=== PATIENT | male | born 1965 | race American Indian/Alaskan Native ===

== ENCOUNTER 2019-12-24 11:47 | Emergency (ER) | payer MEDICAID ==
--- NOTE | 2019-12-24 12:05 | Emergency Department Report ---
Blank Doc - Documentation Documentation: This is a 54-year-old male that presents with SI. This initial assessment/diagnostic orders/clinical plan/treatment(s) is/are subject to change based on patient's health status, clinical progression and re- assessment by fellow clinical providers in the ED. Further treatment and workup at subsequent clinical providers discretion. Patient/guardians urged not to elope from the ED as their condition may be serious if not clinically assessed and managed. Initial orders include: 1- Patient sent to MAIN ED for further evaluation and treatment 2- human resources receptionist was notified to have patient be brought back [facility]. 3- RN was notified to keep patient as close range and observation until room available 4- Patient presents with substantial risk of imminent harm to self, appears to be so unable to care for his/her own physical health and safety as to create an imminently life-endangering crisis, and has committed/expressed life endangering crisis to self. Due to this and other complaints, patient is put on psych hold.
[2019-12-24 13:15] LABS: Alanine Aminotransferase 28 units/L (7-56); Albumin 3.6 g/dL (3.9-5); BUN/Creatinine Ratio 5; Blood Urea Nitrogen 3 mg/dL (9-20); Hemolysis Index 20
[2019-12-24 13:27] LABS: Basophils % (Auto) 0.9 % (0.0-1.8); Eosinophils # (Auto) 0.2 K/mm3 (0.0-0.4); Eosinophils % (Auto) 4.6 % (0.0-4.3); Hematocrit 40.2 % (35.5-45.6); Hemoglobin 13.4 gm/dl (11.8-15.2); Lymphocytes # (Auto) 1.5 K/mm3 (1.2-5.4); Lymphocytes % (Auto) 36.3 % (13.4-35.0); Mean Corpuscular HGB Conc 33 % (32-34); Mean Corpuscular Volume 98 fl (84-94); Monocytes # (Auto) 0.5 K/mm3 (0.0-0.8); Monocytes % (Auto) 12.7 % (0.0-7.3); Platelet Count 406 K/mm3 (140-440); Red Blood Count 4.09 M/mm3 (3.65-5.03); Red Cell Distribution Width 15.5 % (13.2-15.2)
[2019-12-24] MEDS ORDERED: traMADol 50 MG TAB PO ONE (16:51)
--- NOTE | 2019-12-24 16:54 | Emergency Department Report ---
<SHON TOBIN - Last Filed: 12/24/19 16:55> ED Psych HPI - General Chief Complaint: Psych Stated Complaint: HEARING VOICES, SEEING THINGS Time Seen by Provider: 12/24/19 12:04 Source: patient Mode of arrival: Ambulatory - History of Present Illness Initial Comments: Patient is a 54-year-old F Palestinian male who is presenting with suicidal ideations. Patient states that he has been very depressed since having back surgery a week ago. He states that he had he noted he had any pain after the surgery he would not of had it. Patient is also hearing voices telling him he should harm himself. Patient states his life is spiraling out of control. Pat haley denies any homicidal ideations. - Related Data Allergies Allergy/AdvReac Type Severity Reaction Status Date / Time acetaminophen [From Tylenol] Allergy Rash Verified 12/25/19 09:46 aspirin Allergy Unknown Verified 12/25/19 09:46 furosemide [From Lasix] Allergy Rash Verified 12/25/19 09:46 ibuprofen [From Motrin] Allergy Rash Verified 12/25/19 09:46 Penicillins Allergy Rash Verified 12/25/19 09:46 ED Review of Systems Comment: All other systems reviewed and negative ED Past Medical Hx - Past Medical History Previous Medical History?: Yes Hx Psychiatric Treatment: Yes - Surgical History Past Surgical History?: No - Social History Smoking Status: Never Smoker Substance Use Type: None ED Physical Exam - General Limitations: No Limitations General appearance: alert, in no apparent distress - Head Head exam: Present: atraumatic, normocephalic - Eye Eye exam: Present: normal appearance - ENT ENT exam: Present: mucous membranes moist - Neck Neck exam: Present: normal inspection - Respiratory Respiratory exam: Present: normal lung sounds bilaterally. Absent: respiratory distress, wheezes, rales, rhonchi - Cardiovascular Cardiovascular Exam: Present: regular rate, normal rhythm. Absent: systolic murmur, diastolic murmur, rubs, gallop - GI/Abdominal GI/Abdominal exam: Present: soft, normal bowel sounds. Absent: distended, tenderness, guarding - Rectal Rectal exam: Present: deferred - Extremities Exam Extremities exam: Present: normal inspection - Back Exam Back exam: Present: normal inspection - Neurological Exam Neurological exam: Present: alert, oriented X3 - Psychiatric Psychiatric exam: Present: normal affect, normal mood - Skin Skin exam: Present: warm, dry, intact, normal color. Absent: rash ED Course - Reevaluation(s) Reevaluation #1: 12/24/19 16:55 Patient is medically cleared for psychiatric evaluation at this time. Patient is showing some paranoia and suicidal ideations and was placed on a 1013 ED Medical Decision Making - Lab Data Result diagrams: 12/24/19 12:25 12/24/19 12:25 Lab Results 12/24/19 12/24/19 12/24/19 Range/Units 12:25 12:25 12:25 WBC 4.2 L (4.5-11.0) K/mm3 RBC 4.09 (3.65-5.03) M/mm3 Hgb 13.4 (11.8-15.2) gm/dl Hct 40.2 (35.5-45.6) % MCV 98 H (84-94) fl MCH 33 H (28-32) pg MCHC 33 (32-34) % RDW 15.5 H (13.2-15.2) % Plt Count 406 (140-440) K/mm3 Lymph % (Auto) 36.3 H (13.4-35.0) % [place] % (Auto) 12.7 H (0.0-7.3) % Eos % (Auto) 4.6 H (0.0-4.3) % Baso % (Auto) 0.9 (0.0-1.8) % Lymph # 1.5 (1.2-5.4) K/mm3 [place] # 0.5 (0.0-0.8) K/mm3 Eos # 0.2 (0.0-0.4) K/mm3 Baso # 0.0 (0.0-0.1) K/mm3 Seg Neutrophils % 45.5 (40.0-70.0) % Seg Neutrophils # 1.9 (1.8-7.7) K/mm3 Sodium 141 (137-145) mmol/L Potassium 3.6 (3.6-5.0) mmol/L Chloride 104.2 (98-107) mmol/L Carbon Dioxide 21 L (22-30) mmol/L Anion Gap 19 mmol/L BUN 3 L (9-20) mg/dL Creatinine 0.6 L (0.8-1.5) mg/dL Estimated GFR > 60 ml/min BUN/Creatinine Ratio 5 % Glucose 109 H (75-100) mg/dL Calcium 9.0 (8.4-10.2) mg/dL Total Bilirubin < 0.20 (0.1-1.2) mg/dL AST 26 (5-40) units/L ALT 28 (7-56) units/L Alkaline Phosphatase 84 (35-129) units/L Total Protein 6.9 (6.3-8.2) g/dL Albumin 3.6 L (3.9-5) g/dL Albumin/Globulin Ratio 1.1 % Salicylates < 0.3 L (2.8-20.0) mg/dL Acetaminophen (10.0-30.0) ug/mL Plasma/Serum Alcohol (0-0.07) % 12/24/19 12/24/19 Range/Units 12:25 12:25 WBC (4.5-11.0) K/mm3 RBC (3.65-5.03) M/mm3 Hgb (11.8-15.2) gm/dl Hct (35.5-45.6) % MCV (84-94) fl MCH (28-32) pg MCHC (32-34) % RDW (13.2-15.2) % Plt Count (140-440) K/mm3 Lymph % (Auto) (13.4-35.0) % [place] % (Auto) (0.0-7.3) % Eos % (Auto) (0.0-4.3) % Baso % (Auto) (0.0-1.8) % Lymph # (1.2-5.4) K/mm3 [place] # (0.0-0.8) K/mm3 Eos # (0.0-0.4) K/mm3 Baso # (0.0-0.1) K/mm3 Seg Neutrophils % (40.0-70.0) % Seg Neutrophils # (1.8-7.7) K/mm3 Sodium (137-145) mmol/L Potassium (3.6-5.0) mmol/L Chloride (98-107) mmol/L Carbon Dioxide (22-30) mmol/L Anion Gap mmol/L BUN (9-20) mg/dL Creatinine (0.8-1.5) mg/dL Estimated GFR ml/min BUN/Creatinine Ratio % Glucose (75-100) mg/dL Calcium (8.4-10.2) mg/dL Total Bilirubin (0.1-1.2) mg/dL AST (5-40) units/L ALT (7-56) units/L Alkaline Phosphatase (35-129) units/L Total Protein (6.3-8.2) g/dL Albumin (3.9-5) g/dL Albumin/Globulin Ratio % Salicylates (2.8-20.0) mg/dL Acetaminophen < 5.0 L (10.0-30.0) ug/mL Plasma/Serum Alcohol 0.12 H (0-0.07) % ED Disposition Clinical Impression: Suicidal ideation Disposition: - TO HOME OR SELFCARE Condition: Stable Prescriptions: traZODone [Desyrel] 50 mg PO QHS #30 tablet Mirtazapine [Remeron 15mg TAB] 15 mg PO QHS #30 tablet QUEtiapine [SEROquel] 100 mg PO QHS #30 tablet risperiDONE [RisperDAL] 0.5 mg PO BID #120 tablet Sertraline [Zoloft] 25 mg PO QDAY #30 tablet Referrals: DESEAN DELGADO MD [Primary Care Provider] - 7 Days [facility] [Outside] - 3-5 Days <MAMTA TOBIN - Last Filed: 12/31/19 09:53> ED Review of Systems ROS: Stated complaint: HEARING VOICES, SEEING THINGS Other details as noted in HPI ED Course Vital Signs 12/24/19 12/24/19 12/24/19 12:03 13:00 20:59 Temperature 98.5 F 97.5 F L 98.8 F Pulse Rate 106 H 96 H 84 Respiratory 16 20 16 Rate Blood Pressure 125/81 Blood Pressure [Left] Blood Pressure 140/102 137/91 [Right] O2 Sat by Pulse 93 97 96 Oximetry 12/25/19 12/25/19 12/25/19 02:20 08:34 15:43 Temperature 98.0 F 98.3 F 98.4 F Pulse Rate 83 96 H 104 H Respiratory 18 18 20 Rate Blood Pressure Blood Pressure [Left] Blood Pressure 149/101 131/87 127/92 [Right] O2 Sat by Pulse 94 96 97 Oximetry 12/25/19 12/26/19 12/26/19 20:47 01:00 13:00 Temperature 98.8 F 98.2 F 98.7 F Pulse Rate 90 88 108 H Respiratory 18 20 22 Rate Blood Pressure Blood Pressure 142/103 [Left] Blood Pressure 143/89 139/87 139/105 [Right] O2 Sat by Pulse 97 99 95 Oximetry 12/26/19 12/26/19 12/26/19 19:00 21:25 21:26 Temperature 98.4 F Pulse Rate 94 H 94 H 94 H Respiratory 18 Rate Blood Pressure 148/99 148/99 Blood Pressure 148/99 [Left] Blood Pressure [Right] O2 Sat by Pulse 98 Oximetry 12/27/19 12/27/19 12/27/19 01:00 06:19 07:45 Temperature 98.2 F 98.0 F Pulse Rate 90 90 93 H Respiratory 22 20 Rate Blood Pressure 144/89 Blood Pressure 140/89 116/69 [Left] Blood Pressure [Right] O2 Sat by Pulse 98 98 Oximetry 12/27/19 12/27/19 12/27/19 08:00 12:10 14:43 Temperature 98.3 F Pulse Rate 88 82 Respiratory 18 20 Rate Blood Pressure 116/85 Blood Pressure 125/82 [Left] Blood Pressure [Right] O2 Sat by Pulse 97 96 Oximetry 12/27/19 12/27/19 12/28/19 19:30 20:28 02:11 Temperature 98.8 F 97.9 F Pulse Rate 96 H 104 H Respiratory 18 18 18 Rate Blood Pressure Blood Pressure 133/86 100/69 [Left] Blood Pressure [Right] O2 Sat by Pulse 100 94 96 Oximetry 12/28/19 12/28/19 12/28/19 08:15 10:35 11:28 Temperature 97.9 F Pulse Rate 86 86 111 H Respiratory 18 Rate Blood Pressure 114/85 111/74 Blood Pressure 114/85 [Left] Blood Pressure [Right] O2 Sat by Pulse 100 Oximetry 12/28/19 12/28/19 12/29/19 14:24 20:37 02:10 Temperature 98.5 F 98.7 F 97.8 F Pulse Rate 100 H 90 90 Respiratory 20 18 18 Rate Blood Pressure Blood Pressure 104/83 138/93 129/80 [Left] Blood Pressure [Right] O2 Sat by Pulse 100 99 100 Oximetry 12/29/19 12/29/19 12/29/19 07:53 11:00 13:00 Temperature 98.7 F 97.3 F L Pulse Rate 90 89 108 H Respiratory 20 18 Rate Blood Pressure 122/85 Blood Pressure 122/85 149/93 [Left] Blood Pressure [Right] O2 Sat by Pulse 99 98 Oximetry 12/29/19 12/29/19 12/29/19 15:26 20:54 21:17 Temperature 98.5 F Pulse Rate 108 H 106 H Respiratory 20 20 Rate Blood Pressure 149/93 Blood Pressure 127/89 [Left] Blood Pressure [Right] O2 Sat by Pulse 95 95 Oximetry 12/29/19 12/29/19 12/29/19 22:27 22:28 23:27 Temperature Pulse Rate 106 H Respiratory 20 20 Rate Blood Pressure 137/90 Blood Pressure [Left] Blood Pressure [Right] O2 Sat by Pulse Oximetry 12/30/19 12/30/19 12/30/19 00:00 02:00 06:12 Temperature 98.5 F Pulse Rate 106 H 88 88 Respiratory 20 Rate Blood Pressure 137/90 118/80 Blood Pressure 124/88 [Left] Blood Pressure [Right] O2 Sat by Pulse 98 Oximetry 12/30/19 12/30/19 12/30/19 06:16 07:00 13:00 Temperature 97.9 F 98.2 F Pulse Rate 88 92 H Respiratory 20 16 20 Rate Blood Pressure Blood Pressure 120/84 125/93 [Left] Blood Pressure [Right] O2 Sat by Pulse 98 98 Oximetry 12/30/19 12/30/19 12/31/19 19:30 20:00 01:40 Temperature 98.5 F 98.2 F Pulse Rate 107 H 90 Respiratory 16 20 16 Rate Blood Pressure Blood Pressure 159/98 140/90 [Left] Blood Pressure [Right] O2 Sat by Pulse 98 95 98 Oximetry 12/31/19 07:28 Temperature Pulse Rate 90 Respiratory Rate Blood Pressure 140/90 Blood Pressure [Left] Blood Pressure [Right] O2 Sat by Pulse Oximetry ED Medical Decision Making - Lab Data Result diagrams: 12/24/19 12:25 12/24/19 12:25 - Medical Decision Making I discussed Mr. Dunn's presentation with our psychiatrist. [facility]Ur psychiatrist evaluated Mr. Enriquez today. 1013 has been rescinded by psychiatric team. Upon my evaluation, Mr. Luque does not have any acute medical condition which needs to be addressed at this time. He is discharged home. Discharge medication provided by our psychiatric team. Critical care attestation.: If time is entered above; I have spent that time in minutes in the direct care of this critically ill patient, excluding procedure time. ED Disposition Is pt being admited?: No Does the pt Need Aspirin: No
[2019-12-24 17:36] LABS: Bacteria,Urine 3+ /HPF (Negative); Bilirubin,Urine NEG (Negative); Blood,Urine SM (Negative); Color,Urine Straw (Yellow); Protein,Urine <15 mg/dL mg/dL (Negative); Sperm,Urine 1+ /HPF (NP); Urobilinogen,Urine < 2.0 mg/dL (<2.0)
[2019-12-24 17:38] LABS: Amphetamine Screen,Urine PRESUMPTIVE NEGATIVE; Benzodiazepines Screen,Urine PRESUMPTIVE NEGATIVE; Cannabinoid Screen,Urine PRESUMPTIVE NEGATIVE; Cocaine Screen,Urine PRESUMPTIVE NEGATIVE; Methadone Screen,Urine PRESUMPTIVE NEGATIVE; Opiate Screen,Urine PRESUMPTIVE NEGATIVE
[2019-12-24] MEDS ORDERED: traZODone 50 MG TAB PO ONE (23:24)
[2019-12-24] MEDS: traMADol 50 MG TAB PO PRN (23:28)
[2019-12-24] MEDS ORDERED: LORazepam 2 MG TAB PO PRN (23:32)
[2019-12-25] MEDS: traMADol 50 MG TAB PO PRN ×2 (10:56→19:54)
[2019-12-25] MEDS: LORazepam 2 MG TAB PO PRN (10:56)
[2019-12-25] MEDS: traZODone 50 MG TAB PO SCH (21:54)
[2019-12-25] MEDS: MIRTAZAPINE 15 MG TAB PO SCH (21:54)
--- NOTE | 2019-12-26 14:26 | Consultation ---
History of Present Illness - Reason for Consult Consult date: 12/26/19 Reason for consult: psychiatric assessment - History of Present Psychiatric Illness is a 54-year-old -Scottish male, the patient is alert oriented x4, he is able to make his needs known, he is dressed appropriately for the occasion. The patient reports suicidal ideations, the patient reports that he went to Health system while waiting for 6 hours he was discharged home, he was given back all his medications and eventually took all his medications in front of the nurse in the emergency room. The patient is is unable to say how he got to this facility. He does report a history of paranoid schizophrenia and depression. The patient reports that his depression got worse since he had back surgery a couple months ago. The patient does report hearing voices telling him to kill himself he also reports visual imaging from his peripheral vision. The patient report that he is severely depressed and scared he also reports that he drinks daily to numb his pain. The patient report that he is eating well but he does not sleep well. PAST PSYCHIATRIC HISTORY: Diagnoses: Schizophrenia, depression Suicide attempts or Self-harm behavior yes Prior psychiatric hospitalizations: [facility] Substance Abuse history: Cocaine Previous psychiatric medications tried: Remeron, risperidone, Cogentin, Seroquel, Haldol Outpatient treatment: Yes PAST MEDICAL HISTORY: CHF, gout, HTN, COPD, asthma Family Psychiatric History None reported or documented SOCIAL HISTORY Marital Status: Single Living Arrangements: Home with Employment Status: Disabled Access to guns/weapons: Denies Education: 12th grade History of Abuse: Denies Legal History: Yes ROS: Constitutional: Negative for weight loss ENT: Negative for stridor Respiratory: Negative for cough or hemoptysis All other systems reviewed and are negative MENTAL STATUS General Appearance and Behavior: age appropriate, good eye contact, cooperative with questioning and polite Cooperation: Cooperative Psychomotor Behavior: within normal limits Mood: OK Affect and affective range: Congruent with stated mood Thought Process: Fluent/Logical and Goal-directed Thought Content: Within reality Speech: Normal volume and Regular rate and rhythm Intellectual Functioning Average Suicidal Ideation: yes Homicidal Ideation: Denies HI Impulse Control: intact Insight and Judgment: poor Memory: forgetful Attention: Normal Orientation: alert and oriented MEDICATIONS Start Risperdal 0.5 mg twice Start Seroquel 200 mg nightly Risks, benefits and alternatives of medications discussed with the patient, questions answered and consent obtained from patient. PSYCHOTHERAPY: Supportive psychotherapy provided MEDICAL: Per primary team DELIRIUM PRECAUTIONS: Please re-orient patient frequently, keep lights on during the day, and minimize benzodiazepines and opiates as these medications could worsen patient's confusion. PHARMACEUTICAL OFFICER: DISPOSITION: Patient require inpatient hospitalization at this time, the patient is suicidal with psychotic features, will follow until patient is placed in an inpatient facility LEGAL STATUS: 1013 FOLLOW-UP: Will follow Medications and Allergies Allergies Allergy/AdvReac Type Severity Reaction Status Date / Time acetaminophen [From Tylenol] Allergy Rash Verified 12/25/19 09:46 aspirin Allergy Unknown Verified 12/25/19 09:46 furosemide [From Lasix] Allergy Rash Verified 12/25/19 09:46 ibuprofen [From Motrin] Allergy Rash Verified 12/25/19 09:46 Penicillins Allergy Rash Verified 12/25/19 09:46 Home Medications Medication Instructions Recorded Confirmed Last Taken Type Albuterol Sulfate [Proair 90 mcg IH Q4-6H 30 Days #1 05/13/19 12/25/19 Unknown Rx Respiclick] aer.[email or web address] Colchicine 0.6 mg PO BID #60 capsule 05/13/19 12/25/19 Unknown Rx Fluticasone [Flonase] 1 spray INNOSTRIL DAILY 30 Days #1 05/13/19 12/25/19 Unknown Rx bottle Mirtazapine [Remeron 15mg TAB] 15 mg PO QHS #30 tablet 05/13/19 12/25/19 Unknown Rx Tamsulosin [Flomax] 0.4 mg PO DAILY #30 capsule 05/13/19 12/25/19 Unknown Rx allopurinoL [Zyloprim] 100 mg PO QDAY #30 tablet 05/13/19 12/25/19 2 Days Ago Rx ~11/14/19 guaiFENesin ER [Mucinex ER] 600 mg PO BID #60 tablet 05/13/19 12/25/19 Unknown Rx Bumetanide [Bumex 1 mg tab] 1 mg PO BID #60 tablet 10/22/19 12/25/19 2 Days Ago Rx ~11/14/19 Indomethacin [Indocin] 50 mg PO Q12HR #60 capsule 10/22/19 12/25/19 Unknown Rx Albuterol Sulfate [Proair 90 mcg IH Q4HR #1 aer.pow.ba 11/09/19 12/25/19 Unknown Rx Respiclick] Benzonatate [Tessalon Perles] 100 mg PO Q8HR #30 capsule 11/09/19 12/25/19 Unknown Rx methylPREDNISolone [Medrol 4MG 4 mg PO QDAY #1 tab.ds.pk 11/09/19 12/25/19 Unknown Rx DOSEPAK (21 tabs)] Active Meds: Active Medications Lorazepam (Ativan) 2 mg PO Q1HR PRN PRN Reason: CIWA-Ar 8-15 Last Admin: 12/25/19 10:56 Dose: 2 mg Documented by: Lorazepam (Ativan) 4 mg PO Q1HR PRN PRN Reason: CIWA-Ar 16-25 Mirtazapine (Remeron) 15 mg PO QHS [facility] Last Admin: 12/25/19 21:54 Dose: 15 mg Documented by: Tramadol HCl (Ultram) 50 mg PO Q6HR PRN PRN Reason: Pain , Severe (7-10) Last Admin: 12/25/19 19:54 Dose: 50 mg Documented by: Trazodone HCl (Desyrel) 50 mg PO QHS [facility] Last Admin: 12/25/19 21:54 Dose: 50 mg Documented by: Mental Status Exam - Vital signs Last Vital Signs Temp 98.7 F 12/26/19 13:00 Pulse 108 H 12/26/19 13:00 Resp 22 12/26/19 13:00 BP 139/105 12/26/19 13:00 Pulse Ox 95 12/26/19 13:00 Results Result Diagrams: 12/24/19 12:25 12/24/19 12:25 All other labs normal.
[2019-12-26] MEDS: amLODIPine 10 MG TAB PO SCH (21:25)
[2019-12-26] MEDS: traMADol 50 MG TAB PO PRN (21:26)
[2019-12-26] MEDS: dilTIAZem 30 MG TAB PO SCH (21:26)
[2019-12-26] MEDS: MIRTAZAPINE 15 MG TAB PO SCH (22:17)
[2019-12-26] MEDS: QUEtiapine 200 MG TAB PO SCH (22:17)
[2019-12-26] MEDS: risperiDONE 0.25 MG TAB PO SCH (22:18)
[2019-12-26] MEDS: traZODone 50 MG TAB PO SCH (22:19)
[2019-12-26] MEDS: BUMETANIDE 1 MG TAB PO SCH (22:43)
[2019-12-27] MEDS: dilTIAZem 30 MG TAB PO SCH ×3 (00:28→12:10)
[2019-12-27] MEDS: risperiDONE 0.25 MG TAB PO SCH (12:10)
[2019-12-27] MEDS: BUMETANIDE 1 MG TAB PO SCH (12:10)
[2019-12-27] MEDS: amLODIPine 10 MG TAB PO SCH (12:10)
[2019-12-27] MEDS: traMADol 50 MG TAB PO PRN (13:12)
--- NOTE | 2019-12-27 13:31 | Progress Note ---
Subjective - Reason for Consult Consult date: 12/27/19 Reason for consult: psychiatric assessment - Chief Complaint Chief complaint: The patient's medical record was reviewed and the patient's progress was discussed with the nursing staff. The nurse note states. Admiits SI with no plan. States 'I want my meds for anxiety." slight tremors felt with this nurse hands on his. During my interview with the patient this morning, the patient was lying supine in bed, the patient is alert oriented x4, he is dressed appropriately for the occasion, he maintains eye contact. The patient reports that he still having suicidal thoughts, he denies homicidal ideations. The patient report hearing voices telling him to kill himself, he also reports visual hallucination at times. He reports that he is sleeping better and his appetite is good. The patient reports that he is still depressed but think he is doing much better today. ROS: Constitutional: Negative for weight loss ENT: Negative for stridor Respiratory: Negative for cough or hemoptysis All other systems reviewed and are negative MENTAL STATUS General Appearance and Behavior: age appropriate, good eye contact, cooperative with questioning and polite Cooperation: Cooperative Psychomotor Behavior: within normal limits Mood: "good" Affect and affective range: Congruent with stated mood Thought Process: Fluent/Logical and Goal-directed Thought Content: Within reality Speech: Normal volume and Regular rate and rhythm Intellectual Functioning Average Suicidal Ideation: to overdose Homicidal Ideation: Denies HI Impulse Control: intact Insight and Judgment: fair Memory: Normal Attention: Normal Orientation: alert and oriented RECOMMENDATIONS MEDICATIONS: continue with current medication on chart Risks, benefits and alternatives of medications discussed with the patient, questions answered and consent obtained from patient. PSYCHOTHERAPY: Supportive psychotherapy provided MEDICAL: Per primary team DELIRIUM PRECAUTIONS: Please re-orient patient frequently, keep lights on during the day, and minimize benzodiazepines and opiates as these medications could worsen patient's confusion. HEARING CARE PRACTITIONER: DISPOSITION: Patient require inpatient hospitalization at this time, the patient is suicidal with psychotic features, will follow until patient is placed in an inpatient facility LEGAL STATUS: 1013 FOLLOW-UP: Will follow Mental Status Exam - Vital signs Last Vital Signs Temp 98.0 F 12/27/19 07:45 Pulse 88 12/27/19 12:10 Resp 18 12/27/19 08:00 BP 116/85 12/27/19 12:10 Pulse Ox 97 12/27/19 08:00
[2019-12-27] MEDS: LORazepam 2 MG TAB PO PRN (15:33)
[2019-12-28] MEDS: risperiDONE 0.25 MG TAB PO SCH ×3 (00:30→21:52)
[2019-12-28] MEDS: MIRTAZAPINE 15 MG TAB PO SCH ×2 (00:30→21:52)
[2019-12-28] MEDS: traZODone 50 MG TAB PO SCH ×2 (00:30→21:51)
[2019-12-28] MEDS: BUMETANIDE 1 MG TAB PO SCH ×3 (00:30→22:22)
[2019-12-28] MEDS: QUEtiapine 200 MG TAB PO SCH ×2 (00:30→21:52)
[2019-12-28] MEDS: dilTIAZem 30 MG TAB PO SCH ×2 (02:32→11:28)
[2019-12-28] MEDS: amLODIPine 10 MG TAB PO SCH (10:35)
[2019-12-28] MEDS: allopurinoL 100 MG TAB PO SCH (11:30)
[2019-12-28] MEDS: traMADol 50 MG TAB PO PRN (11:30)
--- NOTE | 2019-12-28 13:06 | Progress Note ---
Subjective - Reason for Consult Consult date: 12/28/19 Reason for consult: psychiatric assessment - Chief Complaint Chief complaint: The patient's medical record was reviewed and the patient's progress was discussed with the nursing staff. The nurse note states. Pt is laying down resting comfortably with eyes closed. Respirations even and unlabored. Room cleared for patient safety. Per report pt is experiencing SI with no plan and HI. Pt has reportedly been non-compliant with medications for a few months; exact amount of time is unknown. No s/sx of acute distress noted at this time. Pt is awaiting placement. Will continue to monitor. During my interview with the patient this morning, the patient was lying supine in bed, the patient is alert oriented x4, he is dressed appropriately for the occasion, he maintains eye contact. The patient reports that he still having suicidal thoughts, he denies homicidal ideations. The patient report hearing voices telling him to kill himself, he also reports visual hallucination at times, seeing shadows. He reports that he is sleeping better and his appetite is good. The patient reports that he is still depressed and feel like he is in a box. ROS: Constitutional: Negative for weight loss ENT: Negative for stridor Respiratory: Negative for cough or hemoptysis All other systems reviewed and are negative MENTAL STATUS General Appearance and Behavior: age appropriate, good eye contact, cooperative with questioning and polite Cooperation: Cooperative Psychomotor Behavior: within normal limits Mood: "ok" Affect and affective range: Congruent with stated mood Thought Process: Fluent/Logical and Goal-directed Thought Content: Within reality Speech: Normal volume and Regular rate and rhythm Intellectual Functioning Average Suicidal Ideation: shoot self Homicidal Ideation: Denies HI Impulse Control: intact Insight and Judgment: fair Memory: Normal Attention: Normal Orientation: alert and oriented RECOMMENDATIONS MEDICATIONS: start zoloft 25mg -depression Risks, benefits and alternatives of medications discussed with the patient, questions answered and consent obtained from patient. PSYCHOTHERAPY: Supportive psychotherapy provided MEDICAL: Per primary team DELIRIUM PRECAUTIONS: Please re-orient patient frequently, keep lights on during the day, and minimize benzodiazepines and opiates as these medications could worsen patient's confusion. VETERINARIAN POULTRY: DISPOSITION: Patient require inpatient hospitalization at this time, the patient is suicidal with psychotic features, will follow until patient is placed in an inpatient facility LEGAL STATUS: 1013 FOLLOW-UP: Will follow Mental Status Exam - Vital signs Last Vital Signs Temp 97.9 F 12/28/19 08:15 Pulse 111 H 12/28/19 11:28 Resp 18 12/28/19 08:15 BP 111/74 12/28/19 11:28 Pulse Ox 100 12/28/19 08:15
[2019-12-29] MEDS: dilTIAZem 30 MG TAB PO SCH ×6 (00:07→22:29)
[2019-12-29] MEDS: amLODIPine 10 MG TAB PO SCH (11:00)
[2019-12-29] MEDS: risperiDONE 0.25 MG TAB PO SCH ×2 (11:00→22:32)
[2019-12-29] MEDS: BUMETANIDE 1 MG TAB PO SCH ×2 (11:00→22:36)
[2019-12-29] MEDS: SERTRALINE 25 MG TAB PO SCH (11:00)
[2019-12-29] MEDS: allopurinoL 100 MG TAB PO SCH (11:00)
--- NOTE | 2019-12-29 13:50 | Progress Note ---
Subjective - Reason for Consult Consult date: 12/29/19 Reason for consult: psychiatric assessment - Chief Complaint Chief complaint: The patient's medical record was reviewed and the patient's progress was discussed with the nursing staff. The nurse note states. resting comfortably on stretcher with eyes closed. no signs of respiratory distress noted During my interview with the patient this morning, the patient was lying supine in bed, the patient is alert oriented x4, he is dressed appropriately for the occasion, he maintains eye contact. The patient reports that he still having suicidal thoughts, he denies homicidal ideations. The patient report hearing voices telling him to kill himself, he also reports visual hallucination at times, seeing shadows. He reports that he is sleeping better and his appetite is good. The patient reports that he is still depressed. ROS: Constitutional: Negative for weight loss ENT: Negative for stridor Respiratory: Negative for cough or hemoptysis All other systems reviewed and are negative MENTAL STATUS General Appearance and Behavior: age appropriate, good eye contact, cooperative with questioning and polite Cooperation: Cooperative Psychomotor Behavior: within normal limits Mood: "not sure" Affect and affective range: Congruent with stated mood Thought Process: Fluent/Logical and Goal-directed Thought Content: Within reality Speech: Normal volume and Regular rate and rhythm Intellectual Functioning Average Suicidal Ideation: shoot self Homicidal Ideation: Denies HI Impulse Control: intact Insight and Judgment: fair Memory: Normal Attention: Normal Orientation: alert and oriented RECOMMENDATIONS MEDICATIONS: continue medication on chart Risks, benefits and alternatives of medications discussed with the patient, questions answered and consent obtained from patient. PSYCHOTHERAPY: Supportive psychotherapy provided MEDICAL: Per primary team DELIRIUM PRECAUTIONS: Please re-orient patient frequently, keep lights on during the day, and minimize benzodiazepines and opiates as these medications could worsen patient's confusion. 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
[2019-12-29] MEDS ORDERED: ACETAMINOPHEN 325 MG TAB ONE ×2 (13:52→20:15)
[2019-12-29] MEDS: traMADol 50 MG TAB PO PRN ×2 (13:57→22:27)
[2019-12-29] MEDS: traZODone 50 MG TAB PO SCH (22:30)
[2019-12-29] MEDS: MIRTAZAPINE 15 MG TAB PO SCH (22:31)
[2019-12-29] MEDS: QUEtiapine 200 MG TAB PO SCH (22:32)
[2019-12-29] MEDS ORDERED: ALBUTEROL 8.5 GM INHALATION IH PRN (22:54)
[2019-12-29] MEDS ORDERED: ALBUTEROL 2.5 MG/3 ML NEBU IH PRN (23:49)
[2019-12-30] MEDS: dilTIAZem 30 MG TAB PO SCH ×3 (06:12→16:28)
[2019-12-30] MEDS: traMADol 50 MG TAB PO PRN ×2 (06:16→22:03)
[2019-12-30] MEDS: BUMETANIDE 1 MG TAB PO SCH ×2 (11:00→21:59)
[2019-12-30] MEDS: SERTRALINE 25 MG TAB PO SCH (11:00)
[2019-12-30] MEDS: amLODIPine 10 MG TAB PO SCH (11:00)
[2019-12-30] MEDS: allopurinoL 100 MG TAB PO SCH (11:00)
[2019-12-30] MEDS: risperiDONE 0.25 MG TAB PO SCH ×2 (11:00→22:05)
--- NOTE | 2019-12-30 14:02 | Progress Note ---
Subjective - Reason for Consult Consult date: 12/30/19 Reason for consult: psychiatric assessment - Chief Complaint Chief complaint: During my interview with the patient this morning, the patient was lying supine in bed, the patient is alert oriented x4, he is dressed appropriately for the occasion, he maintains eye contact. The patient reports that he still having suicidal thoughts, he denies homicidal ideations. The patient report hearing voices telling him to kill himself, he also reports visual hallucination at times, seeing shadows. He reports that he is sleeping better and his appetite is good. The patient reports that he is still depressed. He reports that he is constantly dizzy. ROS: Constitutional: Negative for weight loss ENT: Negative for stridor Respiratory: Negative for cough or hemoptysis All other systems reviewed and are negative MENTAL STATUS General Appearance and Behavior: age appropriate, good eye contact, cooperative with questioning and polite Cooperation: Cooperative Psychomotor Behavior: within normal limits Mood: "ok" Affect and affective range: Congruent with stated mood Thought Process: Fluent/Logical and Goal-directed Thought Content: Within reality Speech: Normal volume and Regular rate and rhythm Intellectual Functioning Average Suicidal Ideation: shoot self Homicidal Ideation: Denies HI Impulse Control: intact Insight and Judgment: fair Memory: Normal Attention: Normal Orientation: alert and oriented RECOMMENDATIONS MEDICATIONS: decrease seroquel 100mh qhs - decrease dizziness Risks, benefits and alternatives of medications discussed with the patient, questions answered and consent obtained from patient. PSYCHOTHERAPY: Supportive psychotherapy provided MEDICAL: Per primary team DELIRIUM PRECAUTIONS: Please re-orient patient frequently, keep lights on during the day, and minimize benzodiazepines and opiates as these medications could worsen patient's confusion. 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
[2019-12-30] MEDS: traZODone 50 MG TAB PO SCH (21:59)
[2019-12-30] MEDS ORDERED: QUEtiapine 100 MG TAB PO SCH (22:00)
[2019-12-30] MEDS: MIRTAZAPINE 15 MG TAB PO SCH (22:04)
[2019-12-31 03:30] VITALS: BP 140/90
[2019-12-31] MEDS: dilTIAZem 30 MG TAB PO SCH ×2 (07:28→07:29)
--- NOTE | 2019-12-31 09:36 | Progress Note ---
Subjective - Reason for Consult Consult date: 12/31/19 Reason for consult: Psychiatry follow up - Chief Complaint Chief complaint: Patient seen by me this morning. He is lying in bed watching TV; alert, fully oriented and cooperative. He is able to hold long meaningful conversation, maintains good eye contact, reports eating and sleeping well. He reports being stressed about his multiple medical problems including CHF, recent back surgery and knee. He endorses hearing voices all the time and chronic suicidal thoughts because of his chronic medical and social problems but denies being actively suicidal this morning and no suicidal plans. He completely denies homicidal thoughts. He is no longer requiring PRN Lorazepam and no alcohol withdrawal symptoms. Patient states that his current psychiatric medications (Seroquel, Remeron and Risperidone) are working well for him and he believes this is the right combination for him. Patient is asking to go to a facility to address his heart condition, breathing difficulties and chronic pains. ROS: Constitutional: Negative for weight loss ENT: Negative for stridor Respiratory: Negative for cough or hemoptysis All other systems reviewed and are negative MENTAL STATUS General Appearance and Behavior: age appropriate, good eye contact, cooperative with questioning and polite Cooperation: Cooperative Psychomotor Behavior: within normal limits Mood: "ok" Affect and affective range: Congruent with stated mood Thought Process: Fluent/Logical and Goal-directed Thought Content: Within reality Speech: Normal volume and Regular rate and rhythm Intellectual Functioning Average Suicidal Ideation: Chronic SI. No plans or intent Homicidal Ideation: Denies HI Impulse Control: intact Insight and Judgment: Good Memory: Normal Attention: Normal Orientation: alert and oriented RECOMMENDATIONS MEDICATIONS: Continue current meds as patient reports they are beneficial and denies side effects Risks, benefits and alternatives of medications discussed with the patient, questions answered and consent obtained from patient. PSYCHOTHERAPY: Supportive psychotherapy provided MEDICAL: Per primary team DELIRIUM PRECAUTIONS: N/A LEAD MEDICAL TECHNOLOGIST: May discontinue DISPOSITION: Patient does not meet criteria for Inpatient Psychiatric hospitalization. I recommend out-patient treatment. Please provide out-patient resources LEGAL STATUS: 1013 rescinded FOLLOW-UP: Will sign off Mental Status Exam - Vital signs Last Vital Signs Temp 98.2 F 12/31/19 01:40 Pulse 90 12/31/19 07:28 Resp 16 12/31/19 01:40 BP 140/90 12/31/19 07:28 Pulse Ox 98 12/31/19 01:40
[2019-12-31] MEDS: amLODIPine 10 MG TAB PO SCH (10:58)
[2019-12-31] MEDS: SERTRALINE 25 MG TAB PO SCH (10:58)
[2019-12-31] MEDS: risperiDONE 0.25 MG TAB PO SCH (10:58)
[2019-12-31] MEDS: BUMETANIDE 1 MG TAB PO SCH (10:58)
[2019-12-31] MEDS: allopurinoL 100 MG TAB PO SCH (10:59)
== END 2019-12-31 11:07 | disposition home or self-care (01) ==
LOC: ED 11:47 → EEVIPCON 11:47 → ED 12-31 11:07
DX: R45.851 Suicidal ideations (principal); Z98.890 Other specified postprocedural states; Z88.0 Allergy status to penicillin; Z88.6 Allergy status to analgesic agent; Z88.8 Allergy status to other drugs, medicaments and biological substances
CPT/HCPCS: 36415; 80053; 80307; 80320; 81001; 85025; G0480

== ENCOUNTER 2020-01-29 23:52 | Emergency (ER) | payer MEDICAID ==
[2020-01-30 01:20] LABS: Basophils % (Auto) 1.1 % (0.0-1.8); Eosinophils # (Auto) 0.2 K/mm3 (0.0-0.4); Eosinophils % (Auto) 5.7 % (0.0-4.3); Hematocrit 39.9 % (35.5-45.6); Hemoglobin 13.4 gm/dl (11.8-15.2); Lymphocytes # (Auto) 1.7 K/mm3 (1.2-5.4); Lymphocytes % (Auto) 41.8 % (13.4-35.0); Mean Corpuscular HGB Conc 34 % (32-34); Mean Corpuscular Volume 93 fl (84-94); Monocytes # (Auto) 0.4 K/mm3 (0.0-0.8); Monocytes % (Auto) 9.7 % (0.0-7.3); Platelet Count 247 K/mm3 (140-440); Red Cell Distribution Width 15.8 % (13.2-15.2)
[2020-01-30 01:36] LABS: BUN/Creatinine Ratio 11; Blood Urea Nitrogen 8 mg/dL (9-20); Calcium 9.1 mg/dL (8.4-10.2); Hemolysis Index 8
--- NOTE | 2020-01-30 02:08 | Emergency Department Report ---
ED General Adult HPI - General Chief complaint: Extremity Problem,Nontraumatic Stated complaint: BILATERAL HAND/LEG EDEMA Time Seen by Provider: 01/30/20 01:42 Source: patient Mode of arrival: Ambulatory Limitations: No Limitations - History of Present Illness Initial comments: 54 y.o. male with history of gout, hypertension, COPD, bipolar who presents c omplaint of suicidal ideation. Patient states that he does not want to live anymore. Patient states that he took all of his OxyContin pills earlier this morning. Patient denies any concomitant ingestions. Patient states that he takes OxyContin therapy. Patient however is in no respiratory distress and is fully talkative. Patient complains of hand and lower extremity edema. Patient denies any chest pain or shortness of breath. Patient has had no auditory hallucinations. Patient denies any homicidal ideation. - Related Data Home Medications Medication Instructions Recorded Confirmed Last Taken amLODIPine 1 tab PO DAILY 12/26/19 12/26/19 Unknown dilTIAZem [CarDIZEM] 30 mg PO Q6HR 12/26/19 12/26/19 Unknown oxyCODONE [roxiCODONE] 15 mg PO Q6HR PRN 12/26/19 12/26/19 Unknown Previous Rx's Medication Instructions Recorded Last Taken Type Albuterol Sulfate [Proair 90 mcg IH Q4-6H 30 Days #1 05/13/19 Unknown Rx Respiclick] aer.pow.ba Colchicine 0.6 mg PO BID #60 capsule 05/13/19 Unknown Rx Fluticasone [Flonase] 1 spray INNOSTRIL DAILY 30 Days #1 05/13/19 Unknown Rx bottle Tamsulosin [Flomax] 0.4 mg PO DAILY #30 capsule 05/13/19 Unknown Rx allopurinoL [Zyloprim] 100 mg PO QDAY #30 tablet 05/13/19 2 Days Ago Rx ~11/14/19 guaiFENesin ER [Mucinex ER] 600 mg PO BID #60 tablet 05/13/19 Unknown Rx Bumetanide [Bumex 1 mg tab] 1 mg PO BID #60 tablet 10/22/19 2 Days Ago Rx ~11/14/19 Indomethacin [Indocin] 50 mg PO Q12HR #60 capsule 10/22/19 Unknown Rx Albuterol Sulfate [Proair 90 mcg IH Q4HR #1 aer.pow.ba 11/09/19 Unknown Rx Respiclick] Benzonatate [Tessalon Perles] 100 mg PO Q8HR #30 capsule 11/09/19 Unknown Rx methylPREDNISolone [Medrol 4MG 4 mg PO QDAY #1 tab.ds.pk 11/09/19 Unknown Rx DOSEPAK (21 tabs)] Mirtazapine [Remeron 15mg TAB] 15 mg PO QHS #30 tablet 12/31/19 Unknown Rx QUEtiapine [SEROquel] 100 mg PO QHS #30 tablet 12/31/19 Unknown Rx Sertraline [Zoloft] 25 mg PO QDAY #30 tablet 12/31/19 Unknown Rx risperiDONE [RisperDAL] 0.5 mg PO BID #120 tablet 12/31/19 Unknown Rx traZODone [Desyrel] 50 mg PO QHS #30 tablet 12/31/19 Unknown Rx Allergies Allergy/AdvReac Type Severity Reaction Status Date / Time acetaminophen [From Tylenol] Allergy Rash Verified 12/25/19 09:46 aspirin Allergy Unknown Verified 12/25/19 09:46 furosemide [From Lasix] Allergy Rash Verified 12/25/19 09:46 ibuprofen [From Motrin] Allergy Rash Verified 12/25/19 09:46 Penicillins Allergy Rash Verified 12/25/19 09:46 ED Review of Systems ROS: Stated complaint: BILATERAL HAND/LEG EDEMA Other details as noted in HPI Constitutional: denies: chills, fever Eyes: denies: eye pain, eye discharge, vision change ENT: denies: ear pain, throat pain Respiratory: denies: cough, shortness of breath, wheezing Cardiovascular: denies: chest pain, palpitations Endocrine: no symptoms reported Gastrointestinal: denies: abdominal pain, nausea, diarrhea Genitourinary: denies: urgency, dysuria Musculoskeletal: denies: back pain, joint swelling, arthralgia Skin: denies: rash, lesions Neurological: denies: headache, weakness, paresthesias Psychiatric: suicidal thoughts. denies: anxiety, depression, auditory hallucinations Hematological/Lymphatic: denies: easy bleeding, easy bruising ED Past Medical Hx - Past Medical History Hx Hypertension: Yes Hx Heart Attack/AMI: No Hx Congestive Heart Failure: Yes Hx Diabetes: No Hx Deep Vein Thrombosis: No Hx Pulmonary Embolism: No Hx Arthritis: No Hx Seizures: Yes Hx Psychiatric Treatment: Yes (Schizophrenia) Hx Asthma: Yes Hx COPD: No Hx Tuberculosis: No Additional medical history: BPH - Surgical History Hx Coronary Stent: No Hx Pacemaker: No Hx Internal Defibrillator: No Additional Surgical History: Right forearm tendon repair, right lower extremity tendon repair - Social History Smoking Status: Never Smoker Substance Use Type: Alcohol, Marijuana - Medications Home Medications: Home Medications Medication Instructions Recorded Confirmed Last Taken Type Albuterol Sulfate [Proair 90 mcg IH Q4-6H 30 Days #1 05/13/19 12/25/19 Unknown Rx Respiclick] aer.pow.ba Colchicine 0.6 mg PO BID #60 capsule 05/13/19 12/25/19 Unknown Rx Fluticasone [Flonase] 1 spray INNOSTRIL DAILY 30 Days #1 05/13/19 12/25/19 Unknown Rx bottle Tamsulosin [Flomax] 0.4 mg PO DAILY #30 capsule 05/13/19 12/25/19 Unknown Rx allopurinoL [Zyloprim] 100 mg PO QDAY #30 tablet 05/13/19 12/25/19 2 Days Ago Rx ~11/14/19 guaiFENesin ER [Mucinex ER] 600 mg PO BID #60 tablet 05/13/19 12/25/19 Unknown Rx Bumetanide [Bumex 1 mg tab] 1 mg PO BID #60 tablet 10/22/19 12/25/19 2 Days Ago Rx ~11/14/19 Indomethacin [Indocin] 50 mg PO Q12HR #60 capsule 10/22/19 12/25/19 Unknown Rx Albuterol Sulfate [Proair 90 mcg IH Q4HR #1 aer.pow.ba 11/09/19 12/25/19 Unknown Rx Respiclick] Benzonatate [Tessalon Perles] 100 mg PO Q8HR #30 capsule 11/09/19 12/25/19 Unknown Rx methylPREDNISolone [Medrol 4MG 4 mg PO QDAY #1 tab.ds.pk 11/09/19 12/25/19 Unknown Rx DOSEPAK (21 tabs)] amLODIPine 1 tab PO DAILY 12/26/19 12/26/19 Unknown History dilTIAZem [CarDIZEM] 30 mg PO Q6HR 12/26/19 12/26/19 Unknown History oxyCODONE [roxiCODONE] 15 mg PO Q6HR PRN 12/26/19 12/26/19 Unknown History Mirtazapine [Remeron 15mg TAB] 15 mg PO QHS #30 tablet 12/31/19 Unknown Rx QUEtiapine [SEROquel] 100 mg PO QHS #30 tablet 12/31/19 Unknown Rx Sertraline [Zoloft] 25 mg PO QDAY #30 tablet 12/31/19 Unknown Rx risperiDONE [RisperDAL] 0.5 mg PO BID #120 tablet 12/31/19 Unknown Rx traZODone [Desyrel] 50 mg PO QHS #30 tablet 12/31/19 Unknown Rx ED Physical Exam - General Limitations: No Limitations General appearance: alert, other (Uncooperative;) - Head Head exam: Present: atraumatic, normocephalic - Eye Eye exam: Present: normal appearance - ENT ENT exam: Present: mucous membranes moist - Neck Neck exam: Present: normal inspection - Respiratory Respiratory exam: Present: normal lung sounds bilaterally. Absent: respiratory distress - Cardiovascular Cardiovascular Exam: Present: regular rate, normal rhythm. Absent: systolic murmur, diastolic murmur, rubs, gallop - GI/Abdominal GI/Abdominal exam: Present: soft, normal bowel sounds - Rectal Rectal exam: Present: deferred - Extremities Exam Extremities exam: Present: normal inspection - Back Exam Back exam: Present: normal inspection - Neurological Exam Neurological exam: Present: alert, oriented X3 - Psychiatric Psychiatric exam: Present: agitated, suicidal ideation. Absent: homicidal ideation - Skin Skin exam: Present: warm, dry, intact, normal color. Absent: rash ED Course Vital Signs 01/30/20 00:08 Temperature 97.9 F Pulse Rate 94 H Respiratory 20 Rate Blood Pressure 136/88 O2 Sat by Pulse 96 Oximetry ED Medical Decision Making - Lab Data Result diagrams: 01/30/20 00:36 01/30/20 00:36 - Medical Decision Making Patient is medically clear. Low suspicion for OxyContin overdose as this per the patient has been more than 12 hours since this occurred. Patient has a normal Tylenol normal salicylate level but has an elevated alcohol level. Patient placed on a ED hold and will be evaluated by behavioral health in the a.m. - Differential Diagnosis Electrode abnormality; anemia; dehydration; Critical care attestation.: If time is entered above; I have spent that time in minutes in the direct care of this critically ill patient, excluding procedure time. ED Disposition Clinical Impression: Suicidal ideation, Alcohol abuse Is pt being admited?: No Condition: Stable Referrals: PRIMARY CARE,MD [Primary Care Provider] - 3-5 Days
[2020-01-30] MEDS ORDERED: LORazepam 2 MG/ML VIAL IM STA (02:31)
[2020-01-30] MEDS ORDERED: ZIPRASIDONE MESYLATE 20 MG VIAL IM ONE ×2 (02:31→02:34)
[2020-01-30] MEDS ORDERED: LORazepam 2 MG/ML VIAL ONE (02:33)
[2020-01-30 04:08] LABS: Bilirubin,Urine NEG (Negative); Blood,Urine SM (Negative); Color,Urine Yellow (Yellow); Protein,Urine <15 mg/dL mg/dL (Negative); Urobilinogen,Urine < 2.0 mg/dL (<2.0)
[2020-01-30 04:12] LABS: Amphetamine Screen,Urine PRESUMPTIVE NEGATIVE; Benzodiazepines Screen,Urine PRESUMPTIVE NEGATIVE; Cannabinoid Screen,Urine PRESUMPTIVE NEGATIVE; Cocaine Screen,Urine PRESUMPTIVE NEGATIVE; Methadone Screen,Urine PRESUMPTIVE NEGATIVE; Opiate Screen,Urine PRESUMPTIVE NEGATIVE
--- NOTE | 2020-01-30 10:48 | Consultation ---
History of Present Illness - Reason for Consult Consult date: 01/30/20 Reason for consult: SI - Chief Complaint Chief complaint: hearing voices - History of Present Psychiatric Illness The patient's medical record was reviewed and the patient's chart was discussed with the nursing staff. The nurse caring for the patient says the patient has been sleeping all morning. She says he was given geodon and ativan for aggressiveness and refusing to share a room with anyone. Kash Luque is a 54y/o male who came in for suicidal ideation, stating he took all of his oxycontin, according to the medical record. [facility] is [facility] down somnolent. He was unable to engage in interview. The patient has his linen covering his head. He arouses only with vigorous tactile stimuli. When asking the patient why did he come to the hospital, he replied, "hearing voices for two days." He then drifts back asleep. I aroused the patient again, and asked if he could allow me to interview him, he replied, "what time is it," before drifting back off. PAST PSYCHIATRIC HISTORY Unable to assess SOCIAL HISTORY Unable to assess due to patient factors ROS Unable to asses due to somnolence MENTAL STATUS Unable to assess due to somnolence ASSESSMENT: Schizoaffective Disorder RECOMMENDATIONS Risperidone 1mg po BID Zoloft 50mg po daily Trazodone 50mg po qhs Geodon 20mg IM q6h prn agitation MEDICATIONS: Continue home medications as already prescribed Risks, benefits and alternatives of medications discussed with the patient, questions answered and consent obtained from patient. PSYCHOTHERAPY: Supportive psychotherapy provided MEDICAL: Per primary team DELIRIUM PRECAUTIONS: Please re-orient patient frequently, keep lights on during the day, and minimize benzodiazepines and opiates as these medications could worsen patient's confusion. BUSINESS DEVELOPMENT COORDINATOR: Defer to primary DISPOSITION: TBD Will continue to follow. Please call with any questions or concerns. Thank you for this consult. Medications and Allergies Allergies Allergy/AdvReac Type Severity Reaction Status Date / Time acetaminophen [From Tylenol] Allergy Rash Verified 12/25/19 09:46 aspirin Allergy Unknown Verified 12/25/19 09:46 furosemide [From Lasix] Allergy Rash Verified 12/25/19 09:46 ibuprofen [From Motrin] Allergy Rash Verified 12/25/19 09:46 Penicillins Allergy Rash Verified 02/11/20 09:46 Home Medications Medication Instructions Recorded Confirmed Last Taken Type Albuterol Sulfate [Proair 90 mcg IH Q4-6H 30 Days #1 05/13/19 01/30/20 Unknown Rx Respiclick] aer.pow.ba Colchicine 0.6 mg PO BID #60 capsule 05/13/19 01/30/20 Unknown Rx Fluticasone [Flonase] 1 spray INNOSTRIL DAILY 30 Days #1 05/13/19 01/30/20 Unknown Rx bottle Tamsulosin [Flomax] 0.4 mg PO DAILY #30 capsule 05/13/19 01/30/20 Unknown Rx allopurinoL [Zyloprim] 100 mg PO QDAY #30 tablet 05/13/19 01/30/20 2 Days Ago Rx ~11/14/19 guaiFENesin ER [Mucinex ER] 600 mg PO BID #60 tablet 05/13/19 01/30/20 Unknown Rx Bumetanide [Bumex 1 mg tab] 1 mg PO BID #60 tablet 10/22/19 01/30/20 2 Days Ago Rx ~11/14/19 Indomethacin [Indocin] 50 mg PO Q12HR #60 capsule 10/22/19 01/30/20 Unknown Rx Albuterol Sulfate [Proair 90 mcg IH Q4HR #1 aer.pow.ba 11/09/19 01/30/20 Unknown Rx Respiclick] Benzonatate [Tessalon Perles] 100 mg PO Q8HR #30 capsule 11/09/19 01/30/20 Unknown Rx methylPREDNISolone [Medrol 4MG 4 mg PO QDAY #1 tab.ds.pk 11/09/19 01/30/20 Unknown Rx DOSEPAK (21 tabs)] amLODIPine 1 tab PO DAILY 12/26/19 01/30/20 Unknown History dilTIAZem [CarDIZEM] 30 mg PO Q6HR 12/26/19 01/30/20 Unknown History oxyCODONE [roxiCODONE] 15 mg PO Q6HR PRN 12/26/19 01/30/20 Unknown History Mirtazapine [Remeron 15mg TAB] 15 mg PO QHS #30 tablet 12/31/19 01/30/20 Unknown Rx QUEtiapine [SEROquel] 100 mg PO QHS #30 tablet 12/31/19 01/30/20 Unknown Rx Sertraline [Zoloft] 25 mg PO QDAY #30 tablet 12/31/19 01/30/20 Unknown Rx risperiDONE [RisperDAL] 0.5 mg PO BID #120 tablet 12/31/19 01/30/20 Unknown Rx traZODone [Desyrel] 50 mg PO QHS #30 tablet 12/31/19 01/30/20 Unknown Rx Mental Status Exam - Vital signs Last Vital Signs Temp 98.0 F 01/30/20 07:44 Pulse 90 01/30/20 07:44 Resp 20 01/30/20 09:30 BP 146/102 01/30/20 07:44 Pulse Ox 96 01/30/20 09:30 Results Result Diagrams: 01/30/20 00:36 01/30/20 00:36 Abnormal lab results 01/30/20 01/30/20 01/30/20 Range/Units 00:36 00:36 00:36 WBC (4.5-11.0) K/mm3 RDW (13.2-15.2) % Lymph % (Auto) (13.4-35.0) % [place] % (Auto) (0.0-7.3) % Eos % (Auto) (0.0-4.3) % Seg Neutrophils # (1.8-7.7) K/mm3 Potassium 3.4 L (3.6-5.0) mmol/L BUN 8 L (9-20) mg/dL Creatinine 0.7 L (0.8-1.5) mg/dL Glucose 108 H (75-100) mg/dL Salicylates < 0.3 L (2.8-20.0) mg/dL Acetaminophen < 5.0 L (10.0-30.0) ug/mL Plasma/Serum Alcohol (0-0.07) % 01/30/20 01/30/20 Range/Units 00:36 00:36 WBC 4.2 L (4.5-11.0) K/mm3 RDW 15.8 H (13.2-15.2) % Lymph % (Auto) 41.8 H (13.4-35.0) % [place] % (Auto) 9.7 H (0.0-7.3) % Eos % (Auto) 5.7 H (0.0-4.3) % Seg Neutrophils # 1.7 L (1.8-7.7) K/mm3 Potassium (3.6-5.0) mmol/L BUN (9-20) mg/dL Creatinine (0.8-1.5) mg/dL Glucose (75-100) mg/dL Salicylates (2.8-20.0) mg/dL Acetaminophen (10.0-30.0) ug/mL Plasma/Serum Alcohol 0.10 H (0-0.07) % All other labs normal.
[2020-01-30] MEDS ORDERED: ZIPRASIDONE MESYLATE 20 MG VIAL IM PRN (11:11)
[2020-01-30] MEDS: risperiDONE 1 MG TAB PO SCH ×2 (11:45→22:15)
[2020-01-30] MEDS: SERTRALINE 50 MG TAB PO SCH (11:46)
[2020-01-30] MEDS: dilTIAZem 30 MG TAB PO SCH (17:37)
[2020-01-30] MEDS: amLODIPine 5 MG TAB PO SCH (17:39)
[2020-01-30] MEDS ORDERED: traZODone 50 MG TAB PO SCH (22:00)
[2020-01-30] MEDS: BUMETANIDE 1 MG TAB PO SCH (22:17)
[2020-01-30] MEDS ORDERED: MIRTAZAPINE 30 MG TAB PO ONE (23:07)
[2020-01-30] MEDS ORDERED: QUEtiapine 100 MG TAB PO ONE (23:07)
[2020-01-30] MEDS ORDERED: traMADol 50 MG TAB PO ONE (23:07)
[2020-01-31] MEDS: dilTIAZem 30 MG TAB PO SCH ×3 (00:32→11:59)
[2020-01-31] MEDS: BUMETANIDE 1 MG TAB PO SCH (11:00)
[2020-01-31] MEDS: amLODIPine 5 MG TAB PO SCH (11:01)
[2020-01-31] MEDS: SERTRALINE 50 MG TAB PO SCH (11:01)
--- NOTE | 2020-01-31 11:24 | Progress Note ---
Subjective - Reason for Consult Consult date: 01/31/20 Reason for consult: SI - Chief Complaint Chief complaint: During my interview this morning with the patient this morning, he was lying down. Awake. He was a/o x 3. He was calm and cooperative. The patient verbalizes being suicidal for about "two to three days." He says "my mood is not good." He says about "three or four months ago he overdose and went to [facility]." The patient then says, "I thought they were going to help me but they didn't." He also complains of seeing "images of a man going across the wall." And "feeling like someone is behind me." He says he "hears voices telling me I'm worthless, hopeless, kill yourself." The patient says, "it's hard for me not to believe them." He says, "I've been off my meds and I get like this when I'm off them." He says, "I'm on about fourteen pills. I have to get back functional." The patient also says to me, "I think my wrists might be broke." He raises both of his arms up for me to look at them. ROS: Constitutional: Negative for weight loss ENT: Negative for stridor Respiratory: Negative for cough or hemoptysis All other systems reviewed and are negative MENTAL STATUS General Appearance: Dressed appropriately Behavior: Cooperative, calm, fair eye contact Affect: Congruent Mood: "not good" Speech: Normal tone and pace Thought Process: Goal-directed Thought Content Suicidal Ideation: Yes Homicidal Ideation: Denies Hallucinations: A/V Delusions: None elicited Insight/Judgement: Limited Memory/Cognition: Limited ASSESSMENT: Schizoaffective Disorder RECOMMENDATIONS Increased Risperidone 2mg po BID to decrease psychosis and improve mood MEDICATIONS: Continue home medications as already prescribed Risks, benefits and alternatives of medications discussed with the patient, questions answered and consent obtained from patient. PSYCHOTHERAPY: Supportive psychotherapy provided MEDICAL: Per primary team DELIRIUM PRECAUTIONS: Please re-orient patient frequently, keep lights on during the day, and minimize benzodiazepines and opiates as these medications could worsen patient's confusion. 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 He may transfer to an acute inpatient facility once medically cleared. Will continue to follow until the patient is transferred or his condition improves. The treatment plan was discussed with Dr. Amaya. Please call with any questions or concerns. Mental Status Exam - Vital signs Last Vital Signs Temp 98.0 F 01/31/20 07:00 Pulse 118 H 01/31/20 07:00 Resp 20 01/31/20 07:00 BP 117/78 01/31/20 07:00 Pulse Ox 97 01/31/20 07:00
[2020-01-31] MEDS ORDERED: risperiDONE 1 MG TAB PO SCH (11:46)
[2020-01-31] MEDS: risperiDONE 1 MG TAB PO SCH (12:02)
[2020-01-31 15:26] VITALS: BP 116/78
== END 2020-01-31 18:43 ==
LOC: ED 23:52
DX: R45.851 Suicidal ideations (principal); F10.10 Alcohol abuse, uncomplicated; I11.0 Hypertensive heart disease with heart failure; I50.9 Heart failure, unspecified; M10.9 Gout, unspecified; J44.9 Chronic obstructive pulmonary disease, unspecified; F12.90 Cannabis use, unspecified, uncomplicated; F31.9 Bipolar disorder, unspecified; Z88.0 Allergy status to penicillin; Z88.6 Allergy status to analgesic agent; Z88.8 Allergy status to other drugs, medicaments and biological substances; Z86.69 Personal history of other diseases of the nervous system and sense organs; Z98.890 Other specified postprocedural states; Z79.899 Other long term (current) drug therapy
CPT/HCPCS: 36415; 80048; 80307; 81001; 85025; 96372; 99285; J2060; J3486; 80320; G0480

== ENCOUNTER 2020-09-05 18:39 | Emergency (ER) | payer MEDICAID ==
[2020-09-05 19:42] LABS: Basophils # (Auto) 0.1 K/mm3 (0.0-0.1); Basophils % (Auto) 0.8 % (0.0-1.8); Eosinophils # (Auto) 0.1 K/mm3 (0.0-0.4); Eosinophils % (Auto) 1.2 % (0.0-4.3); Hematocrit 43.2 % (35.5-45.6); Hemoglobin 14.5 gm/dl (11.8-15.2); Lymphocytes # (Auto) 1.9 K/mm3 (1.2-5.4); Lymphocytes % (Auto) 26.5 % (13.4-35.0); Mean Corpuscular HGB Conc 34 % (32-34); Mean Corpuscular Volume 95 fl (84-94); Monocytes # (Auto) 0.8 K/mm3 (0.0-0.8); Monocytes % (Auto) 10.6 % (0.0-7.3); Platelet Count 231 K/mm3 (140-440); Red Blood Count 4.57 M/mm3 (3.65-5.03); Red Cell Distribution Width 17.2 % (13.2-15.2)
[2020-09-05 20:02] LABS: BUN/Creatinine Ratio 15; Blood Urea Nitrogen 17 mg/dL (9-20); Calcium 8.8 mg/dL (8.4-10.2); Hemolysis Index 11
[2020-09-05 21:30] LABS: Amphetamine Screen,Urine PRESUMPTIVE NEGATIVE; Benzodiazepines Screen,Urine PRESUMPTIVE NEGATIVE; Cannabinoid Screen,Urine PRESUMPTIVE POSITIVE; Cocaine Screen,Urine PRESUMPTIVE NEGATIVE; Methadone Screen,Urine PRESUMPTIVE NEGATIVE; Opiate Screen,Urine PRESUMPTIVE NEGATIVE
[2020-09-05 21:31] LABS: Bacteria,Urine 1+ /HPF (Negative); Bilirubin,Urine NEG (Negative); Blood,Urine SM (Negative); Color,Urine Yellow (Yellow); Mucus,Urine FEW /HPF; Protein,Urine <15 mg/dL mg/dL (Negative); RBC,Urine < 1.0 /HPF (0.0-6.0); Urobilinogen,Urine < 2.0 mg/dL (<2.0); WBC,Urine < 1.0 /HPF (0.0-6.0)
[2020-09-05] MEDS ORDERED: fentaNYL 100 MCG/2 ML INJ IM ONE (23:08)
[2020-09-05] MEDS ORDERED: ONDANSETRON 4 MG/2 ML INJ IM ONE (23:08)
--- NOTE | 2020-09-05 23:13 | Emergency Department Report ---
HPI - General Chief Complaint: Psych Time Seen by Provider: 09/05/20 22:45 - HPI HPI: Room 12 The patient is a 55-year-old male present with a chief complaint of suicidal ideation. Patient has a history of schizophrenia and states he has been compliant with his medication but does not feel as though they are working. The patient states for the past 2 weeks he has had suicidal ideation with a plan to overdose on pills or take poison. The patient states she attempted to overdose 2 weeks ago on Seroquel. Patient states for several months he has had auditory and visual hallucinations. Patient states his auditory hallucinations include voices telling him they are going to kill him. Patient states his visual hallucinations include seeing images on the wall. The patient also admits to right flank pain and coughing for the past 2 weeks. Patient states the pain increases with movement. ED Past Medical Hx - Past Medical History Previous Medical History?: Yes Hx Hypertension: Yes Hx Congestive Heart Failure: Yes Hx Seizures: Yes Hx Psychiatric Treatment: Yes (Schizophrenia) Hx Asthma: Yes Additional medical history: BPH - Surgical History Past Surgical History?: Yes Additional Surgical History: Right forearm tendon repair, right lower extremity tendon repair - Family History Family history: no significant - Social History Smoking Status: Former Smoker Substance Use Type: Alcohol (Frequently) - Medications Home Medications: Home Medications Medication Instructions Recorded Confirmed Last Taken Type Colchicine 0.6 mg PO BID #60 capsule 05/13/19 09/06/20 Unknown Rx Tamsulosin [Flomax] 0.4 mg PO DAILY #30 capsule 05/13/19 09/06/20 Unknown Rx allopurinoL [Zyloprim] 100 mg PO QDAY #30 tablet 05/13/19 09/06/20 2 Days Ago Rx ~11/14/19 Indomethacin [Indocin] 50 mg PO Q12HR #60 capsule 10/22/19 09/06/20 Unknown Rx Albuterol Sulfate [Proair 90 mcg IH Q4HR #1 aer.pow.ba 11/09/19 09/06/20 Unknown Rx Respiclick] oxyCODONE [roxiCODONE] 15 mg PO Q6HR PRN 12/26/19 09/06/20 Unknown History Mirtazapine [Remeron 15mg TAB] 15 mg PO QHS #30 tablet 12/31/19 09/06/20 Unknown Rx QUEtiapine [SEROquel] 100 mg PO QHS #30 tablet 12/31/19 09/06/20 Unknown Rx Sertraline [Zoloft] 25 mg PO QDAY #30 tablet 12/31/19 09/06/20 Unknown Rx traZODone [Desyrel] 50 mg PO QHS #30 tablet 12/31/19 09/06/20 Unknown Rx Amlodipine Besylate [Norvasc] 10 mg PO QDAY 09/05/20 09/06/20 Unknown History Mirtazapine [Remeron 15mg TAB] 15 mg PO QHS 09/05/20 09/06/20 Unknown History Tamsulosin [Flomax] 0.4 mg PO QDAY 09/05/20 09/06/20 Unknown History busPIRone [Buspar] 10 mg PO BID 09/05/20 09/06/20 Unknown History hydroCHLOROthiazide [Hctz] 25 mg PO QDAY 09/05/20 09/06/20 Unknown History risperiDONE [RisperDAL] 1 mg PO BID 09/06/20 09/06/20 Unknown History ED Review of Systems ROS: Stated complaint: HEARING VOICES Other details as noted in HPI Constitutional: no symptoms reported Respiratory: no symptoms reported Endocrine: no symptoms reported Psychiatric: auditory hallucinations, visual hallucinations, suicidal thoughts Physical Exam - Physical Exam Vital Signs: Vital Signs 09/05/20 19:20 Temperature 97.9 F Pulse Rate 95 H Respiratory 16 Rate Blood Pressure 141/93 O2 Sat by Pulse 94 Oximetry Physical Exam: GENERAL: The patient is well-developed well-nourished male lying on stretcher not appearing to be in acute distress. [] HEENT: Normocephalic. Atraumatic. Extraocular motions are intact. Patient has moist mucous membranes. NECK: Supple. Trachea midline CHEST/LUNGS: Clear to auscultation. There is no respiratory distress noted. HEART/CARDIOVASCULAR: Regular. There is no tachycardia. There is no gallop rub or murmur. ABDOMEN: Abdomen is soft, nontender. Patient has normal bowel sounds. There is no abdominal distention. SKIN: There is no rash. There is no edema. There is no diaphoresis. NEURO: The patient is awake, alert, and oriented. The patient is cooperative. The patient has no focal neurologic deficits. The patient has normal speech MUSCULOSKELETAL: There is right flank pain. There is no evidence of acute injury. ED Course Vital Signs 09/05/20 19:20 Temperature 97.9 F Pulse Rate 95 H Respiratory 16 Rate Blood Pressure 141/93 O2 Sat by Pulse 94 Oximetry ED Medical Decision Making - Lab Data Result diagrams: 09/05/20 19:28 09/05/20 19:28 Laboratory Tests 09/05/20 09/05/20 09/05/20 19:22 19:22 19:28 WBC RBC Hgb Hct MCV MCH MCHC RDW Plt Count Lymph % (Auto) [place] % (Auto) Eos % (Auto) Baso % (Auto) Lymph # (Auto) [place] # (Auto) Eos # (Auto) Baso # (Auto) Seg Neutrophils % Seg Neutrophils # Sodium Potassium Chloride Carbon Dioxide Anion Gap BUN Creatinine Estimated GFR BUN/Creatinine Ratio Glucose Calcium Urine Color Yellow Urine Turbidity Clear Urine pH 5.0 Ur Specific [place] 1.025 Urine Protein <15 mg/dl Urine Glucose (UA) Neg Urine Ketones Neg Urine Blood Sm Urine Nitrite Neg Urine Bilirubin Neg Urine Urobilinogen < 2.0 Ur Leukocyte Esterase Neg Urine WBC (Auto) < 1.0 Urine RBC (Auto) < 1.0 U Epithel Cells (Auto) < 1.0 Urine Bacteria (Auto) 1+ Uric Acid Crystals Few Urine Mucus Few Salicylates 1.9 L Urine Opiates Screen Presumptive negative Urine Methadone Screen Presumptive negative Acetaminophen Ur Barbiturates Screen Presumptive negative Ur Phencyclidine Scrn Presumptive negative Ur Amphetamines Screen Presumptive negative U Benzodiazepines Scrn Presumptive negative Urine Cocaine Screen Presumptive negative U Marijuana (THC) Screen Presumptive positive Drugs of Abuse Note Disclamer Plasma/Serum Alcohol 09/05/20 09/05/20 09/05/20 19:28 19:28 19:28 WBC RBC Hgb Hct MCV MCH MCHC RDW Plt Count Lymph % (Auto) [place] % (Auto) Eos % (Auto) Baso % (Auto) Lymph # (Auto) [place] # (Auto) Eos # (Auto) Baso # (Auto) Seg Neutrophils % Seg Neutrophils # Sodium 139 Potassium 3.5 L Chloride 101.0 Carbon Dioxide 24 Anion Gap 18 BUN 17 Creatinine 1.1 Estimated GFR > 60 BUN/Creatinine Ratio 15 Glucose 124 H Calcium 8.8 Urine Color Urine Turbidity Urine pH Ur Specific [place] Urine Protein Urine Glucose (UA) Urine Ketones Urine Blood Urine Nitrite Urine Bilirubin Urine Urobilinogen Ur Leukocyte Esterase Urine WBC (Auto) Urine RBC (Auto) U Epithel Cells (Auto) Urine Bacteria (Auto) Uric Acid Crystals Urine Mucus Salicylates Urine Opiates Screen Urine Methadone Screen Acetaminophen 5.0 L Ur Barbiturates Screen Ur Phencyclidine Scrn Ur Amphetamines Screen U Benzodiazepines Scrn Urine Cocaine Screen U Marijuana (THC) Screen Drugs of Abuse Note Plasma/Serum Alcohol 0.10 H 09/05/20 19:28 WBC 7.3 RBC 4.57 Hgb 14.5 Hct 43.2 MCV 95 H MCH 32 MCHC 34 RDW 17.2 H Plt Count 231 Lymph % (Auto) 26.5 [place] % (Auto) 10.6 H Eos % (Auto) 1.2 Baso % (Auto) 0.8 Lymph # (Auto) 1.9 [place] # (Auto) 0.8 Eos # (Auto) 0.1 Baso # (Auto) 0.1 Seg Neutrophils % 60.9 Seg Neutrophils # 4.5 Sodium Potassium Chloride Carbon Dioxide Anion Gap BUN Creatinine Estimated GFR BUN/Creatinine Ratio Glucose Calcium Urine Color Urine Turbidity Urine pH Ur Specific [place] Urine Protein Urine Glucose (UA) Urine Ketones Urine Blood Urine Nitrite Urine Bilirubin Urine Urobilinogen Ur Leukocyte Esterase Urine WBC (Auto) Urine RBC (Auto) U Epithel Cells (Auto) Urine Bacteria (Auto) Uric Acid Crystals Urine Mucus Salicylates Urine Opiates Screen Urine Methadone Screen Acetaminophen Ur Barbiturates Screen Ur Phencyclidine Scrn Ur Amphetamines Screen U Benzodiazepines Scrn Urine Cocaine Screen U Marijuana (THC) Screen Drugs of Abuse Note Plasma/Serum Alcohol - Radiology Data Radiology results: report reviewed (CT abdomen pelvis), image reviewed (CT abdomen pelvis) [place] [address] Cat Scan Report Signed Patient: DARIUSZ LUQUE MR#: [id number] 8 : 1965 Acct:[id number] Age/Sex: 55 / M ADM Date: 09/05/20 Loc: ED Attending Dr: Ordering Physician: CAMMY IRVING MD Date of Service: 09/05/20 Procedure(s): CT abdomen pelvis wo con Accession Number(s): [id number] cc: CAMMY IRVING MD CT ABDOMEN AND PELVIS WITHOUT CONTRAST INDICATION / CLINICAL INFORMATION: Right flank pain. TECHNIQUE: Axial CT images were obtained through the abdomen and pelvis without IV contrast. All CT scans at this location are performed using CT dose reduction for ALARA by means of automated exposure control. COMPARISON: CT chest dated 10/21/19 FINDINGS: LOWER CHEST: No significant abnormality. LIVER: No significant abnormality. GALLBLADDER: Contracted. No acute abnormality. BILE DUCTS: No significant abnormality. PANCREAS: No significant abnormality. SPLEEN: No significant abnormality. ADRENALS: No significant abnormality. RIGHT KIDNEY / URETER: No significant abnormality. LEFT KIDNEY / URETER: Small simple appe aring cysts. No significant abnormality. STOMACH / SMALL BOWEL: No significant abnormality. COLON: Diverticulosis without acute inflammation. APPENDIX: Retrocecal appendix without inflammation. PERITONEUM: No free fluid. No free air. No fluid collection. LYMPH NODES: No significant adenopathy. AORTA / ARTERIES: No significant abnormality. IVC / VEINS: No significant abnormality. URINARY BLADDER: No significant abnormality. REPRODUCTIVE ORGANS: No significant abnormality. ADDITIONAL FINDINGS: None. SKELETAL SYSTEM: No significant abnormality. IMPRESSION: 1. No inflammatory process or bowel obstruction. 2. No urinary tract stones or hydronephrosis. Signer Name: Scooter Luque MD Signed: 09/06/2020 12:29 AM Workstation Name: [id number] Transcribed By: DT Dictated By: Aakash Luque MD Electronically Authenticated By: Aakash Luque MD Signed Date/Time: 09/06/2028 DD/ TD/TT: - Differential Diagnosis Schizophrenia, renal colic, pyelonephritis, muscle strain Critical care attestation.: If time is entered above; I have spent that time in minutes in the direct care of this critically ill patient, excluding procedure time. ED Disposition Clinical Impression: Suicidal ideation, Schizophrenia, Lumbar strain Disposition: DC/TX-65 PSY HOSP/PSY UNIT Is pt being admited?: No Does the pt Need Aspirin: No Condition: Stable Referrals: PRIMARY MD LIT [Primary Care Provider] - 3-5 Days Time of Disposition: 00:52 (Awaiting acceptance)
[2020-09-06] MEDS ORDERED: HYDROmorphone 1 MG/1 ML INJ IM ONE (00:26)
--- NOTE | 2020-09-06 00:34 | Cat Scan Report ---
CT ABDOMEN AND PELVIS WITHOUT CONTRAST INDICATION / CLINICAL INFORMATION: Right flank pain. TECHNIQUE: Axial CT images were obtained through the abdomen and pelvis without IV contrast. All CT scans at [facility] location are performed using CT dose reduction for ALARA by means of automated exposure control. COMPARISON: CT chest dated 10/21/19 FINDINGS: LOWER CHEST: No significant abnormality. LIVER: No significant abnormality. GALLBLADDER: Contracted. No acute abnormality. BILE DUCTS: No significant abnormality. PANCREAS: No significant abnormality. SPLEEN: No significant abnormality. ADRENALS: No significant abnormality. RIGHT KIDNEY / URETER: No significant abnormality. LEFT KIDNEY / URETER: Small simple appearing cysts. No significant abnormality. STOMACH / SMALL BOWEL: No significant abnormality. COLON: Diverticulosis without acute inflammation. APPENDIX: Retrocecal appendix without inflammation. PERITONEUM: No free fluid. No free air. No fluid collection. LYMPH NODES: No significant adenopathy. AORTA / ARTERIES: No significant abnormality. IVC / VEINS: No significant abnormality. URINARY BLADDER: No significant abnormality. REPRODUCTIVE ORGANS: No significant abnormality. ADDITIONAL FINDINGS: None. SKELETAL SYSTEM: No significant abnormality. IMPRESSION: 1. No inflammatory process or bowel obstruction. 2. No urinary tract stones or hydronephrosis. Signer Name: Scooter Luque MD Signed: 09/06/2020 12:29 AM Workstation Name: [id number]
[2020-09-06] MEDS ORDERED: diphenhydrAMINE 50 MG/ML VIAL IM PRN (00:53)
[2020-09-06] MEDS ORDERED: LORazepam 2 MG/ML VIAL IM PRN (00:53)
[2020-09-06] MEDS ORDERED: HALOPERIDOL LACTATE 5 MG/1 ML INJ IM PRN (00:53)
[2020-09-06] MEDS: CYCLOBENZAPRINE 10 MG TAB PO PRN (07:24)
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
[2020-09-06] MEDS ORDERED: chlordiazePOXIDE 25 MG CAP PO PRN ×2 (11:47)
[2020-09-06] MEDS: SERTRALINE 25 MG TAB PO SCH (13:33)
[2020-09-06] MEDS: risperiDONE 1 MG TAB PO SCH ×2 (13:33→21:47)
[2020-09-06] MEDS: traZODone 50 MG TAB PO SCH (21:47)
[2020-09-07] MEDS: risperiDONE 1 MG TAB PO SCH ×2 (09:50→21:41)
[2020-09-07] MEDS: SERTRALINE 25 MG TAB PO SCH (09:50)
--- NOTE | 2020-09-07 11:40 | Progress Note ---
Subjective - Reason for Consult Consult date: 09/07/20 Reason for consult: SI, ETOH - Chief Complaint Chief complaint: During my interview with the patient, he is lying down asleep. He easily arouses. He seems irritable. The patient states he's "not doing good." He says his "kidney is hurting." The patient then says "it's too much noise in here. I didn't sleep good." Her verbalizes "not wanting to live." He says "people are after me. They are after me." He also says he "sees things flying around and hear people telling me to kill myself." REVIEW OF SYSTEMS Constitutional: Negative for weight loss ENT: Negative for stridor Respiratory: Negative for cough or hemoptysis All other systems reviewed and are negative MENTAL STATUS EXAMINATION General Appearance and Behavior: Age appropriate, wearing appropriate clothes, cooperative Cooperation: Participating Mood: "not good" Affect and affective range: congruent with stated mood Thought Process: Goal directed Thought Content: logical Speech: Normal volume, Regular rate and rhythm, Suicidal Ideation: Yes Homicidal Ideation: Denies HI Hallucinations: A/V Delusions: Paranoid Impulse Control: Impaired Insight and Judgment: Limited insight and judgment Orientation: Alert, oriented, Assessment and Plan Paranoid Schizophrenia Alcohol Dependence w/ Withdrawal Treatment Plan MEDICATIONS Start Depakote DR 125mg po BID Risks, benefits and alternatives of medications discussed with the patient, questions answered and consent obtained from patient. PSYCHOTHERAPY: Supportive psychotherapy provided MEDICAL: Per primary team DELIRIUM PRECAUTIONS: Please re-orient patient frequently, keep lights on during the day, and minimize benzodiazepines and opiates as these medications could worsen patient's confusion. 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 Please contact with any questions and/or concerns. Mental Status Exam - Vital signs Last Vital Signs Temp 97.9 F 09/07/20 07:45 Pulse 93 H 09/07/20 07:45 Resp 16 09/07/20 07:45 BP 102/77 09/07/20 07:45 Pulse Ox 94 09/07/20 07:45
[2020-09-07] MEDS: DIVALPROEX DR 125 MG TAB PO SCH ×2 (13:47→21:42)
[2020-09-07] MEDS: traZODone 50 MG TAB PO SCH (21:43)
[2020-09-08] MEDS: DIVALPROEX DR 125 MG TAB PO SCH (10:30)
[2020-09-08] MEDS: SERTRALINE 25 MG TAB PO SCH (10:30)
[2020-09-08] MEDS: risperiDONE 1 MG TAB PO SCH ×3 (10:30→22:47)
--- NOTE | 2020-09-08 10:52 | Progress Note ---
Subjective - Reason for Consult Consult date: 09/08/20 Reason for consult: SI, CARLOS - Chief Complaint Chief complaint: During my interview with the patient, he is lying down asleep. He easily arouses. He states "I'm not doing good. I'm paranoid and they got me in the room with all these people." The patient says "I keep seeing stuff flying all around me. It's flying everywhere." The patient also verbalizes being "suicidal." He says "voices are telling me to just do it." REVIEW OF SYSTEMS Constitutional: Negative for weight loss ENT: Negative for stridor Respiratory: Negative for cough or hemoptysis All other systems reviewed and are negative MENTAL STATUS EXAMINATION General Appearance and Behavior: Age appropriate, wearing appropriate clothes, cooperative Cooperation: Participating Mood: "not good" Affect and affective range: congruent with stated mood Thought Process: Goal directed Thought Content: logical Speech: Normal volume, Regular rate and rhythm, Suicidal Ideation: Yes Homicidal Ideation: Denies HI Hallucinations: A/V Delusions: Paranoid Impulse Control: Impaired Insight and Judgment: Limited insight and judgment Orientation: Alert, oriented, Assessment and Plan Paranoid Schizophrenia Alcohol Dependence w/ Withdrawal Treatment Plan MEDICATIONS Increase Depakote DR 250mg po BID Increase Risperidone 1mg po TID Risks, benefits and alternatives of medications discussed with the patient, questions answered and consent obtained from patient. PSYCHOTHERAPY: Supportive psychotherapy provided MEDICAL: Per primary team DELIRIUM PRECAUTIONS: Please re-orient patient frequently, keep lights on during the day, and minimize benzodiazepines and opiates as these medications could worsen patient's confusion. 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 Please contact with any questions and/or concerns. Mental Status Exam - Vital signs Last Vital Signs Temp 97.6 F 09/08/20 08:44 Pulse 89 09/08/20 08:44 Resp 18 09/08/20 08:44 BP 132/91 09/08/20 08:44 Pulse Ox 97 09/08/20 08:44
[2020-09-08] MEDS ORDERED: ALBUTEROL 2.5 MG/3 ML NEBU IH PRN (11:34)
[2020-09-08] MEDS ORDERED: amLODIPine 10 MG TAB PO SCH (12:00)
[2020-09-08] MEDS ORDERED: NON-FORMULARY EACH (Albuterol Sulfate [Proair Respiclick] 90 MCG) IH SCH (14:00)
[2020-09-08] MEDS: CYCLOBENZAPRINE 10 MG TAB PO PRN (15:49)
[2020-09-08 20:40] VITALS: BP 119/68
[2020-09-08] MEDS ORDERED: COLCHICINE 0.6 MG CAP PO SCH (22:00)
[2020-09-08] MEDS ORDERED: traZODone 50 MG TAB PO SCH (22:00)
[2020-09-08] MEDS ORDERED: MIRTAZAPINE 15 MG TAB PO SCH (22:00)
[2020-09-08] MEDS ORDERED: DIVALPROEX DR 250 MG TAB PO SCH (22:00)
[2020-09-08] MEDS ORDERED: INDOMETHACIN 25 MG CAP PO SCH (22:00)
[2020-09-08] MEDS ORDERED: risperiDONE 0.25 MG TAB PO SCH (22:00)
[2020-09-08] MEDS ORDERED: busPIRone 10 MG TAB PO SCH (22:00)
[2020-09-08] MEDS ORDERED: QUEtiapine 100 MG TAB PO SCH (22:00)
[2020-09-08] MEDS: traZODone 50 MG TAB PO SCH (22:44)
[2020-09-09] MEDS ORDERED: allopurinoL 100 MG TAB PO SCH (10:00)
[2020-09-09] MEDS ORDERED: hydroCHLOROthiazide 12.5 MG CAP PO SCH (10:00)
[2020-09-09] MEDS ORDERED: TAMSULOSIN 0.4 MG CAP PO SCH (10:00)
--- NOTE | 2020-09-09 19:36 | Progress Note ---
Subjective - Reason for Consult Consult date: 09/09/20 Reason for consult: SI, hallucinating - Chief Complaint Chief complaint: During my interview with the patient, he is lying down asleep. He easily arouses. He is smiling and pleasant. He is calm and cooperative. The patient says he "feels a lot better." He says "I'm not suicidal anymore and I'm not hearing the voices." He says "my back is getting worse laying here." He denies any feelings of endangerment. REVIEW OF SYSTEMS Constitutional: Negative for weight loss ENT: Negative for stridor Respiratory: Negative for cough or hemoptysis All other systems reviewed and are negative MENTAL STATUS EXAMINATION General Appearance and Behavior: Age appropriate, wearing appropriate clothes, cooperative Cooperation: Participating Mood: "a lot better" Affect and affective range: congruent with stated mood Thought Process: Goal directed Thought Content: logical Speech: Normal volume, Regular rate and rhythm, Suicidal Ideation: Denies Homicidal Ideation: Denies Hallucinations: Denies Delusions: None elicited Impulse Control: Intact Insight and Judgment: Limited insight and judgment Orientation: Alert, oriented, Assessment and Plan Paranoid Schizophrenia Alcohol Dependence w/ Withdrawal Treatment Plan d/c [address] 250mg po BID Risperidone 1mg po TID Trazodone 50mg po qhs Zoloft 25mg po daily Buspar 10mg po BID Risks, benefits and alternatives of medications discussed with the patient, questions answered and consent obtained from patient. PSYCHOTHERAPY: Supportive psychotherapy provided MEDICAL: Per primary team DELIRIUM PRECAUTIONS: Please re-orient patient frequently, keep lights on during the day, and minimize benzodiazepines and opiates as these medications could worsen patient's confusion. 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 The patient may discharge once medically clear. He understands that if feelings of endangerment are to return or if SI/HI return he is to seek immediate assistance including but not limited to crisis hotline, ER/911 He is to abstain from all illicit drug use and alcohol He is to follow up with outpatient psych in 7 to 14 days upon discharge. The telesales advisor is to give the patient resources for outpatient, safety plan, cognitive behavior therapy resources and drug and rehabilitation. Will sing off. Thank you for this consult Mental Status Exam - Vital signs Last Vital Signs Temp 98.2 F 09/08/20 20:00 Pulse 87 09/08/20 20:00 Resp 18 09/08/20 20:00 BP 119/68 09/08/20 20:00 Pulse Ox 95 09/08/20 20:00
== END 2020-09-09 17:40 | disposition home or self-care (01) ==
LOC: ED 18:39 → EEVIPCON 18:39 → ED 09-09 17:40
DX: S39.012A Strain of muscle, fascia and tendon of lower back, initial encounter (principal); F20.89 Other schizophrenia; I11.0 Hypertensive heart disease with heart failure; I50.9 Heart failure, unspecified; J45.909 Unspecified asthma, uncomplicated; Z87.891 Personal history of nicotine dependence; Z98.890 Other specified postprocedural states; Z79.899 Other long term (current) drug therapy; Z88.6 Allergy status to analgesic agent; Z88.0 Allergy status to penicillin
CPT/HCPCS: 36415; 74176; 80048; 80307; 81001; 85025; 96372; 99284; J1170; J1630; J2405; J3010; 80320; G0480

== ENCOUNTER 2020-12-28 09:34 | Emergency (ER) | payer MEDICAID ==
--- NOTE | 2020-12-28 09:54 | Emergency Department Report ---
ED Psych HPI - General Chief Complaint: Psych Stated Complaint: DEPRESSION Time Seen by Provider: 12/28/20 09:51 Source: patient Mode of arrival: Ambulatory - History of Present Illness Initial Comments: This is a 55-year-old male with a history of paranoid schizophrenia and several psychiatric related visits to this emergency department. On 09/09/2020 psychiatric/mental health staff did not recommend inpatient disposition when the patient suicidal ideation improved after several days of observation in the ER.: Paranoid Schizophrenia Alcohol Dependence w/ Withdrawal Treatment Plan d/c [address] 250mg po BID Risperidone 1mg po TID Trazodone 50mg po qhs Zoloft 25mg po daily Buspar 10mg po BID Risks, benefits and alternatives of medications discussed with the patient, questions answered and consent obtained from patient. Apparently, the patient has a history of cardiomyopathy, alcohol and cocaine abuse. On my encounter the patient states that he is taking Seroquel, Risperdal, Haldol and trazodone. He states that he gets his psychiatric care from [facility]. He states his last hospitalization was about a year ago. He states that he is "depressed, homicidal and suicidal". He states he is having pain from his gout and would like pain medicine. He also gives a history of CHF and states that he is swelling up. He claims he is compliant with his medication. MD Complaint: suicidal ideation, feels depressed -: days(s), week(s), month(s) Associated Psychiatric Symptoms: depression, suicidal ideation, homicidal idea tion History of same: Yes Quality: constant Improves With: none Worsens With: none Associated Symptoms: other (Swelling hands and leg, joint swelling) Treatments Prior to Arrival: none If Self Harm: admits thoughts of - Related Data Home Medications Medication Instructions Recorded Confirmed Last Taken Amlodipine Besylate [Norvasc] 10 mg PO QDAY 09/05/20 12/28/20 Unknown Mirtazapine [Remeron 15mg TAB] 15 mg PO QHS 09/05/20 12/28/20 Unknown hydroCHLOROthiazide [Hctz] 25 mg PO QDAY 09/05/20 12/28/20 Unknown risperiDONE [RisperDAL] 1 mg PO BID 09/06/20 12/28/20 Unknown amLODIPine 10 mg PO DAILY 12/28/20 12/28/20 Unknown Previous Rx's Medication Instructions Recorded Last Taken Type Tamsulosin [Flomax] 0.4 mg PO DAILY #30 capsule 05/13/19 Unknown Rx allopurinoL [Zyloprim] 100 mg PO QDAY #30 tablet 05/13/19 2 Days Ago Rx ~11/14/19 QUEtiapine [SEROquel] 100 mg PO QHS #30 tablet 12/31/19 Unknown Rx Sertraline [Zoloft] 25 mg PO QDAY #30 tablet 12/31/19 Unknown Rx Allergies Allergy/AdvReac Type Severity Reaction Status Date / Time acetaminophen [From Tylenol] Allergy Rash Verified 12/28/20 10:08 aspirin Allergy Unknown Verified 12/28/20 10:08 furosemide [From Lasix] Allergy Rash Verified 12/28/20 10:08 ibuprofen [From Motrin] Allergy Rash Verified 12/28/20 10:08 Penicillins Allergy Rash Verified 12/28/20 10:08 ED Review of Systems ROS: Stated complaint: DEPRESSION Other details as noted in HPI Constitutional: denies: chills, fever Eyes: eye discharge. denies: eye pain, vision change ENT: denies: ear pain, throat pain Respiratory: SOB with exertion. denies: cough, SOB at rest Cardiovascular: edema. denies: chest pain, palpitations Endocrine: no symptoms reported Gastrointestinal: denies: abdominal pain, nausea, diarrhea Genitourinary: denies: urgency, dysuria Musculoskeletal: joint swelling, arthralgia. denies: back pain Skin: denies: rash, lesions Neurological: denies: headache, weakness, paresthesias Psychiatric: denies: anxiety, depression Hematological/Lymphatic: denies: easy bleeding, easy bruising ED Past Medical Hx - Past Medical History Previous Medical History?: Yes Hx Hypertension: Yes Hx Congestive Heart Failure: Yes Hx Seizures: Yes Hx Psychiatric Treatment: Yes (Schizophrenia) Hx Asthma: Yes Additional medical history: BPH - Surgical History Past Surgical History?: Yes Additional Surgical History: Right forearm tendon repair, right lower extremity tendon repair - Social History Smoking Status: Current Every Day Smoker Substance Use Type: Alcohol, Prescribed - Medications Home Medications: Home Medications Medication Instructions Recorded Confirmed Last Taken Type Tamsulosin [Flomax] 0.4 mg PO DAILY #30 capsule 05/13/19 12/28/20 Unknown Rx allopurinoL [Zyloprim] 100 mg PO QDAY #30 tablet 05/13/19 12/28/20 2 Days Ago Rx ~11/14/19 QUEtiapine [SEROquel] 100 mg PO QHS #30 tablet 12/31/19 12/28/20 Unknown Rx Sertraline [Zoloft] 25 mg PO QDAY #30 tablet 12/31/19 12/28/20 Unknown Rx Amlodipine Besylate [Norvasc] 10 mg PO QDAY 09/05/20 12/28/20 Unknown History Mirtazapine [Remeron 15mg TAB] 15 mg PO QHS 09/05/20 12/28/20 Unknown History hydroCHLOROthiazide [Hctz] 25 mg PO QDAY 09/05/20 12/28/20 Unknown History risperiDONE [RisperDAL] 1 mg PO BID 09/06/20 12/28/20 Unknown History amLODIPine 10 mg PO DAILY 12/28/20 12/28/20 Unknown History ED Physical Exam - General Limitations: No Limitations General appearance: alert, in no apparent distress - Head Head exam: Present: atraumatic, normocephalic - Eye Eye exam: Present: normal appearance. Absent: scleral icterus - ENT ENT exam: Present: mucous membranes moist - Neck Neck exam: Present: normal inspection - Respiratory Respiratory exam: Present: normal lung sounds bilaterally. Absent: respiratory distress - Cardiovascular Cardiovascular Exam: Present: regular rate, normal rhythm. Absent: systolic murmur, diastolic murmur, rubs, gallop - GI/Abdominal GI/Abdominal exam: Present: soft, normal bowel sounds. Absent: distended, tenderness, guarding, rebound - Rectal Rectal exam: Present: deferred - Extremities Exam Extremities exam: Present: other (Joint deformity both hands) - Back Exam Back exam: Present: normal inspection - Neurological Exam Neurological exam: Present: alert, oriented X3 - Psychiatric Psychiatric exam: Present: normal affect, normal mood - Skin Skin exam: Present: warm, dry, intact, normal color. Absent: rash ED Course Vital Signs 12/28/20 12/28/20 12/28/20 09:39 10:03 10:25 Temperature 98.3 F Pulse Rate 94 H 88 Respiratory 20 16 16 Rate Blood Pressure 135/86 Blood Pressure 132/87 [Right] O2 Sat by Pulse 95 98 Oximetry 12/28/20 12/28/20 10:48 10:54 Temperature 98.6 F Pulse Rate 87 Respiratory 16 20 Rate Blood Pressure Blood Pressure 109/67 [Right] O2 Sat by Pulse 98 97 Oximetry ED Medical Decision Making - Lab Data Result diagrams: 12/28/20 09:52 12/28/20 09:52 Laboratory Results - last 24 hr 12/28/20 12/28/20 12/28/20 09:52 10:03 10:03 WBC 3.9 L RBC 4.23 Hgb 13.8 Hct 39.6 MCV 94 MCH 33 H MCHC 35 H RDW 16.3 H Plt Count 198 Lymph % (Auto) 38.9 H [place] % (Auto) 11.4 H Eos % (Auto) 0.5 Baso % (Auto) 0.7 Lymph # (Auto) 1.5 [place] # (Auto) 0.4 Eos # (Auto) 0.0 Baso # (Auto) 0.0 Seg Neutrophils % 48.5 Seg Neutrophils # 1.9 PT INR APTT Urine Color Straw Urine Turbidity Clear Urine pH 6.0 Ur Specific [place] 1.005 Urine Protein <15 mg/dl Urine Glucose (UA) Neg Urine Ketones Neg Urine Blood Sm Urine Nitrite Neg Urine Bilirubin Neg Urine Urobilinogen < 2.0 Ur Leukocyte Esterase Neg Urine WBC (Auto) 1.0 Urine RBC (Auto) 1.0 Urine Opiates Screen Negative Urine Methadone Screen Negative Ur Barbiturates Screen Negative Ur Phencyclidine Scrn Negative Ur Amphetamines Screen Negative U Benzodiazepines Scrn Negative 12/28/20 10:08 WBC RBC Hgb Hct MCV MCH MCHC RDW Plt Count Lymph % (Auto) [place] % (Auto) Eos % (Auto) Baso % (Auto) Lymph # (Auto) [place] # (Auto) Eos # (Auto) Baso # (Auto) Seg Neutrophils % Seg Neutrophils # PT 12.8 INR 0.98 APTT 25.9 Urine Color Urine Turbidity Urine pH Ur Specific [place] Urine Protein Urine Glucose (UA) Urine Ketones Urine Blood Urine Nitrite Urine Bilirubin Urine Urobilinogen Ur Leukocyte Esterase Urine WBC (Auto) Urine RBC (Auto) Urine Opiates Screen Urine Methadone Screen Ur Barbiturates Screen Ur Phencyclidine Scrn Ur Amphetamines Screen U Benzodiazepines Scrn Laboratory Results - last 24 hr 12/28/20 12/28/20 12/28/20 09:52 09:52 09:52 WBC RBC Hgb Hct MCV MCH MCHC RDW Plt Count Lymph % (Auto) [place] % (Auto) Eos % (Auto) Baso % (Auto) Lymph # (Auto) [place] # (Auto) Eos # (Auto) Baso # (Auto) Seg Neutrophils % Seg Neutrophils # PT INR APTT Sodium 137 Potassium 3.2 L Chloride 98.6 Carbon Dioxide 27 Anion Gap 15 BUN 5 L Creatinine 0.9 Estimated GFR > 60 BUN/Creatinine Ratio 6 Glucose 97 Calcium 8.9 Magnesium 1.80 Total Bilirubin 0.30 Direct Bilirubin < 0.2 Indirect Bilirubin 0.1 AST 33 ALT 30 Alkaline Phosphatase 85 NT-Pro-B Natriuret Pep 24.44 Total Protein 7.4 Albumin 4.3 Albumin/Globulin Ratio 1.4 Urine Color Urine Turbidity Urine pH Ur Specific [place] Urine Protein Urine Glucose (UA) Urine Ketones Urine Blood Urine Nitrite Urine Bilirubin Urine Urobilinogen Ur Leukocyte Esterase Urine WBC (Auto) Urine RBC (Auto) Salicylates < 0.3 L Urine Opiates Screen Urine Methadone Screen Acetaminophen 5.0 L Ur Barbiturates Screen Ur Phencyclidine Scrn Ur Amphetamines Screen U Benzodiazepines Scrn 12/28/20 12/28/20 12/28/20 09:52 10:03 10:03 WBC 3.9 L RBC 4.23 Hgb 13.8 Hct 39.6 MCV 94 MCH 33 H MCHC 35 H RDW 16.3 H Plt Count 198 Lymph % (Auto) 38.9 H [place] % (Auto) 11.4 H Eos % (Auto) 0.5 Baso % (Auto) 0.7 Lymph # (Auto) 1.5 [place] # (Auto) 0.4 Eos # (Auto) 0.0 Baso # (Auto) 0.0 Seg Neutrophils % 48.5 Seg Neutrophils # 1.9 PT INR APTT Sodium Potassium Chloride Carbon Dioxide Anion Gap BUN Creatinine Estimated GFR BUN/Creatinine Ratio Glucose Calcium Magnesium Total Bilirubin Direct Bilirubin Indirect Bilirubin AST ALT Alkaline Phosphatase NT-Pro-B Natriuret Pep Total Protein Albumin Albumin/Globulin Ratio Urine Color Straw Urine Turbidity Clear Urine pH 6.0 Ur Specific [place] 1.005 Urine Protein <15 mg/dl Urine Glucose (UA) Neg Urine Ketones Neg Urine Blood Sm Urine Nitrite Neg Urine Bilirubin Neg Urine Urobilinogen < 2.0 Ur Leukocyte Esterase Neg Urine WBC (Auto) 1.0 Urine RBC (Auto) 1.0 Salicylates Urine Opiates Screen Negative Urine Methadone Screen Negative Acetaminophen Ur Barbiturates Screen Negative Ur Phencyclidine Scrn Negative Ur Amphetamines Screen Negative U Benzodiazepines Scrn Negative 12/28/20 10:08 WBC RBC Hgb Hct MCV MCH MCHC RDW Plt Count Lymph % (Auto) [place] % (Auto) Eos % (Auto) Baso % (Auto) Lymph # (Auto) [place] # (Auto) Eos # (Auto) Baso # (Auto) Seg Neutrophils % Seg Neutrophils # PT 12.8 INR 0.98 APTT 25.9 Sodium Potassium Chloride Carbon Dioxide Anion Gap BUN Creatinine Estimated GFR BUN/Creatinine Ratio Glucose Calcium Magnesium Total Bilirubin Direct Bilirubin Indirect Bilirubin AST ALT Alkaline Phosphatase NT-Pro-B Natriuret Pep Total Protein Albumin Albumin/Globulin Ratio Urine Color Urine Turbidity Urine pH Ur Specific [place] Urine Protein Urine Glucose (UA) Urine Ketones Urine Blood Urine Nitrite Urine Bilirubin Urine Urobilinogen Ur Leukocyte Esterase Urine WBC (Auto) Urine RBC (Auto) Salicylates Urine Opiates Screen Urine Methadone Screen Acetaminophen Ur Barbiturates Screen Ur Phencyclidine Scrn Ur Amphetamines Screen U Benzodiazepines Scrn - Radiology Data Radiology results: report reviewed (Radiologist questioned pulmonary opacity versus artifact. I believe this is an artifact on chest x-ray left side), image reviewed Critical care attestation.: If time is entered above; I have spent that time in minutes in the direct care of this critically ill patient, excluding procedure time. ED Disposition Clinical Impression: Homicidal ideation, Suicidal ideation, Hypokalemia, Medical clearance for psychiatric admission Schizophrenia Qualifiers: Schizophrenia type: paranoid schizophrenia Qualified Code(s): F20.0 - Paranoid schizophrenia Cardiomyopathy Qualifiers: Cardiomyopathy type: unspecified Qualified Code(s): I42.9 - Cardiomyopathy, unspecified Disposition: [id number]/TX-65 PSY HOSP/PSY UNIT Is pt being admited?: No Does the pt Need Aspirin: No Condition: Stable Time of Disposition: 11:23
--- NOTE | 2020-12-28 10:31 | XRay Report ---
CHEST 1 VIEW 12/28/2020 10:21 AM INDICATION / CLINICAL INFORMATION: hypertension. COMPARISON: 11/09/2019 FINDINGS: SUPPORT DEVICES: None. HEART / MEDIASTINUM: Stable. LUNGS / PLEURA: Focal peripheral hazy opacification in the left midlung could represent artifact from overlying soft tissue, however developing airspace disease is not excluded. No pneumothorax. ADDITIONAL FINDINGS: No significant additional findings. IMPRESSION: 1. Possible developing airspace disease in the left midlung. Recommend clinical correlation and simon nued follow-up, as warranted. Signer Name: Jose Petersen MD Signed: 12/28/2020 10:26 AM Workstation Name: [id number]
[2020-12-28 10:33] LABS: Basophils % (Auto) 0.7 % (0.0-1.8); Eosinophils % (Auto) 0.5 % (0.0-4.3); Hematocrit 39.6 % (35.5-45.6); Hemoglobin 13.8 gm/dl (11.8-15.2); Lymphocytes # (Auto) 1.5 K/mm3 (1.2-5.4); Lymphocytes % (Auto) 38.9 % (13.4-35.0); Mean Corpuscular HGB Conc 35 % (32-34); Mean Corpuscular Volume 94 fl (84-94); Monocytes # (Auto) 0.4 K/mm3 (0.0-0.8); Monocytes % (Auto) 11.4 % (0.0-7.3); Platelet Count 198 K/mm3 (140-440); Red Blood Count 4.23 M/mm3 (3.65-5.03); Red Cell Distribution Width 16.3 % (13.2-15.2)
[2020-12-28] MEDS ORDERED: MAGNESIUM HYDROXIDE (MOM) ORAL LIQD UDC PO PRN (10:34)
[2020-12-28] MEDS ORDERED: ALUM-MAG HYDROXIDE-SIMETHICONE 200-200-20MG/5ML ORAL LIQD 30 ML PO PRN (10:34)
[2020-12-28 10:42] LABS: Bilirubin,Urine NEG (Negative); Blood,Urine SM (Negative); Color,Urine Straw (Yellow); Protein,Urine <15 mg/dL mg/dL (Negative); Urobilinogen,Urine < 2.0 mg/dL (<2.0)
[2020-12-28 10:43] LABS: INR 0.98 (0.87-1.13)
[2020-12-28 10:44] LABS: Partial Thromboplastin Time 25.9 Sec. (24.2-36.6)
[2020-12-28 10:48] LABS: Amphetamine Screen,Urine Negative; Benzodiazepines Screen,Urine Negative; Methadone Screen,Urine Negative; Opiate Screen,Urine Negative
[2020-12-28 10:57] LABS: Alanine Aminotransferase 30 units/L (7-56); Albumin 4.3 g/dL (3.9-5); BUN/Creatinine Ratio 6; Blood Urea Nitrogen 5 mg/dL (9-20); Calcium 8.9 mg/dL (8.4-10.2); Hemolysis Index 4
[2020-12-28 11:09] LABS: Bilirubin,Direct < 0.2 mg/dL (0-0.2)
--- NOTE | 2020-12-28 11:18 | Consultation ---
History of Present Illness - Reason for Consult Consult date: 12/28/20 Reason for consult: SI - History of Present Psychiatric Illness Kash Luque is a 55y/o male patient who is known to me. During my encounter with the patient he is mostly complaining of physical symptoms of his hands, body and feet being swollen. The patient says "I have CHF and they got me on too much medicine." The patient says "I'm concerned about my heart." He then shows me his hands, they do appear somewhat swollen. The patient says "I feel terrible and swollen." The patient is calm and cooperative. He verbalizes using cocaine. Advised the patient that cocaine would make his heart worse. He nodded his head in agreement. When asking the patient was he here because of his mental health or physical complaints, he became a little irritable and said "yes, both of them, my mind too." He does verbalized being depressed, and states he's been feeling like this for a long time. The patient says he's SI/HI, and "I want to break stuff and do stuff." The patient says "last time I didn't get admitted but I really need it this time." Her verbalizes hallucinations telling him to kill himself. PAST PSYCHIATRIC HISTORY Diagnoses: Paranoid schizophrenia Suicide attempts or Self-harm behavior: Yes Prior psychiatric hospitalizations: Yes Substance Abuse history: Alcohol Previous psychiatric medications tried: Risperidone, haldol Outpatient treatment: Yes PAST MEDICAL HISTORY: none reported Family Psychiatric History: None reported or documented SOCIAL HISTORY Marital Status: Single Living Arrangements: "[place] myself" Employment Status: Unemployed Access to guns/weapons: none reported Education: 11th grade History of Abuse: none reported Legal History: REVIEW OF SYSTEMS Constitutional: Negative for weight loss ENT: Negative for stridor Respiratory: Negative for cough or hemoptysis All other systems reviewed and are negative MENTAL STATUS EXAMINATION General Appearance and Behavior: Age appropriate, wearing appropriate clothes, cooperative Cooperation: Participating Mood: "depressed" Affect and affective range: congruent with stated mood Thought Process: Goal directed Thought Content: logical Speech: Normal volume, Regular rate and rhythm, Suicidal Ideation: no, yes, I always feel like that Homicidal Ideation: Denies HI Hallucinations: Denies Delusions: None elicited Impulse Control: Impaired Insight and Judgment: Limited insight and judgment Orientation: Alert, oriented, Assessment and Plan Schizophrenia Cocaine Dependence Treatment Plan MEDICATIONS Risperidone 1mg po BID Depakote DR 125mg po BID Mirtazepine 15mg po qhs Risks, benefits and alternatives of medications discussed with the patient, questions answered and consent obtained from patient. PSYCHOTHERAPY: Supportive psychotherapy provided MEDICAL: Per primary team DELIRIUM PRECAUTIONS: Please re-orient patient frequently, keep lights on during the day, and minimize benzodiazepines and opiates as these medications could worsen patient's confusion. 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 Admit to [facility] when medically clear. LEGAL STATUS: 1013 FOLLOW-UP: Will follow Thank you for the consult. Please contact with any questions and/or concerns Medications and Allergies Allergies Allergy/AdvReac Type Severity Reaction Status Date / Time acetaminophen [From Tylenol] Allergy Rash Verified 12/28/20 10:08 aspirin Allergy Unknown Verified 12/28/20 10:08 furosemide [From Lasix] Allergy Rash Verified 12/28/20 10:08 ibuprofen [From Motrin] Allergy Rash Verified 12/28/20 10:08 Penicillins Allergy Rash Verified 12/28/20 10:08 Home Medications Medication Instructions Recorded Confirmed Last Taken Type Tamsulosin [Flomax] 0.4 mg PO DAILY #30 capsule 05/13/19 12/28/20 Unknown Rx allopurinoL [Zyloprim] 100 mg PO QDAY #30 tablet 05/13/19 12/28/20 2 Days Ago Rx ~11/14/19 QUEtiapine [SEROquel] 100 mg PO QHS #30 tablet 12/31/19 12/28/20 Unknown Rx Sertraline [Zoloft] 25 mg PO QDAY #30 tablet 12/31/19 12/28/20 Unknown Rx Amlodipine Besylate [Norvasc] 10 mg PO QDAY 09/05/20 12/28/20 Unknown History Mirtazapine [Remeron 15mg TAB] 15 mg PO QHS 09/05/20 12/28/20 Unknown History hydroCHLOROthiazide [Hctz] 25 mg PO QDAY 09/05/20 12/28/20 Unknown History risperiDONE [RisperDAL] 1 mg PO BID 09/06/20 12/28/20 Unknown History amLODIPine 10 mg PO DAILY 12/28/20 12/28/20 Unknown History Active Meds: Active Medications Al Hydrox/Mg Hydrox/Simethicone (Alum-Mag Hydroxide-Simethicone [id number]/5ml Oral Liqd 30 Ml) 30 ml PO Q4HR PRN PRN Reason: Indigestion Magnesium Hydroxide (Magnesium Hydroxide (Mom) Oral Liqd Udc) 30 ml PO Q12HR PRN PRN Reason: Constipation Mental Status Exam - Vital signs Last Vital Signs Temp 98.6 F 12/28/20 10:54 Pulse 87 12/28/20 10:54 Resp 20 12/28/20 10:54 BP 109/67 12/28/20 10:54 Pulse Ox 97 12/28/20 10:54 Results Result Diagrams: 12/28/20 09:52 12/28/20 09:52 Abnormal lab results 12/28/20 12/28/20 12/28/20 Range/Units 09:52 09:52 09:52 WBC (4.5-11.0) K/mm3 MCH (28-32) pg MCHC (32-34) % RDW (13.2-15.2) % Lymph % (Auto) (13.4-35.0) % [place] % (Auto) (0.0-7.3) % Potassium 3.2 L (3.6-5.0) mmol/L BUN 5 L (9-20) mg/dL Salicylates < 0.3 L (2.8-20.0) mg/dL Acetaminophen 5.0 L (10.0-30.0) ug/mL 12/28/20 Range/Units 09:52 WBC 3.9 L (4.5-11.0) K/mm3 MCH 33 H (28-32) pg MCHC 35 H (32-34) % RDW 16.3 H (13.2-15.2) % Lymph % (Auto) 38.9 H (13.4-35.0) % [place] % (Auto) 11.4 H (0.0-7.3) % Potassium (3.6-5.0) mmol/L BUN (9-20) mg/dL Salicylates (2.8-20.0) mg/dL Acetaminophen (10.0-30.0) ug/mL All other labs normal.
[2020-12-28] MEDS ORDERED: POTASSIUM CHLORIDE ER 20 MEQ TAB PO ONE (11:24)
[2020-12-28 11:50] LABS: Cannabinoid Screen,Urine PRESUMPTIVE POSITIVE; Cocaine Screen,Urine PRESUMPTIVE POSITIVE
[2020-12-28] MEDS: risperiDONE 1 MG TAB PO SCH ×2 (12:04→22:02)
[2020-12-28] MEDS: DIVALPROEX DR 125 MG TAB PO SCH ×2 (12:05→22:02)
[2020-12-28] MEDS ORDERED: traMADol 50 MG TAB PO ONE (20:45)
[2020-12-28] MEDS ORDERED: LORazepam 2 MG/ML VIAL IV ONE (20:45)
[2020-12-28] MEDS ORDERED: MIRTAZAPINE 15 MG TAB PO SCH (22:00)
--- NOTE | 2020-12-29 08:21 | Progress Note ---
Subjective - Reason for Consult Consult date: 12/29/20 Reason for consult: depression, SI - Chief Complaint Chief complaint: The patient was lying down in bed asleep. He is complaining of hands, and legs pain. He says "I don't feel good at all." The patient says "I am so depressed. I can't take this." He verbalizes "hearing voices and seeing stuff flying in the air." He says he's suicidal with a plan to "take pills and just never wake up." REVIEW OF SYSTEMS Constitutional: Negative for weight loss ENT: Negative for stridor Respiratory: Negative for cough or hemoptysis All other systems reviewed and are negative MENTAL STATUS EXAMINATION General Appearance and Behavior: Age appropriate, wearing appropriate clothes, cooperative Cooperation: Participating Mood: "depressed" Affect and affective range: congruent with stated mood Thought Process: Goal directed Thought Content: logical Speech: Normal volume, Regular rate and rhythm, Suicidal Ideation: no, yes, I always feel like that Homicidal Ideation: Denies HI Hallucinations: Denies Delusions: None elicited Impulse Control: Impaired Insight and Judgment: Limited insight and judgment Orientation: Alert, oriented, Assessment and Plan Schizophrenia Cocaine Dependence Treatment Plan MEDICATIONS Restarted Home Zoloft 25mg po daily Increased Depakote DR 250mg po BID Risks, benefits and alternatives of medications discussed with the patient, questions answered and consent obtained from patient. PSYCHOTHERAPY: Supportive psychotherapy provided MEDICAL: Per primary team DELIRIUM PRECAUTIONS: Please re-orient patient frequently, keep lights on during the day, and minimize benzodiazepines and opiates as these medications could worsen patient's confusion. 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 Admit to [facility] when medically clear. LEGAL STATUS: 1013 FOLLOW-UP: Will follow Thank you for the consult. Please contact with any questions and/or concerns Mental Status Exam - Vital signs Last Vital Signs Temp 98.4 F 12/28/20 20:04 Pulse 84 12/28/20 20:04 Resp 16 12/28/20 20:04 BP 136/88 12/28/20 20:04 Pulse Ox 95 12/28/20 20:04
[2020-12-29] MEDS ORDERED: TRIAMTER/HCTZ 37.5-25 MG TAB PO SCH (10:00)
[2020-12-29] MEDS ORDERED: DIVALPROEX DR 250 MG TAB PO SCH (10:00)
[2020-12-29] MEDS ORDERED: SERTRALINE 25 MG TAB PO SCH (10:00)
[2020-12-29] MEDS: risperiDONE 1 MG TAB PO SCH (12:10)
--- NOTE | 2020-12-29 17:33 | Event Note ---
Date: 12/29/20 The patient was evaluated in the emergency department for symptoms described in the history of present illness. He/she was evaluated in the context of the global COVID-19 pandemic, which necessitated consideration that the patient might be at risk for infection with the virus that causes COVID-19. Institutional protocols and algorithms that pertain to the evaluation of patients at risk for COVID-19 are in a state of rapid change based on information released by regulatory bodies including the CDC and federal and state organizations. These policies and algorithms were followed during the patient's care in the emergency department. Please note that these policies, procedures and recommendations changed on a rapid basis. Patient was deemed medically cleared on his initial evaluation by initial treating ER physician. He has been resting comfortably for the past 3 days, without incident. Laboratory studies, radiology studies, original decision making is reviewed and appreciated. The patient himself is pleasant and cooperative, eating a peanut butter and jelly sandwich, and he is in no acute distress. He feels like he has lower extremity swelling. Upon review of prior documentation, he has been prescribed Bumex. He will therefore be discharged to our psychiatric facility/units with Bumex, and potassium prescription.
[2020-12-29 18:43] VITALS: BP 114/82
== END 2020-12-29 17:48 ==
LOC: ED 09:34
DX: E87.6 Hypokalemia (principal); F20.9 Schizophrenia, unspecified; I42.9 Cardiomyopathy, unspecified; Z04.6 Encounter for general psychiatric examination, requested by authority; I11.0 Hypertensive heart disease with heart failure; I50.9 Heart failure, unspecified; G40.909 Epilepsy, unspecified, not intractable, without status epilepticus; F17.200 Nicotine dependence, unspecified, uncomplicated; Z79.899 Other long term (current) drug therapy; Z88.0 Allergy status to penicillin; Z88.6 Allergy status to analgesic agent; Z88.8 Allergy status to other drugs, medicaments and biological substances; Z20.822 Contact with and (suspected) exposure to COVID-19
CPT/HCPCS: 36415; 71045; 80048; 80076; 80307; 81001; 83735; 83880; 85025; 85610; 85730; 96374; 99285; J2060; U0003; 80320; G0480

== ENCOUNTER 2020-12-29 15:57 | Inpatient (IN) | payer MEDICAID ==
[2020-12-29] MEDS: POTASSIUM CHLORIDE ER 20 MEQ TAB PO SCH (22:12)
[2020-12-29] MEDS: QUEtiapine 100 MG TAB PO SCH (22:12)
[2020-12-29] MEDS: risperiDONE 1 MG TAB PO SCH (22:12)
[2020-12-29] MEDS: MIRTAZAPINE 15 MG TAB PO SCH (22:12)
[2020-12-30 09:01] LABS: Chol/HDL Ratio 3.34 %
--- NOTE | 2020-12-30 09:01 | History and Physical Report ---
GP History & Physical - History of Present Illness Date of admission: 12/29/20 Date of Examination: 12/30/20 Reason for Admission: Danger to self History of Present Illness: Kash Pinedo is a 55y/o male patient who is known to me. I have been treating him over the past couple of days. He was admitted to [facility] for suicidal thoughts and hallucinations. During my initial encounter with the patient he is mostly complaining of physical symptoms of his hands, body and feet being swollen. The patient says "I have CHF and they got me on too much medicine." The patient says "I'm concerned about my heart." He then shows me his hands, they do appear somewhat swollen. The patient says "I feel terrible and swollen." The patient is calm and cooperative. He verbalizes using cocaine. Advised the patient that cocaine would make his heart worse. He nodded his head in agreement. When asking the patient was he here because of his mental health or physical complaints, he became a little irritable and said "yes, both of them, my mind too." He does verbalized being depressed, and states he's been feeling like this for a long time. The patient says he's SI/HI, and "I want to break stuff and do stuff." The patient says "last time I didn't get admitted but I really need it this time." Her verbalizes hallucinations telling him to kill himself. During my interview with the patient this morning, he is lying in bed, asleep. The patient appears irritable, but he does thank me for "getting him help." he says he still doesn't feel good. The patient says "I'm depressed, still suicidal and seeing stuff all over the wall." He then says "and hearing voices telling me to hurt myself." PAST PSYCHIATRIC HISTORY Diagnoses: Paranoid schizophrenia Suicide attempts or Self-harm behavior: Yes Prior psychiatric hospitalizations: Yes Substance Abuse history: Alcohol Previous psychiatric medications tried: Risperidone, haldol Outpatient treatment: Yes PAST MEDICAL HISTORY: none reported Family Psychiatric History: None reported or documented SOCIAL HISTORY Marital Status: Single Living Arrangements: "college tribal by myself" Employment Status: Unemployed Access to guns/weapons: none reported Education: 11th grade History of Abuse: none reported Legal History: REVIEW OF SYSTEMS Constitutional: Negative for weight loss ENT: Negative for stridor Respiratory: Negative for cough or hemoptysis All other systems reviewed and are negative MENTAL STATUS EXAMINATION General Appearance and Behavior: Age appropriate, wearing appropriate clothes, cooperative, irritable Cooperation: Participating Mood: "depressed" Affect and affective range: congruent with stated mood Thought Process: Goal directed Thought Content: logical Speech: Normal volume, Regular rate and rhythm, Suicidal Ideation: no, yes, I always feel like that Homicidal Ideation: Denies HI Hallucinations: Denies Delusions: None elicited Impulse Control: Impaired Insight and Judgment: Limited insight and judgment Orientation: Alert, oriented, Assessment and Plan Schizophrenia Treatment Plan Patient admitted for inpatient psychiatric evaluation, medication adjustment and close monitoring The patient's behavior, mood, sleep and appetite will be closely monitored. Patient enrolled in individual and group therapeutic sessions and encouraged to attend. Patient provided with a safe and structured environment. Patient's physical health needs will be addressed by the Hospitalist. Hospitalist Consulted Labs including CBC, CMP, Lipid profile and Hemoglobin A1C levels ordered for baseline reference Social Assessment will be completed and the Embedded Hardware Engineer will work with patient and family to ensure a suitable and safe disposition Medication adjustment will be made as clinically indicated Increased Depakote DR 250mg po BID Usual Wellness Jehovah'S Witness/Preservation: - Start Trazodone 50 mg po QHS & 50 mg po QHS PRN between 10 PM & 2 AM for insomnia - Start Melatonin 5 mg po QHS to promote circadian rhythm - Start Copake-3 for brain health, reduce impulsivity, and as adjunctive treatment for mood disorder, continue upon discharge given overall benefits. - Start B1 prophylaxis with 200 mg po for 5 days The patient agreed on the treatment plan, understood the risk, benefit, alternative treatment, potential consequence of no treatment, and gave informed consent. Initial Certification I certify that the inpatient psychiatric services are required for treatment that could reasonably be expected to improve the patient's condition of hallucinations, depression and suicidal thoughts. Estimated days: 7 Post hospital care: primary care provider, psychiatric provider Legal Status: Voluntary Reaction to Hospitalization: Accepting Medications and Allergies Allergies Allergy/AdvReac Type Severity Reaction Status Date / Time acetaminophen [From Tylenol] Allergy Rash Verified 12/28/20 10:08 aspirin Allergy Unknown Verified 12/28/20 10:08 furosemide [From Lasix] Allergy Rash Verified 12/28/20 10:08 ibuprofen [From Motrin] Allergy Rash Verified 12/28/20 10:08 Penicillins Allergy Rash Verified 12/28/20 10:08 Home Medications Medication Instructions Recorded Confirmed Last Taken Type Tamsulosin [Flomax] 0.4 mg PO DAILY #30 capsule 05/13/19 12/29/20 Unknown Rx allopurinoL [Zyloprim] 100 mg PO QDAY #30 tablet 05/13/19 12/29/20 2 Days Ago Rx ~11/14/19 QUEtiapine [SEROquel] 100 mg PO QHS #30 tablet 12/31/19 12/29/20 Unknown Rx Sertraline [Zoloft] 25 mg PO QDAY #30 tablet 12/31/19 12/29/20 Unknown Rx Amlodipine Besylate [Norvasc] 10 mg PO QDAY 09/05/20 12/29/20 Unknown History Mirtazapine [Remeron 15mg TAB] 15 mg PO QHS 09/05/20 12/29/20 Unknown History hydroCHLOROthiazide [Hctz] 25 mg PO QDAY 09/05/20 12/29/20 Unknown History risperiDONE [RisperDAL] 1 mg PO BID 09/06/20 12/29/20 Unknown History amLODIPine 10 mg PO DAILY 12/28/20 12/29/20 Unknown History Bumetanide [Bumex 1 mg tab] 1 mg PO BID #60 tab 12/29/20 12/29/20 Unknown Rx Potassium Chloride [K-Dur] 20 meq PO BID #30 tab 12/29/20 12/29/20 Unknown Rx Active Meds: Active Medications Allopurinol (Allopurinol 100 Mg Tab) 100 mg PO QDAY [facility] Amlodipine Besylate (Amlodipine 10 Mg Tab) 10 mg PO QDAY [facility] Bumetanide (Bumetanide 1 Mg Tab) 1 mg PO QDAY [facility] Hydrochlorothiazide (Hydrochlorothiazide 25 Mg Tab) 25 mg PO QDAY [facility] Mirtazapine (Mirtazapine 15 Mg Tab) 15 mg PO QHS [facility] Last Admin: 12/29/20 22:12 Dose: 15 mg Documented by: Potassium Chloride (Potassium Chloride Er 20 Meq Tab) 20 meq PO BID [facility] Last Admin: 12/29/20 22:12 Dose: 20 meq Documented by: Quetiapine Fumarate (Quetiapine 100 Mg Tab) 100 mg PO QHS [facility] Last Admin: 12/29/20 22:12 Dose: 100 mg Documented by: Risperidone (Risperidone 1 Mg Tab) 1 mg PO BID [facility] Last Admin: 12/29/20 22:12 Dose: 1 mg Documented by: Sertraline HCl (Sertraline 25 Mg Tab) 25 mg PO QDAY [facility] Tamsulosin HCl (Tamsulosin 0.4 Mg Cap) 0.4 mg PO QDAY [facility] Results - Results Labs/Vitals: Laboratory Last Values POC Glucose 89 mg/dL (70-105) 12/30/20 06:28 Hemoglobin A1c 5.8 % (4-6) 12/30/20 07:09 Last Vital Signs Temp 98.6 F 12/30/20 08:31 Pulse 89 12/30/20 08:31 Resp 12/30/20 08:31 BP 121/73 12/30/20 08:31 Pulse Ox 94 12/30/20 08:31 Physical Examination - Constitutional Vitals: Vital Signs Temp Pulse Resp BP Pulse Ox 98.6 F 89 19 121/73 94 12/30/20 08:31 12/30/20 08:31 12/30/20 08:31 12/30/20 08:31 12/30/20 08:31 Temperature -Last 24 Hours Temperature 98.6 F Temperature 98.8 F Mental Status Exam - Vital signs Last Vital Signs Temp 98.6 F 12/30/20 08:31 Pulse 89 12/30/20 08:31 Resp 19 12/30/20 08:31 BP 121/73 12/30/20 08:31 Pulse Ox 94 12/30/20 08:31 Physician Certification - Certification Statement Physician Certification Statement: This is an acknowledgement statement that KASH PINEDO is a 55 year old M who requires inpatient psychiatric admission for treatment which could reasonably be expected to improve the patient's condition for Estimated period of time patient will need to remain in the hospital: [ ] Plan for post-hospital care: [ ]
[2020-12-30] MEDS: DIVALPROEX DR 250 MG TAB PO SCH ×2 (09:42→21:21)
[2020-12-30] MEDS: hydroCHLOROthiazide 25 MG TAB PO SCH (09:42)
[2020-12-30] MEDS: TAMSULOSIN 0.4 MG CAP PO SCH (09:42)
[2020-12-30] MEDS: SERTRALINE 25 MG TAB PO SCH (09:42)
[2020-12-30] MEDS: POTASSIUM CHLORIDE ER 20 MEQ TAB PO SCH (09:42)
[2020-12-30] MEDS: allopurinoL 100 MG TAB PO SCH (09:42)
[2020-12-30] MEDS: amLODIPine 10 MG TAB PO SCH (09:42)
[2020-12-30] MEDS: BUMETANIDE 1 MG TAB PO SCH (09:42)
[2020-12-30] MEDS: risperiDONE 1 MG TAB PO SCH ×2 (09:43→21:21)
--- NOTE | 2020-12-30 11:06 | Consultation ---
<PRATIK RICO - Last Filed: 12/30/20 13:30> History of Present Illness - Reason for Consult Consult date: 12/30/20 Medical management Requesting physician: GRAHAM BARKLEY - History of Present Illness This is a 55-year-old male with HTN, CHF, JARAD (does not wear CPAP), BPH, GERD, gout, COPD, asthma polysubstance abuse (cocaine, marijuana, former tobacco abuse) and EtOH abuse (6 pack/day for "years") who was admitted to [facility] for suicidal ideations. Patient states that he has epigastric discomfort with deep breathing without radiation rated at a 10/10, dyspnea on exertion and at rest which has been ongoing for years, night sweats for "a while", occasional hemoptysis for "a while/years." Patient denies any fevers, chills, nausea, vomiting, diarrhea or recent weight loss without trying. Patient denies any known exposure to COVID-19, recent travels or exposure to sick persons. We were consulted for medical management while inpatient. Past History Past Medical History: COPD, GERD, heart failure, hypertension, other (Polysubstance abuse (EtOH, tobacco, cocaine, marijuana), gout, BPH, asthma) Past Surgical History: Other (Right lower extremity and upper extremity tendon repair) Social history: single, Lives alone, smoking (Tobacco, cocaine), alcohol abuse, full code. denies: prescription drug abuse, IV drug use Family history: other (Mental illness) Medications and Allergies Allergies Allergy/AdvReac Type Severity Reaction Status Date / Time acetaminophen [From Tylenol] Allergy Rash Verified 12/28/20 10:08 aspirin Allergy Unknown Verified 12/28/20 10:08 furosemide [From Lasix] Allergy Rash Verified 12/28/20 10:08 ibuprofen [From Motrin] Allergy Rash Verified 12/28/20 10:08 Penicillins Allergy Rash Verified 12/28/20 10:08 Home Medications Medication Instructions Recorded Confirmed Last Taken Type Tamsulosin [Flomax] 0.4 mg PO DAILY #30 capsule 05/13/19 12/29/20 Unknown Rx allopurinoL [Zyloprim] 100 mg PO QDAY #30 tablet 05/13/19 12/29/20 2 Days Ago Rx ~11/14/19 QUEtiapine [SEROquel] 100 mg PO QHS #30 tablet 12/31/19 12/29/20 Unknown Rx Sertraline [Zoloft] 25 mg PO QDAY #30 tablet 12/31/19 12/29/20 Unknown Rx Amlodipine Besylate [Norvasc] 10 mg PO QDAY 09/05/20 12/29/20 Unknown History Mirtazapine [Remeron 15mg TAB] 15 mg PO QHS 09/05/20 12/29/20 Unknown History hydroCHLOROthiazide [Hctz] 25 mg PO QDAY 09/05/20 12/29/20 Unknown History risperiDONE [RisperDAL] 1 mg PO BID 09/06/20 12/29/20 Unknown History amLODIPine 10 mg PO DAILY 12/28/20 12/29/20 Unknown History Bumetanide [Bumex 1 mg tab] 1 mg PO BID #60 tab 12/29/20 12/29/20 Unknown Rx Potassium Chloride [K-Dur] 20 meq PO BID #30 tab 12/29/20 12/29/20 Unknown Rx Active Meds: Active Medications Allopurinol (Allopurinol 100 Mg Tab) 100 mg PO QDAY [facility] Last Admin: 12/30/20 09:42 Dose: 100 mg Documented by: Amlodipine Besylate (Amlodipine 10 Mg Tab) 10 mg PO QDAY [facility] Last Admin: 12/30/20 09:42 Dose: 10 mg Documented by: Bumetanide (Bumetanide 1 Mg Tab) 1 mg PO QDAY [facility] Last Admin: 12/30/20 09:42 Dose: 1 mg Documented by: Divalproex Sodium (Divalproex Dr 250 Mg Tab) 250 mg PO BID [facility] Last Admin: 12/30/20 09:42 Dose: 250 mg Documented by: Hydrochlorothiazide (Hydrochlorothiazide 25 Mg Tab) 25 mg PO QDAY [facility] Last Admin: 12/30/20 09:42 Dose: 25 mg Documented by: Mirtazapine (Mirtazapine 15 Mg Tab) 15 mg PO QHS [facility] Last Admin: 12/29/20 22:12 Dose: 15 mg Documented by: Potassium Chloride (Potassium Chloride Er 20 Meq Tab) 20 meq PO BID [facility] Last Admin: 12/30/20 09:42 Dose: 20 meq Documented by: Quetiapine Fumarate (Quetiapine 100 Mg Tab) 100 mg PO QHS [facility] Last Admin: 12/29/20 22:12 Dose: 100 mg Documented by: Risperidone (Risperidone 1 Mg Tab) 1 mg PO BID [facility] Last Admin: 12/30/20 09:43 Dose: 1 mg Documented by: Sertraline HCl (Sertraline 25 Mg Tab) 25 mg PO QDAY [facility] Last Admin: 12/30/20 09:42 Dose: 25 mg Documented by: Tamsulosin HCl (Tamsulosin 0.4 Mg Cap) 0.4 mg PO QDAY [facility] Last Admin: 12/30/20 09:42 Dose: 0.4 mg Documented by: Review of Systems Constitutional: night sweats, no weight loss, no weight gain, no fever, no chills, no sweats, no anorexia, no fatigue, no weakness Ears, nose, mouth and throat: no ear pain, no ear discharge, no tinnitis, no decreased hearing, no nose pain, no nasal congestion, no nasal discharge, no s inus pressure, no sinus pain, no epistaxis, no bleeding gums, no dental pain, no sore throat, no headache Cardiovascular: edema, shortness of breath, dyspnea on exertion, high blood pressure, leg edema, no chest pain, no orthopnea, no palpitations, no rapid/irregular heart beat, no syncope, no lightheadedness, no paroxysmal nocturnal dyspnea, no claudication Respiratory: cough, hemoptysis, shortness of breath, dyspnea on exertion, pain on inspiration, sleep apnea, no cough with sputum, no excessive sputum, no home oxygen Gastrointestinal: no abdominal pain, no nausea, no vomiting, no diarrhea, no constipation, no change in bowel habits, no hematemesis, no coffee ground emesis, no BRBPR, no melena, no hematochezia Genitourinary Male: no dysuria, no hematuria, no flank pain, no discharge, no urinary frequency, no urinary hesitancy, no nocturia Rectal: hemorrhoids, no incontinence, no bleeding Musculoskeletal: arm numbness/tingling, no neck stiffness, no neck pain, no shooting arm pain, no low back pain, no shooting leg pain, no leg numb ness/tingling, no redness of joints, no limitation of motion, no frequent falls, no fractures Integumentary: no rash, no pruritis, no redness, no sores, no wounds, no jaundice Neurological: numbness, tingling, no head injury, no transient paralysis, no paralysis, no weakness, no parathesias, no seizures, no tremors, no lack of coordination, no vertigo, no headaches, no convulsions, no change in speech, no changes in smell/taste, no double vision, no loss of vision Psychiatric: suicidal ideation, irritability, no anxiety, no memory loss, no change in sleep habits, no sleep disturbances, no insomnia, no hypersomnia, no disorientation Endocrine: no cold intolerance, no heat intolerance, no polyphagia, no excessive thirst, no polydipsia, no polyuria, no nocturia, no excessive sweating, no weig ht change, no increase in ring/shoe/hat size, no high blood sugars Hematologic/Lymphatic: no easy bruising, no easy bleeding Allergic/Immunologic: no allergic rhinitis, no wheezing Exam - Constitutional Vitals: Temp Pulse Resp BP Pulse Ox 98.6 F 89 19 121/73 94 12/30/20 08:31 12/30/20 08:12/30/20 08:12/30/20 08:12/30/20 08:31 General appearance: Present: no acute distress - EENT Eyes: Present: PERRL, EOM intact ENT: hearing intact, dentition normal - Neck Neck: Present: normal ROM - Respiratory Respiratory effort: normal Respiratory: bilateral: CTA - Cardiovascular Rhythm: regular Heart Sounds: Present: S1 & S2. Absent: systolic murmur, diastolic murmur - Extremities Extremities: no ischemia, pulses intact, pulses symmetrical, normal temperature, normal color, Full ROM Extremity abnormal: edema - Peripheral Assessment Bilateral Lower Extremity Edema Type: Non-pitting Capillary Refill: < 3 seconds Skin Temperature: Warm Peripheral Pulses: within normal limits - Abdominal General gastrointestinal: Present: soft, non-tender, non-distended, normal bowel sounds - Integumentary Integumentary: Present: clear, warm, dry - Musculoskeletal Musculoskeletal: strength equal bilaterally - Psychiatric Psychiatric: agitated - Neurologic Neurologic: CNII-XII intact, no focal deficits, moves all extremities - Allied Health Allied health notes reviewed: nursing Assessment and Plan Schizophrenia -Per primary Hypertension -Resume home antihypertensive regimen and titrate as necessary -Blood pressure monitoring per protocol Congestive heart failure -12/2018 exercise stress test normal, -12/2018 echocardiogram showed EF of 45 to 50%, mild concentric LVH -Resume cardioprotective regimen -Daily weights -Outpatient follow-up to cardiology JARAD -Patient does not wear CPAP machine at home -Supplemental oxygen as needed -Pulmonary hygiene -Supportive care -Outpatient follow-up with pulmonology BPH -Resume home Flomax GERD -Low-dose PPI -Supportive care Gout -Supportive care -Resume home allopurinol COPD -Supportive care -Does not seem to be in acute exacerbation at this time -Outpatient pulmonary follow-up Asthma -Supportive care -Does not seem to be in acute exacerbation at this time Polysubstance abuse -History of cocaine, marijuana, tobacco -Supportive care -12/28 UDS positive for cocaine and marijuana EtOH abuse -Patient admits to 6pack/day of beer consumption -12/28 plasma/serum alcohol level 0.18 -We will initiate CIWA protocol as needed DVT prophylaxis -Patient is ambulatory -SCDs to bilateral ultrasound in bed <LAURE PEACOCK - Last Filed: 12/31/20 07:27> Medications and Allergies Active Meds: Active Medications Allopurinol (Allopurinol 100 Mg Tab) 100 mg PO QDAY [facility] Last Admin: 12/30/20 09:42 Dose: 100 mg Documented by: Amlodipine Besylate (Amlodipine 10 Mg Tab) 10 mg PO QDAY [facility] Last Admin: 12/30/20 09:42 Dose: 10 mg Documented by: Bumetanide (Bumetanide 1 Mg Tab) 1 mg PO QDAY [facility] Last Admin: 12/30/20 09:42 Dose: 1 mg Documented by: Divalproex Sodium (Divalproex Dr 250 Mg Tab) 250 mg PO BID [facility] Last Admin: 12/30/20 21:21 Dose: 250 mg Documented by: Famotidine (Famotidine 10 Mg Tab) 10 mg PO BID [facility] Last Admin: 12/30/20 21:21 Dose: 10 mg Documented by: Hydrochlorothiazide (Hydrochlorothiazide 25 Mg Tab) 25 mg PO QDAY [facility] Last Admin: 12/30/20 09:42 Dose: 25 mg Documented by: Mirtazapine (Mirtazapine 15 Mg Tab) 15 mg PO QHS [facility] Last Admin: 12/30/20 21:21 Dose: 15 mg Documented by: Quetiapine Fumarate (Quetiapine 100 Mg Tab) 100 mg PO QHS [facility] Last Admin: 12/30/20 21:21 Dose: 100 mg Documented by: Risperidone (Risperidone 1 Mg Tab) 1 mg PO BID [facility] Last Admin: 12/30/20 21:21 Dose: 1 mg Documented by: Sertraline HCl (Sertraline 25 Mg Tab) 25 mg PO QDAY [facility] Last Admin: 12/30/20 09:42 Dose: 25 mg Documented by: Tamsulosin HCl (Tamsulosin 0.4 Mg Cap) 0.4 mg PO QDAY [facility] Last Admin: 12/30/20 09:42 Dose: 0.4 mg Documented by: Exam - Constitutional Vitals: Temp Pulse Resp BP Pulse Ox 98.8 F 70 15 121/86 97 12/30/20 22:00 12/30/20 22:00 12/30/20 22:00 12/30/20 22:00 12/30/20 22:00 Results - Labs CBC & Chem 7: 12/30/20 07:09 12/31/20 06:07 Labs: Abnormal lab results 12/30/20 12/30/20 12/31/20 Range/Units 07:09 07:09 06:07 WBC 3.4 L (4.5-11.0) K/mm3 MCV 96 H (84-94) fl MCH 33 H (28-32) pg RDW 16.7 H (13.2-15.2) % Glucose 101 H 108 H (75-100) mg/dL Assessment and Plan I saw and evaluated the patient. I agree with the findings and the plan of care as documented in the Nurse Practitioner's~note, with the following corrections and additions.
[2020-12-30 14:49] LABS: BUN/Creatinine Ratio 15; Blood Urea Nitrogen 12 mg/dL (9-20); Calcium 9.1 mg/dL (8.4-10.2); Hemolysis Index 5
[2020-12-30 14:51] LABS: Hematocrit 44.6 % (35.5-45.6); Hemoglobin 15.2 gm/dl (11.8-15.2); Mean Corpuscular HGB Conc 34 % (32-34); Mean Corpuscular Volume 96 fl (84-94); Platelet Count 171 K/mm3 (140-440); Red Blood Count 4.66 M/mm3 (3.65-5.03); Red Cell Distribution Width 16.7 % (13.2-15.2)
[2020-12-30] MEDS: MIRTAZAPINE 15 MG TAB PO SCH (21:21)
[2020-12-30] MEDS: QUEtiapine 100 MG TAB PO SCH (21:21)
[2020-12-30] MEDS: FAMOTIDINE 10 MG TAB PO SCH (21:21)
[2020-12-30] MEDS ORDERED: MIRTAZAPINE 15 MG TAB PO SCH (22:00)
[2020-12-31 06:35] LABS: BUN/Creatinine Ratio 18; Blood Urea Nitrogen 14 mg/dL (9-20); Calcium 8.8 mg/dL (8.4-10.2); Hemolysis Index 7
--- NOTE | 2020-12-31 08:29 | Progress Note ---
Subjective Date of service: 12/31/20 Principal diagnosis: schizophrenia Subjective Comment: The patient is lying down, he states he is not feeling good and need something for anxiety and sleep. The patient denies SI/HI. He does still verbalizes hallucinations, stating he sees things flying around, REVIEW OF SYSTEMS Constitutional: Negative for weight loss ENT: Negative for stridor Respiratory: Negative for cough or hemoptysis All other systems reviewed and are negative MENTAL STATUS EXAMINATION General Appearance and Behavior: Age appropriate, wearing appropriate clothes, cooperative, irritable Cooperation: Participating Mood: anxious Affect and affective range: congruent with stated mood Thought Process: Goal directed Thought Content: logical Speech: Normal volume, Regular rate and rhythm, Suicidal Ideation: Denies Homicidal Ideation: Denies HI Hallucinations: things flying around Delusions: None elicited Impulse Control: Impaired Insight and Judgment: Limited insight and judgment Orientation: Alert, oriented, Assessment and Plan Schizophrenia Treatment Plan Patient admitted for inpatient psychiatric evaluation, medication adjustment and close monitoring The patient's behavior, mood, sleep and appetite will be closely monitored. Patient enrolled in individual and group therapeutic sessions and encouraged to attend. Patient provided with a safe and structured environment. Patient's physical health needs will be addressed by the Hospitalist. Hospitalist Consulted Labs including CBC, CMP, Lipid profile and Hemoglobin A1C levels ordered for baseline reference Social Assessment will be completed and the Manufacturing Technologist will work with patient and family to ensure a suitable and safe disposition Medication adjustment will be made as clinically indicated Increased Depakote DR 250mg po BID yesterday Start Melatonin 5mg po qhs prn insomnia Start Vistaril 25mg po q6h prn anxiety Usual Wellness Druze/Preservation: - Start Trazodone 50 mg po QHS & 50 mg po QHS PRN between 10 PM & 2 AM for insomnia - Start Melatonin 5 mg po QHS to promote circadian rhythm - Start Hamel-3 for brain health, reduce impulsivity, and as adjunctive treatment for mood disorder, continue upon discharge given overall benefits. - Start B1 prophylaxis with 200 mg po for 5 days The patient agreed on the treatment plan, understood the risk, benefit, alternative treatment, potential consequence of no treatment, and gave informed consent. Estimated days: 7 Post hospital care: primary care provider, psychiatric provider Case staffed with Dr. Amaya Medications and Allergies Allergies Allergy/AdvReac Type Severity Reaction Status Date / Time acetaminophen [From Tylenol] Allergy Rash Verified 12/28/20 10:08 aspirin Allergy Unknown Verified 12/28/20 10:08 furosemide [From Lasix] Allergy Rash Verified 12/28/20 10:08 ibuprofen [From Motrin] Allergy Rash Verified 12/28/20 10:08 Penicillins Allergy Rash Verified 12/28/20 10:08 Home Medications Medication Instructions Recorded Confirmed Last Taken Type Tamsulosin [Flomax] 0.4 mg PO DAILY #30 capsule 05/13/19 12/29/20 Unknown Rx allopurinoL [Zyloprim] 100 mg PO QDAY #30 tablet 05/13/19 12/29/20 2 Days Ago Rx ~11/14/19 QUEtiapine [SEROquel] 100 mg PO QHS #30 tablet 12/31/19 12/29/20 Unknown Rx Sertraline [Zoloft] 25 mg PO QDAY #30 tablet 12/31/19 12/29/20 Unknown Rx Amlodipine Besylate [Norvasc] 10 mg PO QDAY 09/05/20 12/29/20 Unknown History Mirtazapine [Remeron 15mg TAB] 15 mg PO QHS 09/05/20 12/29/20 Unknown History hydroCHLOROthiazide [Hctz] 25 mg PO QDAY 09/05/20 12/29/20 Unknown History risperiDONE [RisperDAL] 1 mg PO BID 09/06/20 12/29/20 Unknown History amLODIPine 10 mg PO DAILY 12/28/20 12/29/20 Unknown History Bumetanide [Bumex 1 mg tab] 1 mg PO BID #60 tab 12/29/20 12/29/20 Unknown Rx Potassium Chloride [K-Dur] 20 meq PO BID #30 tab 12/29/20 12/29/20 Unknown Rx Active Meds: Active Medications Allopurinol (Allopurinol 100 Mg Tab) 100 mg PO QDAY [facility] Last Admin: 12/30/20 09:42 Dose: 100 mg Documented by: Amlodipine Besylate (Amlodipine 10 Mg Tab) 10 mg PO QDAY [facility] Last Admin: 12/30/20 09:42 Dose: 10 mg Documented by: Bumetanide (Bumetanide 1 Mg Tab) 1 mg PO QDAY [facility] Last Admin: 12/30/20 09:42 Dose: 1 mg Documented by: Divalproex Sodium (Divalproex Dr 250 Mg Tab) 250 mg PO BID [facility] Last Admin: 12/30/20 21:21 Dose: 250 mg Documented by: Famotidine (Famotidine 10 Mg Tab) 10 mg PO BID [facility] Last Admin: 12/30/20 21:21 Dose: 10 mg Documented by: Hydrochlorothiazide (Hydrochlorothiazide 25 Mg Tab) 25 mg PO QDAY [facility] Last Admin: 12/30/20 09:42 Dose: 25 mg Documented by: Mirtazapine (Mirtazapine 15 Mg Tab) 15 mg PO QHS [facility] Last Admin: 12/30/20 21:21 Dose: 15 mg Documented by: Quetiapine Fumarate (Quetiapine 100 Mg Tab) 100 mg PO QHS [facility] Last Admin: 12/30/20 21:21 Dose: 100 mg Documented by: Risperidone (Risperidone 1 Mg Tab) 1 mg PO BID [facility] Last Admin: 12/30/20 21:21 Dose: 1 mg Documented by: Sertraline HCl (Sertraline 25 Mg Tab) 25 mg PO QDAY [facility] Last Admin: 12/30/20 09:42 Dose: 25 mg Documented by: Tamsulosin HCl (Tamsulosin 0.4 Mg Cap) 0.4 mg PO QDAY [facility] Last Admin: 12/30/20 09:42 Dose: 0.4 mg Documented by: Results - Results Labs/Vitals: Laboratory Last Values WBC 3.4 K/mm3 (4.5-11.0) L 12/30/20 07:09 RBC 4.66 M/mm3 (3.65-5.03) 12/30/20 07:09 Hgb 15.2 gm/dl (11.8-15.2) 12/30/20 07:09 Hct 44.6 % (35.5-45.6) 12/30/20 07:09 MCV 96 fl (84-94) H 12/30/20 07:09 MCH 33 pg (28-32) H 12/30/20 07:09 MCHC 34 % (32-34) 12/30/20 07:09 RDW 16.7 % (13.2-15.2) H 12/30/20 07:09 Plt Count 171 K/mm3 (140-440) 12/30/20 07:09 Sodium 141 mmol/L (137-145) 12/31/20 06:07 Potassium 3.7 mmol/L (3.6-5.0) 12/31/20 06:07 Chloride 103.5 mmol/L (98-107) 12/31/20 06:07 Carbon Dioxide 29 mmol/L (22-30) D 12/31/20 06:07 Anion Gap 12 mmol/L 12/31/20 06:07 BUN 14 mg/dL (9-20) 12/31/20 06:07 Creatinine 0.8 mg/dL (0.8-1.3) 12/31/20 06:07 Estimated GFR > 60 ml/min 12/31/20 06:07 BUN/Creatinine Ratio 18 % 12/31/20 06:07 Glucose 108 mg/dL (75-100) H 12/31/20 06:07 POC Glucose 89 mg/dL (70-105) 12/30/20 06:28 Hemoglobin A1c 5.8 % (4-6) 12/30/20 07:09 Calcium 8.8 mg/dL (8.4-10.2) 12/31/20 06:07 Triglycerides 133 mg/dL (2-149) 12/30/20 07:09 Cholesterol 184 mg/dL (50-199) 12/30/20 07:09 LDL Cholesterol Direct 119 mg/dL (50-130) 12/30/20 07:09 HDL Cholesterol 55 mg/dL (40-59) 12/30/20 07:09 Cholesterol/HDL Ratio 3.34 % 12/30/20 07:09 TSH 1.860 mlU/mL (0.270-4.200) 12/30/20 07:09 Last Vital Signs Temp 98.8 F 12/30/20 22:00 Pulse 70 12/30/20 22:00 Resp 15 12/30/20 22:00 BP 121/86 12/30/20 22:00 Pulse Ox 97 12/30/20 22:00
[2020-12-31] MEDS ORDERED: POTASSIUM CHLORIDE ER 20 MEQ TAB PO SCH (10:00)
[2020-12-31] MEDS: BUMETANIDE 1 MG TAB PO SCH (10:19)
[2020-12-31] MEDS: allopurinoL 100 MG TAB PO SCH (10:19)
[2020-12-31] MEDS: hydroCHLOROthiazide 25 MG TAB PO SCH (10:19)
[2020-12-31] MEDS: DIVALPROEX DR 250 MG TAB PO SCH ×2 (10:19→21:30)
[2020-12-31] MEDS: SERTRALINE 25 MG TAB PO SCH (10:20)
[2020-12-31] MEDS: amLODIPine 10 MG TAB PO SCH (10:20)
[2020-12-31] MEDS: TAMSULOSIN 0.4 MG CAP PO SCH (10:20)
[2020-12-31] MEDS: risperiDONE 1 MG TAB PO SCH ×2 (10:20→21:30)
[2020-12-31] MEDS: FAMOTIDINE 10 MG TAB PO SCH ×2 (10:20→21:30)
[2020-12-31] MEDS ORDERED: IBUPROFEN 600 MG TAB PO ONE (17:45)
[2020-12-31] MEDS ORDERED: predniSONE 20 MG TAB PO ONE (18:00)
--- NOTE | 2020-12-31 20:34 | Progress Note ---
Hospitalist Physical - Constitutional Vitals: Temp Pulse Resp BP Pulse Ox 98.0 F 83 16 115/70 91 12/31/20 08:49 12/31/20 10:20 12/31/20 08:49 12/31/20 10:20 12/31/20 08:49 General appearance: Present: no acute distress Results - Labs CBC & Chem 7: 12/30/20 07:09 12/31/20 06:07 Labs: Laboratory Last Values WBC 3.4 K/mm3 (4.5-11.0) L 12/30/20 07:09 RBC 4.66 M/mm3 (3.65-5.03) 12/30/20 07:09 Hgb 15.2 gm/dl (11.8-15.2) 12/30/20 07:09 Hct 44.6 % (35.5-45.6) 12/30/20 07:09 MCV 96 fl (84-94) H 12/30/20 07:09 MCH 33 pg (28-32) H 12/30/20 07:09 MCHC 34 % (32-34) 12/30/20 07:09 RDW 16.7 % (13.2-15.2) H 12/30/20 07:09 Plt Count 171 K/mm3 (140-440) 12/30/20 07:09 Sodium 141 mmol/L (137-145) 12/31/20 06:07 Potassium 3.7 mmol/L (3.6-5.0) 12/31/20 06:07 Chloride 103.5 mmol/L (98-107) 12/31/20 06:07 Carbon Dioxide 29 mmol/L (22-30) D 12/31/20 06:07 Anion Gap 12 mmol/L 12/31/20 06:07 BUN 14 mg/dL (9-20) 12/31/20 06:07 Creatinine 0.8 mg/dL (0.8-1.3) 12/31/20 06:07 Estimated GFR > 60 ml/min 12/31/20 06:07 BUN/Creatinine Ratio 18 % 12/31/20 06:07 Glucose 108 mg/dL (75-100) H 12/31/20 06:07 POC Glucose 89 mg/dL (70-105) 12/30/20 06:28 Hemoglobin A1c 5.8 % (4-6) 12/30/20 07:09 Calcium 8.8 mg/dL (8.4-10.2) 12/31/20 06:07 Triglycerides 133 mg/dL (2-149) 12/30/20 07:09 Cholesterol 184 mg/dL (50-199) 12/30/20 07:09 LDL Cholesterol Direct 119 mg/dL (50-130) 12/30/20 07:09 HDL Cholesterol 55 mg/dL (40-59) 12/30/20 07:09 Cholesterol/HDL Ratio 3.34 % 12/30/20 07:09 TSH 1.860 mlU/mL (0.270-4.200) 12/30/20 07:09 [place]/IV: Voiding Method Toilet Active Medications - Current Medications Current Medications: Generic Name Dose Route Start Last Admin Trade Name Freq PRN Reason Stop Dose Admin Allopurinol 100 mg 12/30/20 10:00 12/31/20 10:19 Allopurinol 100 Mg Tab PO 100 mg QDAY TANNA Administration Amlodipine Besylate 10 mg 12/30/20 10:00 12/31/20 10:20 Amlodipine 10 Mg Tab PO 10 mg QDAY TANNA Administration Bumetanide 1 mg 12/30/20 10:00 12/31/20 10:19 Bumetanide 1 Mg Tab PO 1 mg QDAY TANNA Administration Divalproex Sodium 250 mg 12/30/20 10:00 12/31/20 10:[address] 250 Mg Tab PO 250 mg BID TANNA Administration Famotidine 10 mg 12/30/20 22:00 12/31/20 10:20 Famotidine 10 Mg Tab PO 10 mg BID TANNA Administration Hydrochlorothiazide 25 mg 12/30/20 10:00 12/31/20 10:19 Hydrochlorothiazide 25 Mg Tab PO 25 mg QDAY TANAN Administration Hydroxyzine Pamoate 25 mg 12/31/20 08:30 Hydroxyzine Pamoate 25 Mg Cap PO Q6H PRN Anxiety Melatonin 5 mg 12/31/20 22:00 Melatonin 5 Mg Tab PO QHS PRN Sleep Mirtazapine 15 mg 12/29/20 22:00 12/30/20 21:21 Mirtazapine 15 Mg Tab PO 15 mg QHS TANNA Administration Quetiapine Fumarate 100 mg 12/29/20 22:00 12/30/20 21:21 Quetiapine 100 Mg Tab PO 100 mg QHS TANNA Administration Risperidone 1 mg 12/29/20 22:00 12/31/20 10:20 Risperidone 1 Mg Tab PO 1 mg BID TANNA Administration Sertraline HCl 25 mg 12/30/20 10:00 12/31/20 10:20 Sertraline 25 Mg Tab PO 25 mg QDAY TANNA Administration Tamsulosin HCl 0.4 mg 12/30/20 10:00 12/31/20 10:20 Tamsulosin 0.4 Mg Cap PO 0.4 mg QDAY TANNA Administration
[2020-12-31] MEDS: QUEtiapine 100 MG TAB PO SCH (21:30)
[2020-12-31] MEDS: MIRTAZAPINE 15 MG TAB PO SCH (21:30)
[2020-12-31] MEDS ORDERED: MELATONIN 5 MG TAB PO PRN (22:00)
--- NOTE | 2021-01-01 08:54 | Progress Note ---
Subjective Date of service: 01/01/21 Principal diagnosis: schizophrenia Subjective Comment: The patient is lying down, he verbalizes feeling better, but is complaining about his gout. He denies SI/HI, but he still c/o of the hallucinations, but states not as bad. He says he slept better. Reason for continued inpatient treatment: The patient has hallucinations, and SI/HI on and off. The food preparation worker is setting up outpatient resources to ensue a safe discharge. Once this is done the patient may discharge. REVIEW OF SYSTEMS Constitutional: Negative for weight loss ENT: Negative for stridor Respiratory: Negative for cough or hemoptysis All other systems reviewed and are negative MENTAL STATUS EXAMINATION General Appearance and Behavior: Age appropriate, wearing appropriate clothes, cooperative, irritable Cooperation: Participating Mood: anxious Affect and affective range: congruent with stated mood Thought Process: Goal directed Thought Content: logical Speech: Normal volume, Regular rate and rhythm, Suicidal Ideation: Denies Homicidal Ideation: Denies Hallucinations: yes, but better Delusions: None elicited Impulse Control: Impaired Insight and Judgment: Limited insight and judgment Orientation: Alert, oriented, Assessment and Plan Schizophrenia Treatment Plan Patient admitted for inpatient psychiatric evaluation, medication adjustment and close monitoring The patient's behavior, mood, sleep and appetite will be closely monitored. Patient enrolled in individual and group therapeutic sessions and encouraged to attend. Patient provided with a safe and structured environment. Patient's physical health needs will be addressed by the Hospitalist. Hospitalist Consulted Labs including CBC, CMP, Lipid profile and Hemoglobin A1C levels ordered for baseline reference Social Assessment will be completed and the Yardage Caller will work with patient and family to ensure a suitable and safe disposition Medication adjustment will be made as clinically indicated No changes today Start Melatonin 5mg po qhs prn insomnia yesterday Start Vistaril 25mg po q6h prn anxiety yesterday Usual Wellness Sikh/Preservation: - Start Trazodone 50 mg po QHS & 50 mg po QHS PRN between 10 PM & 2 AM for insomnia - Start Melatonin 5 mg po QHS to promote circadian rhythm - Start Solon-3 for brain health, reduce impulsivity, and as adjunctive treatment for mood disorder, continue upon discharge given overall benefits. - Start B1 prophylaxis with 200 mg po for 5 days The patient agreed on the treatment plan, understood the risk, benefit, alternative treatment, potential consequence of no treatment, and gave informed consent. Estimated days: 2 Post hospital care: primary care provider, psychiatric provider Case staffed with Dr. Amaya Medications and Allergies Allergies Allergy/AdvReac Type Severity Reaction Status Date / Time acetaminophen [From Tylenol] Allergy Rash Verified 12/28/20 10:08 aspirin Allergy Unknown Verified 12/28/20 10:08 furosemide [From Lasix] Allergy Rash Verified 12/28/20 10:08 Penicillins Allergy Rash Verified 12/28/20 10:08 Home Medications Medication Instructions Recorded Confirmed Last Taken Type Tamsulosin [Flomax] 0.4 mg PO DAILY #30 capsule 05/13/19 12/29/20 Unknown Rx allopurinoL [Zyloprim] 100 mg PO QDAY #30 tablet 05/13/19 12/29/20 2 Days Ago Rx ~11/14/19 QUEtiapine [SEROquel] 100 mg PO QHS #30 tablet 12/31/19 12/29/20 Unknown Rx Sertraline [Zoloft] 25 mg PO QDAY #30 tablet 12/31/19 12/29/20 Unknown Rx Amlodipine Besylate [Norvasc] 10 mg PO QDAY 09/05/20 12/29/20 Unknown History Mirtazapine [Remeron 15mg TAB] 15 mg PO QHS 09/05/20 12/29/20 Unknown History hydroCHLOROthiazide [Hctz] 25 mg PO QDAY 09/05/20 12/29/20 Unknown History risperiDONE [RisperDAL] 1 mg PO BID 09/06/20 12/29/20 Unknown History amLODIPine 10 mg PO DAILY 12/28/20 12/29/20 Unknown History Bumetanide [Bumex 1 mg tab] 1 mg PO BID #60 tab 12/29/20 12/29/20 Unknown Rx Potassium Chloride [K-Dur] 20 meq PO BID #30 tab 12/29/20 12/29/20 Unknown Rx Active Meds: Active Medications Allopurinol (Allopurinol 100 Mg Tab) 100 mg PO QDAY [facility] Last Admin: 12/31/20 10:19 Dose: 100 mg Documented by: Amlodipine Besylate (Amlodipine 10 Mg Tab) 10 mg PO QDAY [facility] Last Admin: 12/31/20 10:20 Dose: 10 mg Documented by: Bumetanide (Bumetanide 1 Mg Tab) 1 mg PO QDAY [facility] Last Admin: 12/31/20 10:19 Dose: 1 mg Documented by: Divalproex Sodium (Divalproex Dr 250 Mg Tab) 250 mg PO BID [facility] Last Admin: 12/31/20 21:30 Dose: 250 mg Documented by: Famotidine (Famotidine 10 Mg Tab) 10 mg PO BID [facility] Last Admin: 12/31/20 21:30 Dose: 10 mg Documented by: Hydrochlorothiazide (Hydrochlorothiazide 25 Mg Tab) 25 mg PO QDAY [facility] Last Admin: 12/31/20 10:19 Dose: 25 mg Documented by: Hydroxyzine Pamoate (Hydroxyzine Pamoate 25 Mg Cap) 25 mg PO Q6H PRN PRN Reason: Anxiety Melatonin (Melatonin 5 Mg Tab) 5 mg PO QHS PRN PRN Reason: Sleep Last Admin: 12/31/20 20:45 Dose: 5 mg Documented by: Mirtazapine (Mirtazapine 15 Mg Tab) 15 mg PO QHS [facility] Last Admin: 12/31/20 21:30 Dose: 15 mg Documented by: Quetiapine Fumarate (Quetiapine 100 Mg Tab) 100 mg PO QHS [facility] Last Admin: 12/31/20 21:30 Dose: 100 mg Documented by: Risperidone (Risperidone 1 Mg Tab) 1 mg PO BID [facility] Last Admin: 12/31/20 21:30 Dose: 1 mg Documented by: Sertraline HCl (Sertraline 25 Mg Tab) 25 mg PO QDAY [facility] Last Admin: 12/31/20 10:20 Dose: 25 mg Documented by: Tamsulosin HCl (Tamsulosin 0.4 Mg Cap) 0.4 mg PO QDAY [facility] Last Admin: 12/31/20 10:20 Dose: 0.4 mg Documented by: Results - Results Labs/Vitals: Laboratory Last Values WBC 3.4 K/mm3 (4.5-11.0) L 12/30/20 07:09 RBC 4.66 M/mm3 (3.65-5.03) 12/30/20 07:09 Hgb 15.2 gm/dl (11.8-15.2) 12/30/20 07:09 Hct 44.6 % (35.5-45.6) 12/30/20 07:09 MCV 96 fl (84-94) H 12/30/20 07:09 MCH 33 pg (28-32) H 12/30/20 07:09 MCHC 34 % (32-34) 12/30/20 07:09 RDW 16.7 % (13.2-15.2) H 12/30/20 07:09 Plt Count 171 K/mm3 (140-440) 12/30/20 07:09 Sodium 141 mmol/L (137-145) 12/31/20 06:07 Potassium 3.7 mmol/L (3.6-5.0) 12/31/20 06:07 Chloride 103.5 mmol/L (98-107) 12/31/20 06:07 Carbon Dioxide 29 mmol/L (22-30) D 12/31/20 06:07 Anion Gap 12 mmol/L 12/31/20 06:07 BUN 14 mg/dL (9-20) 12/31/20 06:07 Creatinine 0.8 mg/dL (0.8-1.3) 12/31/20 06:07 Estimated GFR > 60 ml/min 12/31/20 06:07 BUN/Creatinine Ratio 18 % 12/31/20 06:07 Glucose 108 mg/dL (75-100) H 12/31/20 06:07 POC Glucose 89 mg/dL (70-105) 12/30/20 06:28 Hemoglobin A1c 5.8 % (4-6) 12/30/20 07:09 Calcium 8.8 mg/dL (8.4-10.2) 12/31/20 06:07 Triglycerides 133 mg/dL (2-149) 12/30/20 07:09 Cholesterol 184 mg/dL (50-199) 12/30/20 07:09 LDL Cholesterol Direct 119 mg/dL (50-130) 12/30/20 07:09 HDL Cholesterol 55 mg/dL (40-59) 12/30/20 07:09 Cholesterol/HDL Ratio 3.34 % 12/30/20 07:09 TSH 1.860 mlU/mL (0.270-4.200) 12/30/20 07:09 Last Vital Signs Temp 97.9 F 12/31/20 22:00 Pulse 83 12/31/20 22:00 Resp 18 12/31/20 22:00 BP 128/87 12/31/20 22:00 Pulse Ox 96 12/31/20 22:00
[2021-01-01] MEDS: DIVALPROEX DR 250 MG TAB PO SCH ×2 (09:44→21:23)
[2021-01-01] MEDS: hydroCHLOROthiazide 25 MG TAB PO SCH (09:44)
[2021-01-01] MEDS: FAMOTIDINE 10 MG TAB PO SCH ×2 (09:44→21:23)
[2021-01-01] MEDS: BUMETANIDE 1 MG TAB PO SCH (09:44)
[2021-01-01] MEDS: risperiDONE 1 MG TAB PO SCH ×2 (09:44→21:23)
[2021-01-01] MEDS: hydrOXYzine PAMOATE 25 MG CAP PO PRN (09:44)
[2021-01-01] MEDS: SERTRALINE 25 MG TAB PO SCH (09:44)
[2021-01-01] MEDS: TAMSULOSIN 0.4 MG CAP PO SCH (09:44)
[2021-01-01] MEDS: amLODIPine 10 MG TAB PO SCH (09:45)
[2021-01-01] MEDS: allopurinoL 100 MG TAB PO SCH (09:45)
[2021-01-01] MEDS ORDERED: clonazePAM 0.5 MG TAB PO ONE (19:35)
[2021-01-01] MEDS: MIRTAZAPINE 15 MG TAB PO SCH (21:23)
[2021-01-01] MEDS: QUEtiapine 100 MG TAB PO SCH (21:23)
[2021-01-01] MEDS: COLCHICINE 0.6 MG TAB PO SCH (21:23)
[2021-01-01] MEDS ORDERED: BUMETANIDE 1 MG TAB PO SCH (22:00)
[2021-01-02 09:53] VITALS: BP 117/85
[2021-01-02] MEDS: TAMSULOSIN 0.4 MG CAP PO SCH (10:00)
[2021-01-02] MEDS: FAMOTIDINE 10 MG TAB PO SCH (10:00)
[2021-01-02] MEDS: risperiDONE 1 MG TAB PO SCH (10:00)
[2021-01-02] MEDS ORDERED: hydroCHLOROthiazide 12.5 MG CAP PO SCH (10:00)
[2021-01-02] MEDS: allopurinoL 100 MG TAB PO SCH (10:00)
[2021-01-02] MEDS ORDERED: TAMSULOSIN 0.4 MG CAP PO SCH (10:00)
[2021-01-02] MEDS: hydroCHLOROthiazide 25 MG TAB PO SCH (10:00)
[2021-01-02] MEDS: COLCHICINE 0.6 MG TAB PO SCH (10:00)
[2021-01-02] MEDS ORDERED: allopurinoL 100 MG TAB PO SCH (10:00)
[2021-01-02] MEDS: SERTRALINE 25 MG TAB PO SCH (10:00)
[2021-01-02] MEDS: BUMETANIDE 1 MG TAB PO SCH (10:00)
[2021-01-02] MEDS ORDERED: amLODIPine 10 MG TAB PO SCH (10:00)
[2021-01-02] MEDS: hydrOXYzine PAMOATE 25 MG CAP PO PRN (10:00)
[2021-01-02] MEDS ORDERED: amLODIPine 5 MG TAB PO SCH (10:00)
[2021-01-02] MEDS: DIVALPROEX DR 250 MG TAB PO SCH (10:00)
[2021-01-02] MEDS: amLODIPine 10 MG TAB PO SCH (10:01)
--- NOTE | 2021-01-02 10:14 | Progress Note ---
Subjective Date of service: 01/02/21 Principal diagnosis: schizophrenia Subjective Comment: Psych Progress Patient describes a good and stable mood, denies being depressed or excessively nervous. Patient eats and sleeps well. Patient denies panic attacks, recurrent nightmares or flashbacks. Patient denies symptoms suggestive of OCD or PTSD. Patient denies hallucinations, paranoia, thought interference and no features suggestive of hypomania or rui. Patiently completely denies suicidal or h omicidal thoughts. Reason for continued inpatient treatment: The patient has hallucinations, and SI/HI on and off. The director social welfare is setting up outpatient resources to ensue a safe discharge. Once this is done the patient may discharge. REVIEW OF SYSTEMS Constitutional: Negative for weight loss ENT: Negative for stridor Respiratory: Negative for cough or hemoptysis All other systems reviewed and are negative MENTAL STATUS EXAMINATION General Appearance and Behavior: Age appropriate, wearing appropriate clothes, cooperative, irritable Cooperation: Participating Mood: anxious Affect and affective range: congruent with stated mood Thought Process: Goal directed Thought Content: logical Speech: Normal volume, Regular rate and rhythm, Suicidal Ideation: Denies Homicidal Ideation: Denies Hallucinations: yes, but better Delusions: None elicited Impulse Control: Impaired Insight and Judgment: Limited insight and judgment Orientation: Alert, oriented, Assessment and Plan Schizophrenia Treatment Plan Patient admitted for inpatient psychiatric evaluation, medication adjustment and close monitoring The patient's behavior, mood, sleep and appetite will be closely monitored. Patient enrolled in individual and group therapeutic sessions and encouraged to attend. Patient provided with a safe and structured environment. Patient's physical health needs will be addressed by the Hospitalist. Hospitalist Consulted Labs including CBC, CMP, Lipid profile and Hemoglobin A1C levels ordered for baseline reference Social Assessment will be completed and the [place] Consultant will work with patient and family to ensure a suitable and safe disposition Medication adjustment will be made as clinically indicated No changes today Start Melatonin 5mg po qhs prn insomnia yesterday Start Vistaril 25mg po q6h prn anxiety yesterday Usual Wellness Anabaptism/Preservation: - Start Trazodone 50 mg po QHS & 50 mg po QHS PRN between 10 PM & 2 AM for insomnia - Start Melatonin 5 mg po QHS to promote circadian rhythm - Start Beach-3 for brain health, reduce impulsivity, and as adjunctive treatment for mood disorder, continue upon discharge given overall benefits. - Start B1 prophylaxis with 200 mg po for 5 days The patient agreed on the treatment plan, understood the risk, benefit, alternative treatment, potential consequence of no treatment, and gave informed consent. Estimated days: 2 Post hospital care: primary care provider, psychiatric provider Case staffed with Dr. Amaya Medications and Allergies Allergies Allergy/AdvReac Type Severity Reaction Status Date / Time acetaminophen [From Tylenol] Allergy Rash Verified 12/28/20 10:08 aspirin Allergy Unknown Verified 12/28/20 10:08 furosemide [From Lasix] Allergy Rash Verified 12/28/20 10:08 Penicillins Allergy Rash Verified 12/28/20 10:08 Home Medications Medication Instructions Recorded Confirmed Last Taken Type Tamsulosin [Flomax] 0.4 mg PO DAILY #30 capsule 05/13/19 12/29/20 Unknown Rx allopurinoL [Zyloprim] 100 mg PO QDAY #30 tablet 05/13/19 12/29/20 2 Days Ago Rx ~11/14/19 QUEtiapine [SEROquel] 100 mg PO QHS #30 tablet 12/31/19 12/29/20 Unknown Rx Sertraline [Zoloft] 25 mg PO QDAY #30 tablet 12/31/19 12/29/20 Unknown Rx Amlodipine Besylate [Norvasc] 10 mg PO QDAY 09/05/20 12/29/20 Unknown History Mirtazapine [Remeron 15mg TAB] 15 mg PO QHS 09/05/20 12/29/20 Unknown History hydroCHLOROthiazide [Hctz] 25 mg PO QDAY 09/05/20 12/29/20 Unknown History risperiDONE [RisperDAL] 1 mg PO BID 09/06/20 12/29/20 Unknown History amLODIPine 10 mg PO DAILY 12/28/20 12/29/20 Unknown History Bumetanide [Bumex 1 mg tab] 1 mg PO BID #60 tab 12/29/20 12/29/20 Unknown Rx Potassium Chloride [K-Dur] 20 meq PO BID #30 tab 12/29/20 12/29/20 Unknown Rx Active Meds: Active Medications Allopurinol (Allopurinol 100 Mg Tab) 100 mg PO QDAY [facility] Last Admin: 01/02/21 10:00 Dose: 100 mg Documented by: Amlodipine Besylate (Amlodipine 10 Mg Tab) 10 mg PO QDAY [facility] Last Admin: 01/02/21 10:01 Dose: 10 mg Documented by: Bumetanide (Bumetanide 1 Mg Tab) 1 mg PO QDAY [facility] Last Admin: 01/02/21 10:00 Dose: 1 mg Documented by: Colchicine (Colchicine 0.6 Mg Tab) 0.6 mg PO BID [facility] Last Admin: 01/02/21 10:00 Dose: 0.6 mg Documented by: Divalproex Sodium (Divalproex Dr 250 Mg Tab) 250 mg PO BID [facility] Last Admin: 01/02/21 10:00 Dose: 250 mg Documented by: Famotidine (Famotidine 10 Mg Tab) 10 mg PO BID [facility] Last Admin: 01/02/21 10:00 Dose: 10 mg Documented by: Hydrochlorothiazide (Hydrochlorothiazide 25 Mg Tab) 25 mg PO QDAY [facility] Last Admin: 01/02/21 10:00 Dose: 25 mg Documented by: Hydroxyzine Pamoate (Hydroxyzine Pamoate 25 Mg Cap) 25 mg PO Q6H PRN PRN Reason: Anxiety Last Admin: 01/02/21 10:00 Dose: 25 mg Documented by: Melatonin (Melatonin 5 Mg Tab) 5 mg PO QHS PRN PRN Reason: Sleep Last Admin: 12/31/20 20:45 Dose: 5 mg Documented by: Mirtazapine (Mirtazapine 15 Mg Tab) 15 mg PO QHS [facility] Last Admin: 01/01/21 21:23 Dose: 15 mg Documented by: Quetiapine Fumarate (Quetiapine 100 Mg Tab) 100 mg PO QHS [facility] Last Admin: 01/01/21 21:23 Dose: 100 mg Documented by: Risperidone (Risperidone 1 Mg Tab) 1 mg PO BID [facility] Last Admin: 01/02/21 10:00 Dose: 1 mg Documented by: Sertraline HCl (Sertraline 25 Mg Tab) 25 mg PO QDAY [facility] Last Admin: 01/02/21 10:00 Dose: 25 mg Documented by: Tamsulosin HCl (Tamsulosin 0.4 Mg Cap) 0.4 mg PO QDAY [facility] Last Admin: 01/02/21 10:00 Dose: 0.4 mg Documented by: Results - Results Labs/Vitals: Laboratory Last Values WBC 3.4 K/mm3 (4.5-11.0) L 12/30/20 07:09 RBC 4.66 M/mm3 (3.65-5.03) 12/30/20 07:09 Hgb 15.2 gm/dl (11.8-15.2) 12/30/20 07:09 Hct 44.6 % (35.5-45.6) 12/30/20 07:09 MCV 96 fl (84-94) H 12/30/20 07:09 MCH 33 pg (28-32) H 12/30/20 07:09 MCHC 34 % (32-34) 12/30/20 07:09 RDW 16.7 % (13.2-15.2) H 12/30/20 07:09 Plt Count 171 K/mm3 (140-440) 12/30/20 07:09 Sodium 141 mmol/L (137-145) 12/31/20 06:07 Potassium 3.7 mmol/L (3.6-5.0) 12/31/20 06:07 Chloride 103.5 mmol/L (98-107) 12/31/20 06:07 Carbon Dioxide 29 mmol/L (22-30) D 12/31/20 06:07 Anion Gap 12 mmol/L 12/31/20 06:07 BUN 14 mg/dL (9-20) 12/31/20 06:07 Creatinine 0.8 mg/dL (0.8-1.3) 12/31/20 06:07 Estimated GFR > 60 ml/min 12/31/20 06:07 BUN/Creatinine Ratio 18 % 12/31/20 06:07 Glucose 108 mg/dL (75-100) H 12/31/20 06:07 POC Glucose 89 mg/dL (70-105) 12/30/20 06:28 Hemoglobin A1c 5.8 % (4-6) 12/30/20 07:09 Calcium 8.8 mg/dL (8.4-10.2) 12/31/20 06:07 Triglycerides 133 mg/dL (2-149) 12/30/20 07:09 Cholesterol 184 mg/dL (50-199) 12/30/20 07:09 LDL Cholesterol Direct 119 mg/dL (50-130) 12/30/20 07:09 HDL Cholesterol 55 mg/dL (40-59) 12/30/20 07:09 Cholesterol/HDL Ratio 3.34 % 12/30/20 07:09 TSH 1.860 mlU/mL (0.270-4.200) 12/30/20 07:09 Last Vital Signs Temp 97.9 F 01/02/21 08:22 Pulse 98 H 01/02/21 10:01 Resp 16 01/02/21 08:22 BP 117/85 01/02/21 10:01 Pulse Ox 98 01/02/21 08:22
--- NOTE | 2021-01-02 10:26 | Discharge Summary ---
Providers - Providers Date of Admission: 12/29/20 18:32 Date of discharge: 01/02/21 Attending physician: GRAHAM BARKLEY MD 12/29/20 16:25 Consult to Physician [CONS] Routine Comment: Consulting Provider: LAURE PEACOCK Physician Instructions: Reason For Exam: manage medical conditions Primary care physician: [employer]STIC[employer] USE MEDICAL COORDINATOR Hospitalization Condition: Good Hospital course: The patient was provided inpatient psychiatric treatment with safe and supportive environment, group/individual therapy, psychiatric medication, medication adjustment, adverse effect monitor, medical evaluation, medical treatment, social service assessment, social support meeting, placement assessment and psycho-education. The patients mood, cognition, behavior, motivation, compliance to treatment and appreciation on family/social support are improved and stabilized. At the time of discharge, the patient had no suicidal ideas, no homicidal ideas, no aggressive thoughts, no endangering behavior and no debilitating adverse effects. The patient agareed on the treatment plan, understood the risk, benefit, alternative treatment, potential consequence of no treatment, and gave informed consent. Disposition: DC-01 TO HOME OR SELFCARE Allergies/Adverse Reactions: Allergies acetaminophen [From Tylenol] Allergy (Verified 12/28/20 10:08) Rash aspirin Allergy (Verified 12/28/20 10:08) Unknown furosemide [From Lasix] Allergy (Verified 12/28/20 10:08) Rash Penicillins Allergy (Verified 12/28/20 10:08) Rash Vital Signs: Last Vital Signs Temp 97.9 F 01/02/21 08:22 Pulse 98 H 01/02/21 10:01 Resp 16 01/02/21 08:22 BP 117/85 01/02/21 10:01 Pulse Ox 98 01/02/21 08:22 Last Lab: Laboratory Last Values WBC 3.4 K/mm3 (4.5-11.0) L 12/30/20 07:09 RBC 4.66 M/mm3 (3.65-5.03) 12/30/20 07:09 Hgb 15.2 gm/dl (11.8-15.2) 12/30/20 07:09 Hct 44.6 % (35.5-45.6) 12/30/20 07:09 MCV 96 fl (84-94) H 12/30/20 07:09 MCH 33 pg (28-32) H 12/30/20 07:09 MCHC 34 % (32-34) 12/30/20 07:09 RDW 16.7 % (13.2-15.2) H 12/30/20 07:09 Plt Count 171 K/mm3 (140-440) 12/30/20 07:09 Sodium 141 mmol/L (137-145) 12/31/20 06:07 Potassium 3.7 mmol/L (3.6-5.0) 12/31/20 06:07 Chloride 103.5 mmol/L (98-107) 12/31/20 06:07 Carbon Dioxide 29 mmol/L (22-30) D 12/31/20 06:07 Anion Gap 12 mmol/L 12/31/20 06:07 BUN 14 mg/dL (9-20) 12/31/20 06:07 Creatinine 0.8 mg/dL (0.8-1.3) 12/31/20 06:07 Estimated GFR > 60 ml/min 12/31/20 06:07 BUN/Creatinine Ratio 18 % 12/31/20 06:07 Glucose 108 mg/dL (75-100) H 12/31/20 06:07 POC Glucose 89 mg/dL (70-105) 12/30/20 06:28 Hemoglobin A1c 5.8 % (4-6) 12/30/20 07:09 Calcium 8.8 mg/dL (8.4-10.2) 12/31/20 06:07 Triglycerides 133 mg/dL (2-149) 12/30/20 07:09 Cholesterol 184 mg/dL (50-199) 12/30/20 07:09 LDL Cholesterol Direct 119 mg/dL (50-130) 12/30/20 07:09 HDL Cholesterol 55 mg/dL (40-59) 12/30/20 07:09 Cholesterol/HDL Ratio 3.34 % 12/30/20 07:09 TSH 1.860 mlU/mL (0.270-4.200) 12/30/20 07:09 Core Measure Documentation - Palliative Care Palliative Care/ Comfort Measures: Not Applicable - Core Measures Any of the following diagnoses?: none Exam - Constitutional Vitals: Temp Pulse Resp BP Pulse Ox 97.9 F 98 H 16 117/85 98 01/02/21 08:22 01/02/21 10:01 01/02/21 08:22 01/02/21 10:01 01/02/21 08:22 General appearance: Present: no acute distress - EENT Eyes: Present: PERRL, EOM intact ENT: hearing intact, clear oral mucosa - Neck Neck: Present: supple, normal ROM - Respiratory Respiratory effort: normal - Abdominal General gastrointestinal: Present: deferred Male genitourinary: Present: deferred - Integumentary Integumentary: Present: clear, warm, dry Plan Activity: no restrictions Care Plan Goals: Goals: Maintain good and stable mental health. Plan of Treatment: The patient should be compliant with medications, not to use drugs and not to drink alcohol. The patient understands that if suicidal ideas, homicidal ideas, or any endangering thoughts arise, the patient should immediately seek for emergent assistance including but not limited to crisis hot line and emergency room. Follow up with outpatient Psychiatrist and PCP within 7 - 14 days of discharge. Follow up with: PRIMARY CARE,MD [Primary Care Provider] - 7 Days Prescriptions: Mirtazapine [Remeron 15mg TAB] 15 mg PO QHS #30 tab QUEtiapine [SEROquel] 100 mg PO QHS #30 tablet Sertraline [Zoloft] 25 mg PO QDAY #30 tablet
== END 2021-01-02 13:00 | disposition home or self-care (01) | DRG 885 ==
LOC: 3A 15:57 → UNDOADMIN 15:57 → 5A 18:32
PROVIDERS: ADMIT Psychiatry & Neurology Psychiatry; ATTEND Psychiatry & Neurology Psychiatry
DX: F20.9 Schizophrenia, unspecified (principal); K21.9 Gastro-esophageal reflux disease without esophagitis; G47.33 Obstructive sleep apnea (adult) (pediatric); J44.9 Chronic obstructive pulmonary disease, unspecified; N40.0 Benign prostatic hyperplasia without lower urinary tract symptoms; M10.9 Gout, unspecified; J45.909 Unspecified asthma, uncomplicated; F10.10 Alcohol abuse, uncomplicated; I11.0 Hypertensive heart disease with heart failure; F19.10 Other psychoactive substance abuse, uncomplicated; I50.22 Chronic systolic (congestive) heart failure; Z79.899 Other long term (current) drug therapy; Z79.891 Long term (current) use of opiate analgesic; Z56.0 Unemployment, unspecified; Z88.0 Allergy status to penicillin; Z88.8 Allergy status to other drugs, medicaments and biological substances; Z87.891 Personal history of nicotine dependence
CPT/HCPCS: 36415; 80048; 80061; 82962; 83036; 84443; 85027; G0378; J7512; Q0177

== ENCOUNTER 2021-01-17 20:03 | Emergency (ER) | payer MEDICAID ==
--- NOTE | 2021-01-17 20:54 | Event Note ---
ED Screening Note Date of service: 01/17/21 Time: 20:52 ED Screening Note: Pt c/o diffuse swelling, SOB, CP, and bilateral knee pain x 1 week hx of CHF-states compliance with meds This initial assessment/diagnostic orders/clinical plan/treatment(s) is/are subject to change based on patients health status, clinical progression and re- assessment by fellow clinical providers in the ED. Further treatment and workup at subsequent clinical providers discretion. Patient/guardian urged not to elope from the ED as their condition may be serious if not clinically assessed and managed. Initial orders include: labs ekg CXR
[2021-01-17 21:37] LABS: Basophils % (Auto) 0.6 % (0.0-1.8); Eosinophils # (Auto) 0.3 K/mm3 (0.0-0.4); Eosinophils % (Auto) 5.9 % (0.0-4.3); Hematocrit 42.9 % (35.5-45.6); Hemoglobin 14.9 gm/dl (11.8-15.2); Lymphocytes % (Auto) 42.1 % (13.4-35.0); Mean Corpuscular HGB Conc 35 % (32-34); Mean Corpuscular Volume 94 fl (84-94); Monocytes # (Auto) 0.6 K/mm3 (0.0-0.8); Monocytes % (Auto) 11.6 % (0.0-7.3); Platelet Count 233 K/mm3 (140-440); Red Blood Count 4.56 M/mm3 (3.65-5.03); Red Cell Distribution Width 16.5 % (13.2-15.2)
[2021-01-17 21:52] LABS: Alanine Aminotransferase 29 units/L (7-56); Albumin 4.4 g/dL (3.9-5); BUN/Creatinine Ratio 13; Blood Urea Nitrogen 10 mg/dL (9-20); Calcium 8.9 mg/dL (8.4-10.2); Hemolysis Index 9
--- NOTE | 2021-01-17 21:55 | XRay Report ---
CHEST 2 VIEWS INDICATION: chest pain, SOB, CHF. COMPARISON: 12/28/2011 FINDINGS: SUPPORT DEVICES: None. HEART: Within normal limits. LUNGS/PLEURA: No acute air space or interstitial disease. No pneumothorax. ADDITIONAL FINDINGS: None. IMPRESSION: 1. No acute findings. Signer Name: Eulogio Merida MD Signed: 01/17/2021 9:50 PM Workstation Name: [id number]
[2021-01-17] MEDS ORDERED: MORPHINE 4 MG/1 ML INJ IM ONE (23:59)
[2021-01-17] MEDS ORDERED: ONDANSETRON 4 MG/2 ML INJ IM ONE (23:59)
--- NOTE | 2021-01-18 00:03 | Emergency Department Report ---
ED General Adult HPI - General Chief complaint: Dyspnea/Respdistress Stated complaint: SWOLLEN KNEE/GOUT Time Seen by Provider: 01/17/21 20:51 Source: patient Mode of arrival: Ambulatory Limitations: No Limitations - History of Present Illness Initial comments: Patient is 55 years old male with history of hypertension, congestive heart failure and schizophrenia. Patient presented to the ER complaining of bilateral knee pain and swelling, bilateral hands and wrist pain and swelling and mild shortness of breath. Patient denied any chest pain, abdominal pain, nausea or vomiting. No fever or chills. - Related Data Home Medications Medication Instructions Recorded Confirmed Last Taken Amlodipine Besylate [Norvasc] 10 mg PO QDAY 09/05/20 12/29/20 Unknown hydroCHLOROthiazide [Hctz] 25 mg PO QDAY 09/05/20 12/29/20 Unknown risperiDONE [RisperDAL] 1 mg PO BID 09/06/20 12/29/20 Unknown amLODIPine 10 mg PO DAILY 12/28/20 12/29/20 Unknown Previous Rx's Medication Instructions Recorded Last Taken Type Tamsulosin [Flomax] 0.4 mg PO DAILY #30 capsule 05/13/19 Unknown Rx allopurinoL [Zyloprim] 100 mg PO QDAY #30 tablet 05/13/19 2 Days Ago Rx ~11/14/19 Bumetanide [Bumex 1 mg tab] 1 mg PO BID #60 tab 12/29/20 Unknown Rx Potassium Chloride [K-Dur] 20 meq PO BID #30 tab 12/29/20 Unknown Rx Mirtazapine [Remeron 15mg TAB] 15 mg PO QHS #30 tab 01/02/21 Unknown Rx QUEtiapine [SEROquel] 100 mg PO QHS #30 tablet 01/02/21 Unknown Rx Sertraline [Zoloft] 25 mg PO QDAY #30 tablet 01/02/21 Unknown Rx Allergies Allergy/AdvReac Type Severity Reaction Status Date / Time acetaminophen [From Tylenol] Allergy Rash Verified 12/28/20 10:08 aspirin Allergy Unknown Verified 12/28/20 10:08 furosemide [From Lasix] Allergy Rash Verified 12/28/20 10:08 Penicillins Allergy Rash Verified 12/28/20 10:08 ED Review of Systems ROS: Stated complaint: SWOLLEN KNEE/GOUT Other details as noted in HPI Comment: All other systems reviewed and negative Constitutional: denies: chills, fever Respiratory: shortness of breath. denies: cough, SOB with exertion, SOB at rest, wheezing Cardiovascular: denies: chest pain, palpitations Musculoskeletal: joint swelling, arthralgia. denies: back pain Neurological: denies: headache, weakness, numbness, paresthesias, confusion, abnormal gait ED Past Medical Hx - Past Medical History Previous Medical History?: Yes Hx Hypertension: Yes Hx Congestive Heart Failure: Yes Hx Seizures: Yes (Seizure) Hx Psychiatric Treatment: Yes (Schizophrenia) Hx Asthma: Yes Additional medical history: BPH, GOUT - Surgical History Past Surgical History?: Yes Additional Surgical History: Right forearm tendon repair, right lower extremity tendon repair - Social History Smoking Status: Never Smoker Substance Use Type: None - Medications Home Medications: Home Medications Medication Instructions Recorded Confirmed Last Taken Type Tamsulosin [Flomax] 0.4 mg PO DAILY #30 capsule 05/13/19 12/29/20 Unknown Rx allopurinoL [Zyloprim] 100 mg PO QDAY #30 tablet 05/13/19 12/29/20 2 Days Ago Rx ~11/14/19 Amlodipine Besylate [Norvasc] 10 mg PO QDAY 09/05/20 12/29/20 Unknown History hydroCHLOROthiazide [Hctz] 25 mg PO QDAY 09/05/20 12/29/20 Unknown History risperiDONE [RisperDAL] 1 mg PO BID 09/06/20 12/29/20 Unknown History amLODIPine 10 mg PO DAILY 12/28/20 12/29/20 Unknown History Bumetanide [Bumex 1 mg tab] 1 mg PO BID #60 tab 12/29/20 12/29/20 Unknown Rx Potassium Chloride [K-Dur] 20 meq PO BID #30 tab 12/29/20 12/29/20 Unknown Rx Mirtazapine [Remeron 15mg TAB] 15 mg PO QHS #30 tab 01/02/21 Unknown Rx QUEtiapine [SEROquel] 100 mg PO QHS #30 tablet 01/02/21 Unknown Rx Sertraline [Zoloft] 25 mg PO QDAY #30 tablet 01/02/21 Unknown Rx ED Physical Exam - General Limitations: No Limitations General appearance: alert, in no apparent distress - Head Head exam: Present: atraumatic, normocephalic, normal inspection - Eye Eye exam: Present: normal appearance, PERRL - ENT ENT exam: Present: normal exam, normal orophraynx, mucous membranes moist - Neck Neck exam: Present: normal inspection, full ROM. Absent: tenderness, meningismus - Respiratory Respiratory exam: Present: normal lung sounds bilaterally - Cardiovascular Cardiovascular Exam: Present: regular rate, normal rhythm, normal heart sounds - GI/Abdominal GI/Abdominal exam: Present: soft. Absent: distended, tenderness, guarding, rebound, rigid - Extremities Exam Extremities exam: Absent: pedal edema, calf tenderness - Back Exam Back exam: Present: normal inspection, full ROM. Absent: CVA tenderness (R), CVA tenderness (L) - Neurological Exam Neurological exam: Present: alert, oriented X3, CN II-XII intact - Psychiatric Psychiatric exam: Present: normal mood. Absent: suicidal ideation - Skin Skin exam: Present: warm, intact, normal color ED Course Vital Signs 01/17/21 20:50 Temperature 98.1 F Pulse Rate 85 Respiratory 20 Rate Blood Pressure 148/97 O2 Sat by Pulse 96 Oximetry ED Medical Decision Making - Lab Data Result diagrams: 01/17/21 21:16 01/17/21 21:16 - EKG Data -: EKG Interpreted by Ia EKG shows normal: sinus rhythm Rate: normal - EKG Data Interpretation: no acute changes - Radiology Data Radiology results: report reviewed - Medical Decision Making Patient is 55 years old male with history of hypertension, congestive heart failure and schizophrenia. Patient presented to the ER complaining of bilateral knee pain and swelling, bilateral hands and wrist pain and swelling and mild shortness of breath. Patient denied any chest pain, abdominal pain, nausea or vomiting. No fever or chills. Labs reviewed and is unremarkable. Chest x-ray is negative for acute finding. No clinical evidence of CHF exacerbation. Patient has osteoarthritis exacerbation. Patient received morphine and Zofran. Patient given prescription for tramadol and Zofran and advised to follow-up with his primary care physician in the next 2 to 3 days and to return to the ER if he develop any new symptoms. Critical care attestation.: If time is entered above; I have spent that time in minutes in the direct care of this critically ill patient, excluding procedure time. ED Disposition Clinical Impression: Shortness of breath, Acute pain, Osteoarthritis Disposition: TO HOME OR SELFCARE Is pt being admited?: No Condition: Stable Instructions: Shortness of Breath, Adult, [id number] Referrals: WILBUR JAY MD [Staff Physician] - 3-5 Days
[2021-01-18 01:05] VITALS: BP 112/60
== END 2021-01-18 01:05 | disposition home or self-care (01) ==
LOC: ED 20:03
DX: M17.0 Bilateral primary osteoarthritis of knee (principal); R06.02 Shortness of breath; I11.0 Hypertensive heart disease with heart failure; I50.9 Heart failure, unspecified; F20.9 Schizophrenia, unspecified; R56.9 Unspecified convulsions; J45.909 Unspecified asthma, uncomplicated; Z98.890 Other specified postprocedural states; Z79.899 Other long term (current) drug therapy; Z88.8 Allergy status to other drugs, medicaments and biological substances
CPT/HCPCS: 36415; 71046; 80053; 83880; 84484; 85025; 93005; 96372; 99284; J2270; J2405

== ENCOUNTER 2021-04-01 08:43 | Emergency (ER) | payer MEDICAID ==
[2021-04-01 08:56] VITALS: BP 127/90
--- NOTE | 2021-04-01 09:54 | Emergency Department Report ---
ED Recheck HPI - General Chief Complaint: Medical Clearance Stated Complaint: MED REFILL Time Seen by Provider: 04/01/21 09:51 Source: patient Mode of arrival: Ambulatory Limitations: No Limitations - History of Present Illness Initial Comments: Patient is a pleasant 55-year-old male that comes to the emergency room requesting a med refill. He states that due to Covid he is not been able to get an appointment with his primary care until next month. I have explained to patient that I would give him a one-time courtesy refill but that if he comes to the ER again they will decline him his medications. I have explained to him appropriate use of the ER and PCP for his medication needs. MD Complaint: medication refill request Returns Today for: other - Related Data Previous Rx's Medication Instructions Recorded Last Taken Type Albuterol Mdi (or & Nicu Only) 2 puff IH QID PRN #1 inhalation 04/01/21 Unknown Rx [ProAir HFA Inhaler] Potassium Chloride [K-Dur] 20 meq PO BID #30 tab 04/01/21 Unknown Rx QUEtiapine [SEROquel] 100 mg PO QHS #30 tablet 04/01/21 Unknown Rx Sertraline [Zoloft] 25 mg PO QDAY #30 tablet 04/01/21 Unknown Rx Tamsulosin [Flomax] 0.4 mg PO DAILY #30 capsule 04/01/21 Unknown Rx amLODIPine 10 mg PO DAILY #30 04/01/21 Unknown Rx hydroCHLOROthiazide [Hctz] 25 mg PO QDAY #30 cap 04/01/21 Unknown Rx Allergies Allergy/AdvReac Type Severity Reaction Status Date / Time acetaminophen [From Tylenol] Allergy Rash Verified 12/28/20 10:08 aspirin Allergy Unknown Verified 12/28/20 10:08 furosemide [From Lasix] Allergy Rash Verified 12/28/20 10:08 Penicillins Allergy Rash Verified 12/28/20 10:08 ED Review of Systems ROS: Stated complaint: MED REFILL Other details as noted in HPI Comment: All other systems reviewed and negative ED Past Medical Hx - Past Medical History Previous Medical History?: Yes Hx Hypertension: Yes Hx Congestive Heart Failure: Yes Hx Seizures: Yes (Seizure) Hx Psychiatric Treatment: Yes (Schizophrenia) Hx Asthma: Yes Additional medical history: BPH, GOUT - Surgical History Past Surgical History?: Yes Additional Surgical History: Right forearm tendon repair, right lower extremity tendon repair - Family History Family history: no significant - Social History Smoking Status: Never Smoker Substance Use Type: Alcohol - Medications Home Medications: Home Medications Medication Instructions Recorded Confirmed Last Taken Type Albuterol Mdi (or & Nicu Only) 2 puff IH QID PRN #1 inhalation 04/01/21 Unknown Rx [ProAir HFA Inhaler] Potassium Chloride [K-Dur] 20 meq PO BID #30 tab 04/01/21 Unknown Rx QUEtiapine [SEROquel] 100 mg PO QHS #30 tablet 04/01/21 Unknown Rx Sertraline [Zoloft] 25 mg PO QDAY #30 tablet 04/01/21 Unknown Rx Tamsulosin [Flomax] 0.4 mg PO DAILY #30 capsule 04/01/21 Unknown Rx amLODIPine 10 mg PO DAILY #30 04/01/21 Unknown Rx hydroCHLOROthiazide [Hctz] 25 mg PO QDAY #30 cap 04/01/21 Unknown Rx ED Physical Exam - General Limitations: No Limitations General appearance: alert, in no apparent distress - Head Head exam: Present: atraumatic, normocephalic - Eye Eye exam: Present: normal appearance - ENT ENT exam: Present: mucous membranes moist - Neck Neck exam: Present: normal inspection - Respiratory Respiratory exam: Present: normal lung sounds bilaterally. Absent: respiratory distress - Cardiovascular Cardiovascular Exam: Present: regular rate, normal rhythm. Absent: systolic murmur, diastolic murmur, rubs, gallop - GI/Abdominal GI/Abdominal exam: Present: soft, normal bowel sounds - Rectal Rectal exam: Present: deferred - Extremities Exam Extremities exam: Present: normal inspection - Back Exam Back exam: Present: normal inspection - Neurological Exam Neurological exam: Present: alert, oriented X3 - Psychiatric Psychiatric exam: Present: normal affect, normal mood, other (No HI no SI). Absent: depressed, agitated, anxious, flat affect, manic, homicidal ideation, suicidal ideation - Skin Skin exam: Present: warm, dry, intact, normal color. Absent: rash ED Course Vital Signs 04/01/21 08:53 Temperature 98.7 F Pulse Rate 90 Respiratory 18 Rate Blood Pressure 127/90 O2 Sat by Pulse 92 Oximetry ED Recheck MDM - Core Measures Measure Exclusions: not indicated - Differential Diagnosis Prescription Refill(s) - Medical Decision Making med refill only Patient verbalizes understanding of the need to see primary care for his medications. He should not use the ER for this and. He verbalizes understanding. Vital Signs 04/01/21 08:53 Temperature 98.7 F Pulse Rate 90 Respiratory 18 Rate Blood Pressure 127/90 O2 Sat by Pulse 92 Oximetry Critical care attestation.: If time is entered above; I have spent that time in minutes in the direct care of this critically ill patient, excluding procedure time. ED Disposition Clinical Impression: Medication refill Disposition: - TO HOME OR SELFCARE Is pt being admited?: No Does the pt Need Aspirin: No Condition: Stable Additional Instructions: follow up with pcp rambo referral below Prescriptions: QUEtiapine [SEROquel] 100 mg PO QHS #30 tablet amLODIPine 10 mg PO DAILY #30 Tamsulosin [Flomax] 0.4 mg PO DAILY #30 capsule hydroCHLOROthiazide [Hctz] 25 mg PO QDAY #30 cap Potassium Chloride [K-Dur] 20 meq PO BID #30 tab Albuterol Mdi (or & Nicu Only) [ProAir HFA Inhaler] 2 puff IH QID PRN #1 inhalation PRN Reason: Shortness Of Breath Sertraline [Zoloft] 25 mg PO QDAY #30 tablet Referrals: YAJAIRA MICHELLE MD [Staff Physician] - 3-5 Days Time of Disposition: 09:53
== END 2021-04-01 10:04 | disposition home or self-care (01) ==
LOC: ED 08:43
DX: F20.9 Schizophrenia, unspecified (principal); Z76.0 Encounter for issue of repeat prescription; I11.0 Hypertensive heart disease with heart failure; I50.9 Heart failure, unspecified; R56.9 Unspecified convulsions; J45.909 Unspecified asthma, uncomplicated; Z98.890 Other specified postprocedural states; Z79.899 Other long term (current) drug therapy; Z88.0 Allergy status to penicillin; Z88.8 Allergy status to other drugs, medicaments and biological substances
CPT/HCPCS: 99282

== ENCOUNTER 2021-04-28 14:45 | Emergency (ER) | payer MEDICAID ==
[2021-04-28 17:08] VITALS: BP 143/95
--- NOTE | 2021-04-28 18:47 | XRay Report ---
CHEST 2 VIEWS INDICATION / CLINICAL INFORMATION: cp. Chest pain FINDINGS: SUPPORT DEVICES: None. HEART / MEDIASTINUM: No significant abnormality. LUNGS / PLEURA: No significant pulmonary or pleural abnormality. No pneumothorax. ADDITIONAL FINDINGS: No significant additional findings. IMPRESSION: 1. No acute findings. Signer Name: Aaron Robertson MD Signed: 04/28/2021 6:43 PM Workstation Name: [id number]
--- NOTE | 2021-04-28 20:50 | Emergency Department Report ---
ED General Adult HPI - General Chief complaint: Dyspnea/Respdistress Stated complaint: COUGH/CONGESTION Time Seen by Provider: 04/28/21 17:26 Source: patient Mode of arrival: Ambulatory Limitations: No Limitations - History of Present Illness Initial comments: 55-year-old F Mont[place] male presents emerge department complaining of a 1 week history of cough, congestion and coryza with mucus production mucus production and chills with reports no palpitations no nausea, no vomiting. Reports no foreign travel no loss of bowel or bladder no no abdominal pain. Does get vague discomfort to the upper chest with coughing spells. -: Gradual Location: chest Radiation: non-radiation Quality: aching Improves with: none Associated Symptoms: cough, fever/chills. denies: headaches, loss of appetite, malaise, nausea/vomiting, rash, shortness of breath, syncope, weakness - Related Data Previous Rx's Medication Instructions Recorded Last Taken Type Albuterol Mdi (or & Nicu Only) 2 puff IH QID PRN #1 inhalation 04/01/21 Unknown Rx [ProAir HFA Inhaler] Potassium Chloride [K-Dur] 20 meq PO BID #30 tab 04/01/21 Unknown Rx QUEtiapine [SEROquel] 100 mg PO QHS #30 tablet 04/01/21 Unknown Rx Sertraline [Zoloft] 25 mg PO QDAY #30 tablet 04/01/21 Unknown Rx Tamsulosin [Flomax] 0.4 mg PO DAILY #30 capsule 04/01/21 Unknown Rx amLODIPine 10 mg PO DAILY #30 04/01/21 Unknown Rx hydroCHLOROthiazide [Hctz] 25 mg PO QDAY #30 cap 04/01/21 Unknown Rx Albuterol Mdi (or & Nicu Only) 1 puff IH Q4-6H PRN #1 inha 04/28/21 Unknown Rx [ProAir HFA Inhaler] Azithromycin [Zithromax] 500 mg PO QDAY #5 tablet 04/28/21 Unknown Rx Benzonatate [Tessalon Perles] 100 mg PO Q8HR #20 capsule 04/28/21 Unknown Rx Allergies Allergy/AdvReac Type Severity Reaction Status Date / Time acetaminophen [From Tylenol] Allergy Rash Verified 12/28/20 10:08 aspirin Allergy Unknown Verified 12/28/20 10:08 furosemide [From Lasix] Allergy Rash Verified 12/28/20 10:08 Penicillins Allergy Rash Verified 12/28/20 10:08 ED Review of Systems ROS: Stated complaint: COUGH/CONGESTION Other details as noted in HPI Comment: All other systems reviewed and negative ED Past Medical Hx - Past Medical History Previous Medical History?: Yes Hx Hypertension: Yes Hx Congestive Heart Failure: Yes Hx Seizures: Yes (Seizure) Hx Psychiatric Treatment: Yes (Schizophrenia) Hx Asthma: Yes Additional medical history: BPH, GOUT - Surgical History Past Surgical History?: Yes Additional Surgical History: Right forearm tendon repair, right lower extremity tendon repair - Social History Smoking Status: Never Smoker Substance Use Type: Alcohol - Medications Home Medications: Home Medications Medication Instructions Recorded Confirmed Last Taken Type Albuterol Mdi (or & Nicu Only) 2 puff IH QID PRN #1 inhalation 04/01/21 Unknown Rx [ProAir HFA Inhaler] Potassium Chloride [K-Dur] 20 meq PO BID #30 tab 04/01/21 Unknown Rx QUEtiapine [SEROquel] 100 mg PO QHS #30 tablet 04/01/21 Unknown Rx Sertraline [Zoloft] 25 mg PO QDAY #30 tablet 04/01/21 Unknown Rx Tamsulosin [Flomax] 0.4 mg PO DAILY #30 capsule 04/01/21 Unknown Rx amLODIPine 10 mg PO DAILY #30 04/01/21 Unknown Rx hydroCHLOROthiazide [Hctz] 25 mg PO QDAY #30 cap 04/01/21 Unknown Rx Albuterol Mdi (or & Nicu Only) 1 puff IH Q4-6H PRN #1 inha 04/28/21 Unknown Rx [ProAir HFA Inhaler] Azithromycin [Zithromax] 500 mg PO QDAY #5 tablet 04/28/21 Unknown Rx Benzonatate [Tessalon Perles] 100 mg PO Q8HR #20 capsule 04/28/21 Unknown Rx ED Physical Exam - General Limitations: No Limitations General appearance: alert, in no apparent distress - Head Head exam: Present: atraumatic, normocephalic - Eye Eye exam: Present: normal appearance - ENT ENT exam: Present: mucous membranes moist - Neck Neck exam: Present: normal inspection - Respiratory Respiratory exam: Present: normal lung sounds bilaterally, rhonchi. Absent: respiratory distress, chest wall tenderness, accessory muscle use, prolonged expiratory - Cardiovascular Cardiovascular Exam: Present: regular rate, normal rhythm. Absent: systolic murmur, diastolic murmur, rubs, gallop - GI/Abdominal GI/Abdominal exam: Present: soft, normal bowel sounds - Rectal Rectal exam: Present: deferred - Extremities Exam Extremities exam: Present: normal inspection - Back Exam Back exam: Present: normal inspection - Neurological Exam Neurological exam: Present: alert, oriented X3 - Psychiatric Psychiatric exam: Present: normal affect, normal mood - Skin Skin exam: Present: warm, dry, intact, normal color. Absent: rash ED Course Vital Signs 04/28/21 17:07 Temperature 99.8 F H Pulse Rate 109 H Respiratory 20 Rate Blood Pressure 143/95 O2 Sat by Pulse 96 Oximetry ED Medical Decision Making - EKG Data EKG shows normal: sinus rhythm Rate: normal - EKG Data Interpretation: normal EKG (Heart rate 97 no J-point elevation no ST segment changes) - Radiology Data Radiology results: report reviewed - Medical Decision Making [address] [place] [address] XRay Report Signed Patient: DARIUSZ PINEDO MR#: [id number] 8 : 1965 Acct:[id number] Age/Sex: 55 / M ADM Date: 04/28/21 Loc: ED Attending Dr: Ordering Physician: BREE LANIER Date of Service: 04/28/21 Procedure(s): XR chest routine 2V Accession Number(s): [id number] cc: BREE LANIER Fluoro Time In Minutes: CHEST 2 VIEWS INDICATION / CLINICAL INFORMATION: cp. Chest pain FINDINGS: SUPPORT DEVICES: None. HEART / MEDIASTINUM: No significant abnormality. LUNGS / PLEURA: No significant pulmonary or pleural abnormality. No pneumothorax. ADDITIONAL FINDINGS: No significant additional findings. IMPRESSION: 1. No acute findings. Signer Name: Aaron Robertson MD Signed: 04/28/2021 6:43 PM Workstation Name: [id number] Transcribed By: BC Dictated By: Aaron Robertson MD Electronically Authenticated By: Aaron Robertson MD Signed Date/Time: 04/28/211842 DD/ 41 TD/TT: Print Critical care attestation.: If time is entered above; I have spent that time in minutes in the direct care of this critically ill patient, excluding procedure time. ED Disposition Clinical Impression: Bronchitis, Cough Disposition: DC-01 TO HOME OR SELFCARE Is pt being admited?: No Does the pt Need Aspirin: No Condition: Stable Instructions: Chronic Bronchitis (ED) Prescriptions: RX: Albuterol Mdi (or & Nicu Only) [ProAir HFA Inhaler] 1 puff IH Q4-6H PRN #1 inha PRN Reason: Cough Benzonatate [Tessalon Perles] 100 mg PO Q8HR #20 capsule Azithromycin [Zithromax] 500 mg PO QDAY #5 tablet
[2021-04-28] MEDS ORDERED: ALBUTEROL 2.5 MG/3 ML NEBU IH ONE (21:05)
[2021-04-28] MEDS ORDERED: predniSONE 50 MG TAB PO STA (21:05)
--- NOTE | 2021-05-01 19:12 | Electrocardiograph Report ---
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
== END 2021-04-28 22:00 | disposition home or self-care (01) ==
LOC: ED 14:45
DX: J40 Bronchitis, not specified as acute or chronic (principal); R05 Cough; I11.0 Hypertensive heart disease with heart failure; I50.9 Heart failure, unspecified; R56.9 Unspecified convulsions; F20.9 Schizophrenia, unspecified; Z98.890 Other specified postprocedural states; Z79.2 Long term (current) use of antibiotics; Z79.899 Other long term (current) drug therapy; Z88.0 Allergy status to penicillin; Z88.8 Allergy status to other drugs, medicaments and biological substances
CPT/HCPCS: 71046; 93005; 94640; 99283; J7512

== ENCOUNTER 2021-08-18 23:45 | Emergency (ER) | payer MEDICAID ==
--- NOTE | 2021-08-19 00:47 | Emergency Department Report ---
ED Psych HPI - General Chief Complaint: Psych Stated Complaint: MENTAL HEALTH Time Seen by Provider: 08/19/21 00:44 Source: patient Mode of arrival: Ambulatory - History of Present Illness Initial Comments: Patient is 56 years old male with history of paranoid schizophrenia. Patient presented to the ER stating that he is hearing voices and seeing things that other people do not see. Patient stated that he is very paranoid and feel that he will are trying to get him. Patient also admitted drinking alcohol and using drugs. Patient stated that he is suicidal and he usually do self-inflicted wounds. MD Complaint: suicidal ideation, feels depressed -: days(s) Associated Psychiatric Symptoms: depression, suicidal ideation, homicidal ideation, racing thoughts, auditory hallucinations, visual hallucinations Quality: constant Associated Symptoms: denies other symptoms Treatments Prior to Arrival: none If Self Harm: admits thoughts of, self-inflicted trauma - Related Data Previous Rx's Medication Instructions Recorded Last Taken Type Albuterol Mdi (or & Nicu Only) 2 puff IH QID PRN #1 inhalation 04/01/21 Unknown Rx [ProAir HFA Inhaler] Potassium Chloride [K-Dur] 20 meq PO BID #30 tab 04/01/21 Unknown Rx QUEtiapine [SEROquel] 100 mg PO QHS #30 tablet 04/01/21 Unknown Rx Sertraline [Zoloft] 25 mg PO QDAY #30 tablet 04/01/21 Unknown Rx Tamsulosin [Flomax] 0.4 mg PO DAILY #30 capsule 04/01/21 Unknown Rx amLODIPine 10 mg PO DAILY #30 04/01/21 Unknown Rx hydroCHLOROthiazide [Hctz] 25 mg PO QDAY #30 cap 04/01/21 Unknown Rx Albuterol Mdi (or & Nicu Only) 1 puff IH Q4-6H PRN #1 inha 04/28/21 Unknown Rx [ProAir HFA Inhaler] Azithromycin [Zithromax] 500 mg PO QDAY #5 tablet 04/28/21 Unknown Rx Benzonatate [Tessalon Perles] 100 mg PO Q8HR #20 capsule 04/28/21 Unknown Rx Allergies Allergy/AdvReac Type Severity Reaction Status Date / Time acetaminophen [From Tylenol] Allergy Rash Verified 12/28/20 10:08 aspirin Allergy Unknown Verified 12/28/20 10:08 furosemide [From Lasix] Allergy Rash Verified 02/14/21 10:08 Penicillins Allergy Rash Verified 12/28/20 10:08 ED Review of Systems ROS: Stated complaint: MENTAL HEALTH Other details as noted in HPI Comment: All other systems reviewed and negative Constitutional: denies: chills, fever Respiratory: denies: cough, shortness of breath, SOB with exertion Cardiovascular: denies: chest pain, palpitations Gastrointestinal: denies: abdominal pain, nausea, vomiting Neurological: denies: headache, weakness, numbness, paresthesias, confusion Psychiatric: anxiety, auditory hallucinations, visual hallucinations, homicidal thoughts, suicidal thoughts ED Past Medical Hx - Past Medical History Previous Medical History?: Yes Hx Hypertension: Yes Hx Congestive Heart Failure: Yes Hx Seizures: Yes (Seizure) Hx Psychiatric Treatment: Yes (Schizophrenia) Hx Asthma: Yes Additional medical history: BPH, GOUT - Surgical History Past Surgical History?: Yes Additional Surgical History: Right forearm tendon repair, right lower extremity tendon repair - Social History Smoking Status: Never Smoker Substance Use Type: Alcohol - Medications Home Medications: Home Medications Medication Instructions Recorded Confirmed Last Taken Type Albuterol Mdi (or & Nicu Only) 2 puff IH QID PRN #1 inhalation 04/01/21 08/19/21 Unknown Rx [ProAir HFA Inhaler] Potassium Chloride [K-Dur] 20 meq PO BID #30 tab 04/01/21 08/19/21 Unknown Rx QUEtiapine [SEROquel] 100 mg PO QHS #30 tablet 04/01/21 08/19/21 Unknown Rx Sertraline [Zoloft] 25 mg PO QDAY #30 tablet 04/01/21 08/19/21 Unknown Rx Tamsulosin [Flomax] 0.4 mg PO DAILY #30 capsule 04/01/21 08/19/21 Unknown Rx amLODIPine 10 mg PO DAILY #30 04/01/21 08/19/21 Unknown Rx hydroCHLOROthiazide [Hctz] 25 mg PO QDAY #30 cap 04/01/21 08/19/21 Unknown Rx Albuterol Mdi (or & Nicu Only) 1 puff IH Q4-6H PRN #1 inha 04/28/21 08/19/21 Unknown Rx [ProAir HFA Inhaler] Azithromycin [Zithromax] 500 mg PO QDAY #5 tablet 04/28/21 08/23/21 Unknown Rx Benzonatate [Tessalon Perles] 100 mg PO Q8HR #20 capsule 04/28/21 08/19/21 Unknown Rx ED Physical Exam - General Limitations: No Limitations General appearance: alert, in no apparent distress, anxious - Head Head exam: Present: atraumatic, normocephalic, normal inspection - Eye Eye exam: Present: normal appearance, PERRL - ENT ENT exam: Present: normal exam, normal orophraynx, mucous membranes moist - Neck Neck exam: Present: normal inspection, full ROM. Absent: tenderness, meningismus - Respiratory Respiratory exam: Present: normal lung sounds bilaterally - Cardiovascular Cardiovascular Exam: Present: regular rate, normal rhythm, normal heart sounds - GI/Abdominal GI/Abdominal exam: Present: soft, normal bowel sounds. Absent: distended, tenderness, guarding, rebound, rigid, mass, bruit, pulsatile mass, hernia - Extremities Exam Extremities exam: Present: normal inspection, full ROM, normal capillary refill. Absent: pedal edema, calf tenderness - Back Exam Back exam: Present: normal inspection, full ROM. Absent: CVA tenderness (R), CVA tenderness (L) - Neurological Exam Neurological exam: Present: alert, oriented X3, CN II-XII intact, normal gait, reflexes normal - Psychiatric Psychiatric exam: Present: anxious, homicidal ideation, suicidal ideation. Absent: depressed, agitated - Skin Skin exam: Present: warm, intact, normal color ED Course Vital Signs 08/19/21 08/19/21 08/19/21 00:11 00:45 03:33 Temperature 98.7 F 98.7 F Pulse Rate 95 H 98 H 97 H Respiratory 18 18 18 Rate Blood Pressure 154/86 Blood Pressure 144/108 146/96 [Left] O2 Sat by Pulse 96 97 96 Oximetry 08/19/21 07:58 Temperature 98.6 F Pulse Rate 90 Respiratory 16 Rate Blood Pressure Blood Pressure 148/98 [Left] O2 Sat by Pulse 95 Oximetry ED Medical Decision Making - Lab Data Result diagrams: 08/19/21 00:56 08/19/21 00:56 Critical care attestation.: If time is entered above; I have spent that time in minutes in the direct care of this critically ill patient, excluding procedure time. ED Disposition Clinical Impression: Suicidal ideation Disposition: [address] [place] [address] Is pt being admited?: No Condition: Stable Referrals: PRIMARY CARE, [Primary Care Provider] - 3-5 Days
[2021-08-19 01:13] LABS: Bilirubin,Urine NEG (Negative); Blood,Urine MOD (Negative); Color,Urine Yellow (Yellow); Mucus,Urine FEW /HPF
[2021-08-19 01:15] LABS: Amphetamine Screen,Urine PRESUMPTIVE NEGATIVE; Benzodiazepines Screen,Urine PRESUMPTIVE NEGATIVE; Cannabinoid Screen,Urine PRESUMPTIVE POSITIVE; Cocaine Screen,Urine PRESUMPTIVE POSITIVE; Methadone Screen,Urine PRESUMPTIVE NEGATIVE; Opiate Screen,Urine PRESUMPTIVE NEGATIVE
[2021-08-19 01:40] LABS: Eosinophils # (Auto) 0.1 K/mm3 (0.0-0.4); Eosinophils % (Auto) 1.9 % (0.0-4.3); Hematocrit 43.3 % (35.5-45.6); Hemoglobin 15.1 gm/dl (11.8-15.2); Lymphocytes # (Auto) 1.8 K/mm3 (1.2-5.4); Lymphocytes % (Auto) 40.3 % (13.4-35.0); Mean Corpuscular HGB Conc 35 % (32-34); Mean Corpuscular Volume 101 fl (84-94); Monocytes # (Auto) 0.6 K/mm3 (0.0-0.8); Monocytes % (Auto) 12.8 % (0.0-7.3); Platelet Count 189 K/mm3 (140-440); Red Blood Count 4.28 M/mm3 (3.65-5.03); Red Cell Distribution Width 16.8 % (13.2-15.2)
[2021-08-19 01:46] LABS: BUN/Creatinine Ratio 7; Blood Urea Nitrogen 6 mg/dL (9-20); Calcium 9.2 mg/dL (8.4-10.2); Hemolysis Index 4
[2021-08-19] MEDS ORDERED: HALOPERIDOL LACTATE 5 MG/1 ML INJ IM ONE (07:44)
[2021-08-19] MEDS ORDERED: HALOPERIDOL LACTATE 5 MG/1 ML INJ ONE (07:45)
[2021-08-19 07:59] VITALS: BP 148/98
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
--- NOTE | 2021-08-19 11:08 | Event Note ---
Date: 08/19/21 Patient is medically cleared at this time. Patient was seen by mental health assessment team and is to continue as of 1013. Patient was alcohol and cocaine positive. Patient likely will need additional assessments after reaching sobriety. Assessment and Plan (1) Schizophrenia-F20.9 Current Visit: Yes Status: Acute Continue 1013 Zyprexa 10 mg po BID The patient to comply with previously prescribed medications Risks, benefits and alternatives of medications discussed with the patient, questions answered and consent obtained from patient. PSYCHOTHERAPY: Supportive psychotherapy provided MEDICAL: Per primary team DELIRIUM PRECAUTIONS: Please re-orient patient frequently, keep lights on during the day, and minimize benzodiazepines and opiates as these medications could worsen patient's confusion. PATIENT ATTENDANT: Defer to primary DISPOSITION: Recommend acute inpatient psychiatric hospitalization at this time. FOLLOW-UP: Will follow. Post hospital care: primary care provider, psychiatric provider Case staffed with Dr. Amaya
== END 2021-08-19 16:27 ==
LOC: ED 23:45
DX: R45.851 Suicidal ideations (principal); R44.0 Auditory hallucinations; R44.1 Visual hallucinations; Z20.822 Contact with and (suspected) exposure to COVID-19; J45.909 Unspecified asthma, uncomplicated; Z86.79 Personal history of other diseases of the circulatory system; I10 Essential (primary) hypertension; Z88.6 Allergy status to analgesic agent; Z88.0 Allergy status to penicillin; Z88.8 Allergy status to other drugs, medicaments and biological substances; F10.20 Alcohol dependence, uncomplicated
CPT/HCPCS: 36415; 80048; 80307; 80320; 81001; 85025; G0480; J1630; U0003

== ENCOUNTER 2021-08-19 14:06 | Inpatient (IN) | payer MEDICAID ==
[2021-08-19] MEDS ORDERED: ALBUTEROL 8.5 GM MDI INHALATION IH PRN ×2 (15:01)
[2021-08-19] MEDS: POTASSIUM CHLORIDE ER 20 MEQ TAB PO SCH (21:54)
[2021-08-19] MEDS: QUEtiapine 100 MG TAB PO SCH (21:54)
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
[2021-08-20] MEDS: SERTRALINE 25 MG TAB PO SCH (10:38)
[2021-08-20] MEDS: hydroCHLOROthiazide 25 MG TAB PO SCH (10:38)
[2021-08-20] MEDS: amLODIPine 10 MG TAB PO SCH (10:38)
[2021-08-20] MEDS: POTASSIUM CHLORIDE ER 20 MEQ TAB PO SCH ×2 (10:38→21:40)
[2021-08-20 12:07] LABS: Hepatitis C Virus Antibody Non-Reactive (NonReactive)
[2021-08-20 12:17] LABS: Hepatitis B Surface Antigen Nonreactive (Negative)
[2021-08-20] MEDS: IBUPROFEN 200 MG TAB PO PRN ×2 (14:56→22:46)
[2021-08-20] MEDS: TAMSULOSIN 0.4 MG CAP PO SCH (14:57)
[2021-08-20] MEDS: QUEtiapine 100 MG TAB PO SCH (21:40)
--- NOTE | 2021-08-21 09:26 | Progress Note ---
Subjective Date of service: 08/21/21 Principal diagnosis: schizophrenia Subjective Comment: The patient was seen today, he says he is depressed and having a lot of medical conditions since being here. He says "my blood pressure is up and it's been something every day." He says he's suicidal with a lot of anxiety. He denies a plan. He denies hallucinations of any kind. REVIEW OF SYSTEMS Constitutional: Negative for weight loss ENT: Negative for stridor Respiratory: Negative for cough or hemoptysis All other systems reviewed and are negative MENTAL STATUS EXAMINATION General Appearance and Behavior: Age appropriate, good hygiene, wearing appropriate clothes. Cooperation: cooperative Psychomotor Behavior: Psychomotor normal Mood:Depressed/irritable Affect and affective range: Incongruent with stated mood Thought Process: Tangential Thought Content: Suicidal Speech: Normal volume, Regular rate and rhythm, Suicidal Ideation:Yes Homicidal Ideation: Denies Hallucinations: Denies Delusions: None elicited Impulse Control: Unimpaired Insight and Judgment: Limited Memory: Normal Attention: Distractible Orientation: alert and oriented Assessment and Plan (1) Schizophrenia-F20.9 Current Visit: Yes Status: Acute Treatment Plan Patient admitted for inpatient psychiatric evaluation, medication adjustment and close monitoring The patient's behavior, mood, sleep and appetite will be closely monitored. Patient enrolled in individual and group therapeutic sessions and encouraged to attend. Patient provided with a safe and structured environment. Patient's physical health needs will be addressed by the Hospitalist. Hospitalist Consulted Labs including CBC, CMP, Lipid profile and Hemoglobin A1C levels ordered for baseline reference Social Assessment will be completed and the [employer] Conservation Laborer will work with patient and family to ensure a suitable and safe disposition Medication adjustment will be made as clinically indicated Continue current meds Usual Wellness Scientology/Preservation: - Start Trazodone 50 mg po QHS & 50 mg po QHS PRN between 10 PM & 2 AM for insomnia - Start Melatonin 5 mg po QHS to promote circadian rhythm The patient agreed on the treatment plan, understood the risk, benefit, alternative treatment, potential consequence of no treatment, and gave informed consent. Estimated days: 4 Post hospital care: primary care provider, psychiatric provider Case staffed with Dr. Amaya Medications and Allergies Allergies Allergy/AdvReac Type Severity Reaction Status Date / Time acetaminophen [From Tylenol] Allergy Rash Verified 12/28/20 10:08 aspirin Allergy Unknown Verified 12/28/20 10:08 furosemide [From Lasix] Allergy Rash Verified 12/28/20 10:08 Penicillins Allergy Rash Verified 12/28/20 10:08 Home Medications Medication Instructions Recorded Confirmed Last Taken Type Albuterol Mdi (or & Nicu Only) 2 puff IH QID PRN #1 inhalation 04/01/21 08/19/21 Unknown Rx [ProAir HFA Inhaler] Potassium Chloride [K-Dur] 20 meq PO BID #30 tab 04/01/21 08/19/21 Unknown Rx QUEtiapine [SEROquel] 100 mg PO QHS #30 tablet 04/01/21 08/19/21 Unknown Rx Sertraline [Zoloft] 25 mg PO QDAY #30 tablet 04/01/21 08/19/21 Unknown Rx Tamsulosin [Flomax] 0.4 mg PO DAILY #30 capsule 04/01/21 08/19/21 Unknown Rx amLODIPine 10 mg PO DAILY #30 04/01/21 08/19/21 Unknown Rx hydroCHLOROthiazide [Hctz] 25 mg PO QDAY #30 cap 04/01/21 08/19/21 Unknown Rx Albuterol Mdi (or & Nicu Only) 1 puff IH Q4-6H PRN #1 inha 04/28/21 08/19/21 Unknown Rx [ProAir HFA Inhaler] Azithromycin [Zithromax] 500 mg PO QDAY #5 tablet 04/28/21 Unknown Rx Benzonatate [Tessalon Perles] 100 mg PO Q8HR #20 capsule 04/28/21 08/19/21 Unknown Rx Active Meds: Active Medications Albuterol (Albuterol 8.5 Gm Mdi Inhalation) 2 puff IH QIDRT PRN PRN Reason: Shortness Of Breath Amlodipine Besylate (Amlodipine 10 Mg Tab) 10 mg PO DAILY [facility] Last Admin: 08/20/21 10:38 Dose: 10 mg Documented by: Hydrochlorothiazide (Hydrochlorothiazide 25 Mg Tab) 25 mg PO QDAY [facility] Last Admin: 08/20/21 10:38 Dose: 25 mg Documented by: Hydroxyzine Pamoate (Hydroxyzine Pamoate 50 Mg Cap) 50 mg PO Q6H PRN PRN Reason: Anxiety Last Admin: 08/21/21 00:28 Dose: 50 mg Documented by: Ibuprofen (Ibuprofen 200 Mg Tab) 200 mg PO Q6H PRN PRN Reason: Pain, Mild (1-3) Last Admin: 08/20/21 22:46 Dose: 200 mg Documented by: Potassium Chloride (Potassium Chloride Er 20 Meq Tab) 20 meq PO BID [facility] Last Admin: 08/20/21 21:40 Dose: 20 meq Documented by: Quetiapine Fumarate (Quetiapine 100 Mg Tab) 100 mg PO QHS [facility] Last Admin: 08/20/21 21:40 Dose: 100 mg Documented by: Sertraline HCl (Sertraline 25 Mg Tab) 25 mg PO QDAY [facility] Last Admin: 08/20/21 10:38 Dose: 25 mg Documented by: Tamsulosin HCl (Tamsulosin 0.4 Mg Cap) 0.4 mg PO DAILY [facility] Last Admin: 08/20/21 14:57 Dose: 0.4 mg Documented by: Results - Results Labs/Vitals: Laboratory Last Values POC Glucose 97 mg/dL (70-105) 08/19/21 19:00 TSH 2.090 mlU/mL (0.270-4.200) 08/20/21 09:58 Hepatitis A IgM Ab Non-reactive (NonReactive) 08/20/21 09:58 Hep Bs Antigen Nonreactive (Negative) 08/20/21 09:58 Hep B Core IgM Ab Non-reactive (NonReactive) 08/20/21 09:58 Hepatitis C Antibody Non-reactive (NonReactive) 08/20/21 09:58 Last Vital Signs Temp 98.5 F 08/21/21 07:46 Pulse 90 08/21/21 07:46 Resp 18 08/21/21 07:46 BP 153/112 08/21/21 07:46 Pulse Ox 95 08/21/21 07:46
[2021-08-21] MEDS: amLODIPine 10 MG TAB PO SCH (09:33)
[2021-08-21] MEDS: SERTRALINE 25 MG TAB PO SCH (09:34)
[2021-08-21] MEDS: hydroCHLOROthiazide 25 MG TAB PO SCH (09:34)
[2021-08-21] MEDS: POTASSIUM CHLORIDE ER 20 MEQ TAB PO SCH ×2 (09:34→22:06)
[2021-08-21] MEDS: TAMSULOSIN 0.4 MG CAP PO SCH (09:34)
[2021-08-21] MEDS: QUEtiapine 100 MG TAB PO SCH (22:06)
[2021-08-22] MEDS: hydroCHLOROthiazide 25 MG TAB PO SCH (09:49)
[2021-08-22] MEDS: TAMSULOSIN 0.4 MG CAP PO SCH (09:49)
[2021-08-22] MEDS: POTASSIUM CHLORIDE ER 20 MEQ TAB PO SCH ×2 (09:49→21:13)
[2021-08-22] MEDS: IBUPROFEN 200 MG TAB PO PRN ×2 (09:49→22:31)
[2021-08-22] MEDS: SERTRALINE 25 MG TAB PO SCH (09:49)
--- NOTE | 2021-08-22 10:27 | Progress Note ---
Subjective Date of service: 08/22/21 Principal diagnosis: schizophrenia Subjective Comment: The patient was seen today, he is asking to leave. He says "I'm not suicidal or nothing like that. I need to go." He says someone told him that his window was broken out. I informed the patient that his outpatient resources has to be set up in order to ensue his safety. REVIEW OF SYSTEMS Constitutional: Negative for weight loss ENT: Negative for stridor Respiratory: Negative for cough or hemoptysis All other systems reviewed and are negative MENTAL STATUS EXAMINATION General Appearance and Behavior: Age appropriate, good hygiene, wearing appro priate clothes. Cooperation: cooperative Psychomotor Behavior: Psychomotor normal Mood:Depressed/irritable Affect and affective range: Incongruent with stated mood Thought Process: Tangential Thought Content: None Speech: Normal volume, Regular rate and rhythm, Suicidal Ideation: Denies Homicidal Ideation: Denies Hallucinations: Denies Delusions: None elicited Impulse Control: Unimpaired Insight and Judgment: Limited Memory: Normal Attention: Distractible Orientation: alert and oriented Assessment and Plan (1) Schizophrenia-F20.9 Current Visit: Yes Status: Acute Treatment Plan Patient admitted for inpatient psychiatric evaluation, medication adjustment an d close monitoring The patient's behavior, mood, sleep and appetite will be closely monitored. Patient enrolled in individual and group therapeutic sessions and encouraged to attend. Patient provided with a safe and structured environment. Patient's physical health needs will be addressed by the Hospitalist. Hospitalist Consulted Labs including CBC, CMP, Lipid profile and Hemoglobin A1C levels ordered for baseline reference Social Assessment will be completed and the Theatrical Agent will work with patient and family to ensure a suitable and safe disposition Medication adjustment will be made as clinically indicated No changes made today Usual Wellness Uatsdin/Preservation: - Start Trazodone 50 mg po QHS & 50 mg po QHS PRN between 10 PM & 2 AM for insomnia - Start Melatonin 5 mg po QHS to promote circadian rhythm The patient agreed on the treatment plan, understood the risk, benefit, alternative treatment, potential consequence of no treatment, and gave informed consent. Estimated days: 4 Post hospital care: primary care provider, psychiatric provider Case staffed with Dr. Amaya Medications and Allergies Allergies Allergy/AdvReac Type Severity Reaction Status Date / Time acetaminophen [From Tylenol] Allergy Rash Verified 12/28/20 10:08 aspirin Allergy Unknown Verified 12/28/20 10:08 furosemide [From Lasix] Allergy Rash Verified 12/28/20 10:08 Penicillins Allergy Rash Verified 12/28/20 10:08 Home Medications Medication Instructions Recorded Confirmed Last Taken Type Albuterol Mdi (or & Nicu Only) 2 puff IH QID PRN #1 inhalation 04/01/21 08/19/21 Unknown Rx [ProAir HFA Inhaler] Potassium Chloride [K-Dur] 20 meq PO BID #30 tab 04/01/21 08/19/21 Unknown Rx QUEtiapine [SEROquel] 100 mg PO QHS #30 tablet 04/01/21 08/19/21 Unknown Rx Sertraline [Zoloft] 25 mg PO QDAY #30 tablet 04/01/21 08/19/21 Unknown Rx Tamsulosin [Flomax] 0.4 mg PO DAILY #30 capsule 04/01/21 08/19/21 Unknown Rx amLODIPine 10 mg PO DAILY #30 04/01/21 08/19/21 Unknown Rx hydroCHLOROthiazide [Hctz] 25 mg PO QDAY #30 cap 04/01/21 08/19/21 Unknown Rx Albuterol Mdi (or & Nicu Only) 1 puff IH Q4-6H PRN #1 inha 04/28/21 08/19/21 Unknown Rx [ProAir HFA Inhaler] Azithromycin [Zithromax] 500 mg PO QDAY #5 tablet 04/28/21 Unknown Rx Benzonatate [Tessalon Perles] 100 mg PO Q8HR #20 capsule 04/28/21 08/19/21 Unknown Rx Active Meds: Active Medications Albuterol (Albuterol 8.5 Gm Mdi Inhalation) 2 puff IH QIDRT PRN PRN Reason: Shortness Of Breath Amlodipine Besylate (Amlodipine 10 Mg Tab) 10 mg PO DAILY [facility] Last Admin: 08/21/21 09:33 Dose: 10 mg Documented by: Hydrochlorothiazide (Hydrochlorothiazide 25 Mg Tab) 25 mg PO QDAY [facility] Last Admin: 08/22/21 09:49 Dose: 25 mg Documented by: Hydroxyzine Pamoate (Hydroxyzine Pamoate 50 Mg Cap) 50 mg PO Q6H PRN PRN Reason: Anxiety Last Admin: 08/21/21 00:28 Dose: 50 mg Documented by: Ibuprofen (Ibuprofen 200 Mg Tab) 200 mg PO Q6H PRN PRN Reason: Pain, Mild (1-3) Last Admin: 08/22/21 09:49 Dose: 200 mg Documented by: Potassium Chloride (Potassium Chloride Er 20 Meq Tab) 20 meq PO BID [facility] Last Admin: 08/22/21 09:49 Dose: 20 meq Documented by: Quetiapine Fumarate (Quetiapine 100 Mg Tab) 100 mg PO QHS [facility] Last Admin: 08/21/21 22:06 Dose: 100 mg Documented by: Sertraline HCl (Sertraline 25 Mg Tab) 25 mg PO QDAY [facility] Last Admin: 08/22/21 09:49 Dose: 25 mg Documented by: Tamsulosin HCl (Tamsulosin 0.4 Mg Cap) 0.4 mg PO DAILY [facility] Last Admin: 08/22/21 09:49 Dose: 0.4 mg Documented by: Results - Results Labs/Vitals: Laboratory Last Values POC Glucose 97 mg/dL (70-105) 08/19/21 19:00 TSH 2.090 mlU/mL (0.270-4.200) 08/20/21 09:58 Hepatitis A IgM Ab Non-reactive (NonReactive) 08/20/21 09:58 Hep Bs Antigen Nonreactive (Negative) 08/20/21 09:58 Hep B Core IgM Ab Non-reactive (NonReactive) 08/20/21 09:58 Hepatitis C Antibody Non-reactive (NonReactive) 08/20/21 09:58 Last Vital Signs Temp 98.6 F 08/21/21 18:59 Pulse 101 H 08/21/21 18:59 Resp 18 08/21/21 18:59 BP 144/102 08/21/21 18:59 Pulse Ox 94 08/21/21 18:59
--- NOTE | 2021-08-22 10:31 | Consultation ---
History of Present Illness - Reason for Consult Consult date: 08/22/21 medical consult Requesting physician: GRAHAM BARKLEY - History of Present Illness 56-year-old male patient was admitted to the psych unit with history of hearing voices and seeing things as well as suicidal ideation and homicidal ideation for further evaluation and management. Patient has significant medical history with history of hypertension, congestive heart failure, seizure disorder, BPH, GERD, COPD, tobacco and alcohol use. At the time of my evaluation patient is alert awake denies any suicidal thoughts or ideation However complains of generalized body pains and request for pain medications Patient denies any chest pain or shortness of breath, Denies headache or dizziness Denies nausea vomiting or abdominal pain, Denies palpitation. Past History Past Medical History: COPD, heart failure, hypertension, other (BPH, gout) Past Surgical History: No surgical history Social history: smoking, alcohol abuse Family history: no significant family history Medications and Allergies Allergies Allergy/AdvReac Type Severity Reaction Status Date / Time acetaminophen [From Tylenol] Allergy Rash Verified 12/28/20 10:08 aspirin Allergy Unknown Verified 12/28/20 10:08 furosemide [From Lasix] Allergy Rash Verified 12/28/20 10:08 Penicillins Allergy Rash Verified 12/28/20 10:08 Home Medications Medication Instructions Recorded Confirmed Last Taken Type Albuterol Mdi (or & Nicu Only) 2 puff IH QID PRN #1 inhalation 04/01/21 08/19/21 Unknown Rx [ProAir HFA Inhaler] Potassium Chloride [K-Dur] 20 meq PO BID #30 tab 04/01/21 08/19/21 Unknown Rx QUEtiapine [SEROquel] 100 mg PO QHS #30 tablet 04/01/21 08/19/21 Unknown Rx Sertraline [Zoloft] 25 mg PO QDAY #30 tablet 04/01/21 08/19/21 Unknown Rx Tamsulosin [Flomax] 0.4 mg PO DAILY #30 capsule 04/01/21 08/19/21 Unknown Rx amLODIPine 10 mg PO DAILY #30 04/01/21 08/19/21 Unknown Rx hydroCHLOROthiazide [Hctz] 25 mg PO QDAY #30 cap 04/01/21 08/19/21 Unknown Rx Albuterol Mdi (or & Nicu Only) 1 puff IH Q4-6H PRN #1 inha 04/28/21 08/19/21 Unknown Rx [ProAir HFA Inhaler] Azithromycin [Zithromax] 500 mg PO QDAY #5 tablet 04/28/21 Unknown Rx Benzonatate [Tessalon Perles] 100 mg PO Q8HR #20 capsule 04/28/21 08/19/21 Unknown Rx Active Meds: Active Medications Albuterol (Albuterol 8.5 Gm Mdi Inhalation) 2 puff IH QIDRT PRN PRN Reason: Shortness Of Breath Amlodipine Besylate (Amlodipine 10 Mg Tab) 10 mg PO DAILY [facility] Last Admin: 08/21/21 09:33 Dose: 10 mg Documented by: Hydrochlorothiazide (Hydrochlorothiazide 25 Mg Tab) 25 mg PO QDAY [facility] Last Admin: 08/22/21 09:49 Dose: 25 mg Documented by: Hydroxyzine Pamoate (Hydroxyzine Pamoate 50 Mg Cap) 50 mg PO Q6H PRN PRN Reason: Anxiety Last Admin: 08/21/21 00:28 Dose: 50 mg Documented by: Ibuprofen (Ibuprofen 200 Mg Tab) 200 mg PO Q6H PRN PRN Reason: Pain, Mild (1-3) Last Admin: 08/22/21 09:49 Dose: 200 mg Documented by: Potassium Chloride (Potassium Chloride Er 20 Meq Tab) 20 meq PO BID [facility] Last Admin: 08/22/21 09:49 Dose: 20 meq Documented by: Quetiapine Fumarate (Quetiapine 100 Mg Tab) 100 mg PO QHS [facility] Last Admin: 08/21/21 22:06 Dose: 100 mg Documented by: Sertraline HCl (Sertraline 25 Mg Tab) 25 mg PO QDAY [facility] Last Admin: 08/22/21 09:49 Dose: 25 mg Documented by: Tamsulosin HCl (Tamsulosin 0.4 Mg Cap) 0.4 mg PO DAILY [facility] Last Admin: 08/22/21 09:49 Dose: 0.4 mg Documented by: Review of Systems Constitutional: no weight loss, no weight gain, no anorexia, no fatigue Ears, nose, mouth and throat: no nasal congestion, no nasal discharge Cardiovascular: no chest pain, no palpitations Respiratory: no cough, no shortness of breath Gastrointestinal: no abdominal pain, no nausea, no vomiting Genitourinary Male: no dysuria, no hematuria Musculoskeletal: arthritis, other (Back pain) Integumentary: no rash, no lesions Neurological: no weakness, no seizures Psychiatric: suicidal ideation, hallucinations, other (Homicidal ideation), no anxiety, no depression Endocrine: no cold intolerance Hematologic/Lymphatic: no easy bruising, no easy bleeding Allergic/Immunologic: no urticaria, no allergic rhinitis Exam - Constitutional Vitals: Temp Pulse Resp BP Pulse Ox 98.6 F 101 H 18 144/102 94 08/21/21 18:59 08/21/21 18:59 08/21/21 18:59 08/21/21 18:59 08/21/21 18:59 General appearance: Present: no acute distress, well-nourished - EENT Eyes: Present: PERRL, EOM intact - Neck Neck: Present: supple, normal ROM - Respiratory Respiratory effort: normal Respiratory: bilateral: diminished, negative: rales, rhonchi, wheezing - Cardiovascular Rhythm: regular Heart Sounds: Present: S1 & S2 - Extremities Extremities: no ischemia, No edema - Abdominal General gastrointestinal: Present: soft, non-tender, non-distended, normal bowel sounds - Integumentary Integumentary: Present: clear, warm - Musculoskeletal Musculoskeletal: strength equal bilaterally - Psychiatric Psychiatric: appropriate mood/affect, cooperative - Neurologic Neurologic: moves all extremities Assessment and Plan --Hypertension; moderate control Continue current antihypertensives, as needed hydralazine --History of congestive heart failure; unknown ejection fraction Continue current home medications, cardiology consult if needed Low-salt diet ambulate as tolerated --History of gout; on steroids Patient will follow with salesperson sewing machines upon discharge --History of COPD; well compensated Patient is not hypoxic, inhalers as needed Oxygen as needed --History of BPH; Continue tamsulosin --Morbid obesity; BMI 76.7 Patient needs weight reduction when medically stable Patient also needs sleep study to rule out obstructive sleep apnea --DVT prophylaxis; SCDs while resting --Ongoing tobacco use; Smoking cessation counseling done, nicotine patch as needed Closely monitor the patient and adjust the management as needed Plan of care reviewed with the patient and his nurse Thank you for this consultation We will follow the patient along with you
[2021-08-22] MEDS: amLODIPine 10 MG TAB PO SCH (10:33)
[2021-08-22] MEDS: QUEtiapine 100 MG TAB PO SCH (21:13)
[2021-08-23] MEDS: SERTRALINE 25 MG TAB PO SCH (09:25)
[2021-08-23] MEDS: TAMSULOSIN 0.4 MG CAP PO SCH (09:25)
[2021-08-23] MEDS: amLODIPine 10 MG TAB PO SCH (09:25)
[2021-08-23] MEDS: POTASSIUM CHLORIDE ER 20 MEQ TAB PO SCH ×2 (09:25→22:07)
[2021-08-23] MEDS: hydroCHLOROthiazide 25 MG TAB PO SCH (09:25)
--- NOTE | 2021-08-23 10:32 | Progress Note ---
Subjective Date of service: 08/23/21 Principal diagnosis: schizophrenia Subjective Comment: The patient was seen today, he is upset about not going home. He denies SI/HI or hallucinations of any kind. I spoke with the SW and she states that she was unable to make the patient outpatient set up in order to ensue continuity of mental health. Advised the patient that it would be tomorrow. REVIEW OF SYSTEMS Constitutional: Negative for weight loss ENT: Negative for stridor Respiratory: Negative for cough or hemoptysis All other systems reviewed and are negative MENTAL STATUS EXAMINATION General Appearance and Behavior: Age appropriate, good hygiene, wearing appropriate clothes. Cooperation: cooperative Psychomotor Behavior: Psychomotor normal Mood:Depressed/irritable Affect and affective range: Incongruent with stated mood Thought Process: Tangential Thought Content: None Speech: Normal volume, Regular rate and rhythm, Suicidal Ideation: Denies Homicidal Ideation: Denies Hallucinations: Denies Delusions: None elicited Impulse Control: Unimpaired Insight and Judgment: Limited Memory: Normal Attention: Distractible Orientation: alert and oriented Assessment and Plan (1) Schizophrenia-F20.9 Current Visit: Yes Status: Acute Treatment Plan Patient admitted for inpatient psychiatric evaluation, medication adjustment and close monitoring The patient's behavior, mood, sleep and appetite will be closely monitored. Patient enrolled in individual and group therapeutic sessions and encouraged to attend. Patient provided with a safe and structured environment. Patient's physical health needs will be addressed by the Hospitalist. Hospitalist Consulted Labs including CBC, CMP, Lipid profile and Hemoglobin A1C levels ordered for baseline reference Social Assessment will be completed and the Steel Box Toe Inserter will work with patient and family to ensure a suitable and safe disposition Medication adjustment will be made as clinically indicated No changes made today Usual Wellness Jewish/Preservation: - Start Trazodone 50 mg po QHS & 50 mg po QHS PRN between 10 PM & 2 AM for insomnia - Start Melatonin 5 mg po QHS to promote circadian rhythm The patient agreed on the treatment plan, understood the risk, benefit, alternative treatment, potential consequence of no treatment, and gave informed consent. Estimated days: 4 Post hospital care: primary care provider, psychiatric provider Case staffed with Dr. Amaya Medications and Allergies Allergies Allergy/AdvReac Type Severity Reaction Status Date / Time acetaminophen [From Tylenol] Allergy Rash Verified 12/28/20 10:08 aspirin Allergy Unknown Verified 12/28/20 10:08 furosemide [From Lasix] Allergy Rash Verified 12/28/20 10:08 Penicillins Allergy Rash Verified 12/28/20 10:08 Home Medications Medication Instructions Recorded Confirmed Last Taken Type Albuterol Mdi (or & Nicu Only) 2 puff IH QID PRN #1 inhalation 04/01/21 08/19/21 Unknown Rx [ProAir HFA Inhaler] Potassium Chloride [K-Dur] 20 meq PO BID #30 tab 04/01/21 08/19/21 Unknown Rx QUEtiapine [SEROquel] 100 mg PO QHS #30 tablet 04/01/21 08/19/21 Unknown Rx Sertraline [Zoloft] 25 mg PO QDAY #30 tablet 04/01/21 08/19/21 Unknown Rx Tamsulosin [Flomax] 0.4 mg PO DAILY #30 capsule 04/01/21 08/19/21 Unknown Rx amLODIPine 10 mg PO DAILY #30 04/01/21 08/19/21 Unknown Rx hydroCHLOROthiazide [Hctz] 25 mg PO QDAY #30 cap 04/01/21 08/19/21 Unknown Rx Albuterol Mdi (or & Nicu Only) 1 puff IH Q4-6H PRN #1 inha 04/28/21 08/19/21 Unknown Rx [ProAir HFA Inhaler] Azithromycin [Zithromax] 500 mg PO QDAY #5 tablet 04/28/21 08/23/21 Unknown Rx Benzonatate [Tessalon Perles] 100 mg PO Q8HR #20 capsule 04/28/21 08/19/21 Unknown Rx Active Meds: Active Medications Albuterol (Albuterol 8.5 Gm Mdi Inhalation) 2 puff IH QIDRT PRN PRN Reason: Shortness Of Breath Amlodipine Besylate (Amlodipine 10 Mg Tab) 10 mg PO DAILY [facility] Last Admin: 08/23/21 09:25 Dose: 10 mg Documented by: Hydrochlorothiazide (Hydrochlorothiazide 25 Mg Tab) 25 mg PO QDAY [facility] Last Admin: 08/23/21 09:25 Dose: 25 mg Documented by: Hydroxyzine Pamoate (Hydroxyzine Pamoate 50 Mg Cap) 50 mg PO Q6H PRN PRN Reason: Anxiety Last Admin: 08/23/21 10:21 Dose: 50 mg Documented by: Ibuprofen (Ibuprofen 200 Mg Tab) 200 mg PO Q6H PRN PRN Reason: Pain, Mild (1-3) Last Admin: 08/22/21 22:31 Dose: 200 mg Documented by: Potassium Chloride (Potassium Chloride Er 20 Meq Tab) 20 meq PO BID [facility] Last Admin: 08/23/21 09:25 Dose: 20 meq Documented by: Quetiapine Fumarate (Quetiapine 100 Mg Tab) 100 mg PO QHS [facility] Last Admin: 08/22/21 21:13 Dose: 100 mg Documented by: Sertraline HCl (Sertraline 25 Mg Tab) 25 mg PO QDAY [facility] Last Admin: 08/23/21 09:25 Dose: 25 mg Documented by: Tamsulosin HCl (Tamsulosin 0.4 Mg Cap) 0.4 mg PO DAILY [facility] Last Admin: 08/23/21 09:25 Dose: 0.4 mg Documented by: Results - Results Labs/Vitals: Laboratory Last Values POC Glucose 97 mg/dL (70-105) 08/19/21 19:00 TSH 2.090 mlU/mL (0.270-4.200) 08/20/21 09:58 Hepatitis A IgM Ab Non-reactive (NonReactive) 08/20/21 09:58 Hep Bs Antigen Nonreactive (Negative) 08/20/21 09:58 Hep B Core IgM Ab Non-reactive (NonReactive) 08/20/21 09:58 Hepatitis C Antibody Non-reactive (NonReactive) 08/20/21 09:58 Last Vital Signs Temp 98.7 F 08/22/21 19:28 Pulse 99 H 08/23/21 09:25 Resp 20 08/22/21 22:31 BP 137/116 08/23/21 09:25 Pulse Ox 96 08/22/21 19:28
[2021-08-23] MEDS ORDERED: hydrALAZINE 10 MG TAB PO PRN (11:31)
[2021-08-23] MEDS ORDERED: METOPROLOL TARTRATE 25 MG TAB PO ONE (11:41)
[2021-08-23] MEDS: busPIRone 5 MG TAB PO SCH (22:06)
[2021-08-23] MEDS: QUEtiapine 100 MG TAB PO SCH (22:07)
[2021-08-23] MEDS: IBUPROFEN 200 MG TAB PO PRN (22:10)
--- NOTE | 2021-08-24 09:45 | Discharge Summary ---
Providers - Providers Date of Admission: 08/19/21 16:47 Date of discharge: 08/24/21 Attending physician: GRAHAM BARKLEY MD 08/19/21 14:57 Consult to Physician [CONS] Routine Comment: Consulting Provider: JACKI CULLEN Physician Instructions: Reason For Exam: manage existing medical conditions Primary care physician: MARINE STRUCTURAL DESIGNER Hospitalization Reason for admission: SI Condition: Stable Disposition: 01 HOME / SELF CARE / HOMELESS Time spent for discharge: 35 Allergies/Adverse Reactions: Allergies acetaminophen [From Tylenol] Allergy (Verified 12/28/20 10:08) Rash aspirin Allergy (Verified 12/28/20 10:08) Unknown furosemide [From Lasix] Allergy (Verified 12/28/20 10:08) Rash Penicillins Allergy (Verified 12/28/20 10:08) Rash Vital Signs: Last Vital Signs Temp 98.7 F 08/23/21 19:26 Pulse 92 H 08/23/21 19:56 Resp 18 08/23/21 22:10 BP 147/105 08/23/21 19:56 Pulse Ox 94 08/23/21 19:26 Last Lab: Laboratory Last Values POC Glucose 97 mg/dL (70-105) 08/19/21 19:00 TSH 2.090 mlU/mL (0.270-4.200) 08/20/21 09:58 Hepatitis A IgM Ab Non-reactive (NonReactive) 08/20/21 09:58 Hep Bs Antigen Nonreactive (Negative) 08/20/21 09:58 Hep B Core IgM Ab Non-reactive (NonReactive) 08/20/21 09:58 Hepatitis C Antibody Non-reactive (NonReactive) 08/20/21 09:58 Core Measure Documentation - Palliative Care Palliative Care/ Comfort Measures: Not Applicable - Core Measures Any of the following diagnoses?: none Exam - Constitutional Vitals: Temp Pulse Resp BP Pulse Ox 98.7 F 92 H 18 147/105 94 08/23/21 19:26 08/23/21 19:56 08/23/21 22:10 08/23/21 19:56 08/23/21 19:26 General appearance: Present: no acute distress - EENT Eyes: Present: PERRL, EOM intact ENT: hearing intact, clear oral mucosa - Neck Neck: Present: supple, normal ROM - Respiratory Respiratory effort: normal Plan Activity: advance as tolerated Weight Bearing Status: Weight Bear as Tolerated Care Plan Goals: Maintain good and stable mental health Plan of Treatment: The patient should be compliant with medications, not to use drugs, and not to drink alcohol. The patient understands that if suicidal ideas, homicidal ideas or any endangering feeling arise, the patient should seek assistance including, but not limited to crisis hotline, and emergency room. Follow up with: PRIMARY CARE, [Primary Care Provider] - 7 Days Prescriptions: QUEtiapine [SEROquel] 100 mg PO QHS #30 tablet busPIRone [Buspar] 7.5 mg PO BID #45 tablet hydrOXYzine PAMOATE [Vistaril] 50 mg PO BID #60 capsule Sertraline [Zoloft] 25 mg PO QDAY #30 tablet
[2021-08-24] MEDS: hydroCHLOROthiazide 25 MG TAB PO SCH (09:49)
[2021-08-24] MEDS: IBUPROFEN 200 MG TAB PO PRN (09:50)
[2021-08-24] MEDS: amLODIPine 10 MG TAB PO SCH (09:50)
[2021-08-24] MEDS: busPIRone 5 MG TAB PO SCH (09:50)
[2021-08-24] MEDS: SERTRALINE 25 MG TAB PO SCH (09:51)
[2021-08-24] MEDS: TAMSULOSIN 0.4 MG CAP PO SCH (09:51)
[2021-08-24] MEDS: POTASSIUM CHLORIDE ER 20 MEQ TAB PO SCH (09:51)
[2021-08-24 09:55] VITALS: BP 135/86
== END 2021-08-24 11:00 | disposition home or self-care (01) | DRG 885 ==
LOC: UNDOADMIN 14:06 → 3A 14:06 → 5A 16:47
PROVIDERS: ADMIT Psychiatry & Neurology Psychiatry; ATTEND Psychiatry & Neurology Psychiatry
DX: F20.9 Schizophrenia, unspecified (principal); Z20.822 Contact with and (suspected) exposure to COVID-19; E66.01 Morbid (severe) obesity due to excess calories; Z68.45 Body mass index [BMI] 70 or greater, adult
CPT/HCPCS: 36415; 80048; 80074; 80307; 80320; 81001; 82962; 84443; 85025; G0378; G0480; J1630; Q0177; U0003

== ENCOUNTER 2021-10-13 07:40 | Observation (INO) | payer MEDICAID ==
[2021-10-13] MEDS ORDERED: HYDROcodone/ACETAMINOPHEN 5-325 MG TAB PO ONE (08:30)
--- NOTE | 2021-10-13 08:31 | Emergency Department Report ---
ED General Adult HPI - General Chief complaint: Fall Stated complaint: CHEST PAIN Time Seen by Provider: 10/13/21 08:15 Source: patient, EMS Mode of arrival: Stretcher Limitations: No Limitations - History of Present Illness Initial comments: 56 year old male with a past medical history of asthma, CHF, hypertension, hyperlipidemia, depression, and alcohol abuse presents to the ER today with complaints of anterior chest pain after syncopal episode 3 to 4 days ago. Patient states that he remembers walking from his den towards his room when he started to feel dizzy, generally weak and then passed out. He states that his was witness to the syncopal episode. He states that he thinks his told him he was out for about 5 minutes. He states woke up, he was on the floor, and started having pain to his anterior chest. He states that he thinks he may have injured his rib when he fell. He states that the pain is worse when he takes a deep breath, and when he moves. He states that today he felt like there was a pop in his chest and he became concerned that he may have a fracture. He also states that the pain radiates into his back. He has chronic underlying shortness of breath secondary asthma but states that since has been having the pain he feels like he has had increasing shortness of breath. He denies any worsening lower extremity swelling. He denies any head injury 3 to 4 days ago. He denies any fever or chills. Patient states that in the past 2 weeks this is the second time he passed out. He states that the first episode was similar to that of this episode where he felt dizzy while walking and passed out but was not having any chest pain but he states he did hit his head at the time. He states that he did not go to the ER when he passed out the first time. He states that he does drink beer every day about 6 pack/day. Last time he drank was yesterday. He states that he has been trying to decrease the amount has been drinking over the past few days. He denies any prior history of alcohol withdrawal seizures, or DTs. He denies hx PE/dvt and denies risk factors for PE or DVT. He denies hx CAD. He admits to tobacco use. MD Complaint: Chest wall pain/syncope -: days(s) (3-4 days ago ) - Related Data Previous Rx's Medication Instructions Recorded Last Taken Type Potassium Chloride [K-Dur] 20 meq PO BID #30 tab 04/01/21 10/12/21 Rx Tamsulosin [Flomax] 0.4 mg PO DAILY #30 capsule 04/01/21 10/12/21 Rx hydroCHLOROthiazide [HCTZ] 25 mg PO QDAY #30 cap 04/01/21 10/12/21 Rx QUEtiapine [SEROquel] 100 mg PO QHS #30 tablet 08/24/21 10/12/21 Rx Sertraline [Zoloft] 25 mg PO QDAY #30 tablet 08/24/21 10/12/21 Rx busPIRone [Buspar] 7.5 mg PO BID #45 tablet 08/24/21 10/12/21 Rx Allergies Allergy/AdvReac Type Severity Reaction Status Date / Time acetaminophen [From Tylenol] Allergy Rash Verified 12/28/20 10:08 aspirin Allergy Unknown Verified 12/28/20 10:08 furosemide [From Lasix] Allergy Rash Verified 12/28/20 10:08 Penicillins Allergy Rash Verified 12/28/20 10:08 ED Review of Systems ROS: Stated complaint: CHEST PAIN Other details as noted in HPI Comment: All other systems reviewed and negative Constitutional: denies: chills, diaphoresis, fever, malaise Eyes: denies: eye pain, eye discharge, vision change ENT: denies: ear pain, throat pain Respiratory: shortness of breath. denies: cough, orthopnea, SOB with exertion, SOB at rest, wheezing Cardiovascular: chest pain, syncope. denies: palpitations, dyspnea on exertion, orthopnea, edema, paroxysmal nocturnal dyspnea Gastrointestinal: denies: abdominal pain, nausea, diarrhea, constipation, hematemesis, melena, hematochezia Genitourinary: denies: urgency, dysuria Neurological: weakness, other (dizzy ) Psychiatric: denies: anxiety, depression, auditory hallucinations, visual hallucinations, homicidal thoughts, suicidal thoughts Hematological/Lymphatic: denies: easy bleeding, easy bruising, swollen glands ED Past Medical Hx - Past Medical History Hx Hypertension: Yes Hx Congestive Heart Failure: Yes Hx Diabetes: No Hx Renal Disease: No Hx Arthritis: No Hx Seizures: Yes Hx Psychiatric Treatment: Yes (Schizophrenia) Hx Asthma: Yes Hx COPD: No Additional medical history: BPH, GOUT - Surgical History Additional Surgical History: Right forearm tendon repair, right lower extremity tendon repair - Social History Smoking Status: Current Some Day Smoker - Medications Home Medications: Home Medications Medication Instructions Recorded Confirmed Last Taken Type Potassium Chloride [K-Dur] 20 meq PO BID #30 tab 04/01/21 10/13/21 10/12/21 Rx Tamsulosin [Flomax] 0.4 mg PO DAILY #30 capsule 04/01/21 10/13/21 10/12/21 Rx hydroCHLOROthiazide [HCTZ] 25 mg PO QDAY #30 cap 04/01/21 10/13/21 10/12/21 Rx QUEtiapine [SEROquel] 100 mg PO QHS #30 tablet 08/24/21 10/13/21 10/12/21 Rx Sertraline [Zoloft] 25 mg PO QDAY #30 tablet 08/24/21 10/13/21 10/12/21 Rx busPIRone [Buspar] 7.5 mg PO BID #45 tablet 08/24/21 10/13/21 10/12/21 Rx ED Physical Exam - General Limitations: No Limitations General appearance: alert, in no apparent distress - Head Head exam: Present: atraumatic, normocephalic, normal inspection - Eye Eye exam: Present: normal appearance, PERRL, EOMI Pupils: Present: normal accommodation - Neck Neck exam: Present: normal inspection, full ROM. Absent: meningismus - Respiratory Respiratory exam: Present: normal lung sounds bilaterally, chest wall tenderness (Bilateral parasternal/sternal tenderness; no swelling, crepitus, deformity, bruising or erythema open wounds noted.). Absent: respiratory distress, wheezes, rales, rhonchi - Cardiovascular Cardiovascular Exam: Present: regular rate, normal rhythm, normal heart sounds - GI/Abdominal GI/Abdominal exam: Present: soft. Absent: distended, tenderness, guarding, rebound - Extremities Exam Extremities exam: Present: normal inspection, full ROM. Absent: pedal edema, calf tenderness - Back Exam Back exam: Present: paraspinal tenderness (left upper thoracic area.) - Neurological Exam Neurological exam: Present: alert, oriented X3, CN II-XII intact, normal gait ED Course Vital Signs 10/13/21 10/13/21 10/13/21 07:43 07:44 09:43 Temperature 98.0 F 98.3 F Pulse Rate 95 H 73 Respiratory 16 18 Rate Blood Pressure 160/100 159/91 [Right] O2 Sat by Pulse 98 99 98 Oximetry ED Medical Decision Making - Lab Data Result diagrams: 10/13/21 10:37 10/13/21 10:37 - EKG Data EKG shows normal: sinus rhythm Rate: normal - EKG Data Interpretation: normal EKG - Radiology Data Radiology results: report reviewed Patient: DARIUSZ PINEDO MR#: [id number] 258 : 1965 Acct:[id number] Age/Sex: 56 / M ADM Date: 10/13/21 Loc: ED Attending Dr: Ordering Physician: ESTER ZURITA Date of Service: 10/13/21 Procedure(s): XR chest routine 2V Accession Number(s): [id number] cc: ESTER ZURITA Fluoro Time In Minutes: CHEST 2 VIEWS INDICATION / CLINICAL INFORMATION: syncope/fall/rib pain. COMPARISON: 04/28/2021 FINDINGS: SUPPORT DEVICES: None. HEART / MEDIASTINUM: No significant abnormality. LUNGS / PLEURA: No significant pulmonary or pleural abnormality. No pneumothorax. ADDITIONAL FINDINGS: No significant additional findings. IMPRESSION: 1. No acute findings. Signer Name: Roge Forman MD Signed: 10/13/2021 9:01 AM Workstation Name: [id number] Transcribed By: SS Dictated By: Roge Forman MD Electronically Authenticated By: Roge Forman MD Signed Date/Time: 10/13/21900 DD/ 8 TD/TT: - Medical Decision Making 1330: All labs reviewed --CBC, CMP unremarkable. Initial troponin negative. EKG shows normal sinus rhythm without any signs of a STEMI, acute ischemic changes or significant dysrhythmias. Chest x-ray shows nothing acute. Patient states that he still continues to have pain despite the [place] and the morphine. Patient pain could be musculoskeletal in nature, but given his risk factors, and also him having 2 syncopal episodes in the past 2 weeks it is best that patient be admitted for further cardiac work-up. 1340: Discussed case with Dr. Pena, agree with evaluation and admission. 1350: Discussed case with hospitalist, Dr. Navarro for admission. Critical care attestation.: If time is entered above; I have spent that time in minutes in the direct care of this critically ill patient, excluding procedure time. ED Disposition Clinical Impression: Chest pain, Chest wall pain, Syncope Disposition: 09 ADMITTED INPATIENT Is pt being admited?: Yes Condition: Stable Instructions: Syncope (ED) Referrals: PRIMARY CARE,MD [Primary Care Provider] - 3-5 Days
[2021-10-13] MEDS: SODIUM CHLORIDE 0.9% 1000 ML 1,000 ML IV ONE ×2 (08:42→11:32)
--- NOTE | 2021-10-13 09:05 | XRay Report ---
CHEST 2 VIEWS INDICATION / CLINICAL INFORMATION: syncope/fall/rib pain. COMPARISON: 04/28/2021 FINDINGS: SUPPORT DEVICES: None. HEART / MEDIASTINUM: No significant abnormality. LUNGS / PLEURA: No significant pulmonary or pleural abnormality. No pneumothorax. ADDITIONAL FINDINGS: No significant additional findings. IMPRESSION: 1. No acute findings. Signer Name: Roge Forman MD Signed: 10/13/2021 9:01 AM Workstation Name: [id number]
[2021-10-13 10:49] LABS: Amphetamine Screen,Urine Negative; Benzodiazepines Screen,Urine Negative; Cocaine Screen,Urine Negative; Methadone Screen,Urine Negative; Opiate Screen,Urine Negative
[2021-10-13 11:07] LABS: Basophils % (Auto) 0.6 % (0.0-1.8); Eosinophils # (Auto) 0.1 K/mm3 (0.0-0.4); Eosinophils % (Auto) 3.6 % (0.0-4.3); Hemoglobin 14.1 gm/dl (11.8-15.2); Lymphocytes % (Auto) 30.2 % (13.4-35.0); Mean Corpuscular HGB Conc 33 % (32-34); Mean Corpuscular Volume 101 fl (84-94); Monocytes # (Auto) 0.5 K/mm3 (0.0-0.8); Monocytes % (Auto) 14.1 % (0.0-7.3); Platelet Count 191 K/mm3 (140-440); Red Blood Count 4.27 M/mm3 (3.65-5.03); Red Cell Distribution Width 16.5 % (13.2-15.2)
[2021-10-13 11:16] LABS: Alanine Aminotransferase 74 units/L (7-56); Albumin 3.9 g/dL (3.9-5); BUN/Creatinine Ratio 12; Blood Urea Nitrogen 11 mg/dL (9-20); Calcium 8.3 mg/dL (8.4-10.2); Hemolysis Index 5
[2021-10-13] MEDS ORDERED: MORPHINE 4 MG/1 ML INJ IV ONE (11:21)
[2021-10-13] MEDS ORDERED: ASPIRIN 325 MG TAB PO ONE (11:21)
[2021-10-13] MEDS ORDERED: ONDANSETRON 4 MG/2 ML INJ IV ONE (11:21)
--- NOTE | 2021-10-13 11:25 | Electrocardiograph Report ---
[facility] Test Date: 2021-10-13 Test Time: 09:36:17 Pat Name: DARIUSZ PINEDO Department: Room: Gender: M [employer] T[employer]: JUAN : 1965 Requested By: ESTER ZURITA Order Number: [id number] Reading MD: Enrrique Kim Measurements Intervals [place] Rate: 72 P: -12 GA: 160 QRS: -14 QRSD: 88 T: 17 QT: 406 QTc: 445 Interpretive Statements Sinus rhythm Compared to ECG 04/28/2021 17:19:54 No significant changes Electronically Signed On 10-13-2021 11:24:40 EST by Enrrique Kim
[2021-10-13 11:41] LABS: Cannabinoid Screen,Urine Positive
[2021-10-13] MEDS ORDERED: cloNIDine 0.2 MG TAB PO ONE (13:26)
[2021-10-13] MEDS ORDERED: NITROGLYCERIN 2% OINT 1 GM TP ONE (13:45)
[2021-10-13] MEDS ORDERED: HYDROmorphone 1 MG/1 ML INJ IV ONE (14:33)
--- NOTE | 2021-10-13 15:41 | History and Physical Report ---
History of Present Illness Date of examination: 10/13/21 Date of admission: 10/13/21 13:52 Chief complaint: Chest pain for 4 days History of present illness: History of Present Illness 56-year-old -[place] male with history of asthma, CHF, hypertension, bipolar disorder and alcohol dependence comes in for left-sided chest pain of 4 days duration. Chest pain is intermittent but severe. Retrosternal. Nonradiating. No diaphoresis or shortness of breath. Patient also had a witnessed seizure 4 days ago. But did not seek any medical attention. He states that his was a witness for the syncopal episode. Apparently his thinks that he had an injured and contusion of the left chest when he fell. Chest pain is nearly persistent. Pain is about 8 on a scale of 1-10. Patient very anxious. No nausea vomiting. No fever or chills. No cough. Patient smokes about half a pack a day. Alcohol on a regular basis. Could not quant burt. Vaccination status was not asked during history taking. - Past Medical History --Hypertension: Yes --Congestive Heart Failure: Yes --Seizures: Yes --Psychiatric Treatment: Yes (Schizophrenia) --Asthma: Yes --Additional medical history: BPH, GOUT - Surgical History --Additional Surgical History: Right forearm tendon repair, right lower extremity tendon repair - Social History --Smoking Status: Current Some Day Smoker -Family history --Htn - Medications --Home Medications: Home Medications Medication Instructions Recorded Confirmed Last Taken Type Potassium Chloride [K-Dur] 20 meq PO BID #30 tab 04/01/21 10/13/21 10/12/21 Rx Tamsulosin [Flomax] 0.4 mg PO DAILY #30 capsule 04/01/21 10/13/21 10/12/21 Rx hydroCHLOROthiazide [HCTZ] 25 mg PO QDAY #30 cap 04/01/21 10/13/21 10/12/21 Rx QUEtiapine [SEROquel] 100 mg PO QHS #30 tablet 08/24/21 10/13/21 10/12/21 Rx Sertraline [Zoloft] 25 mg PO QDAY #30 tablet 08/24/21 10/13/21 10/12/21 Rx busPIRone [Buspar] 7.5 mg PO BID #45 tablet 08/24/21 10/13/2121 Rx - Review of Systems --ROS: --Stated complaint: CHEST PAIN ---Other details as noted in HPI --Comment: All other systems reviewed and negative --Constitutional: denies: chills, diaphoresis, fever, malaise --Eyes: denies: eye pain, eye discharge, vision change --ENT: denies: ear pain, throat pain --Respiratory: shortness of breath. denies: cough, orthopnea, SOB with exertion, SOB at rest, wheezing --Cardiovascular: chest pain, syncope. denies: palpitations, dyspnea on exertion, orthopnea, edema, paroxysmal nocturnal dyspnea --Gastrointestinal: denies: abdominal pain, nausea, diarrhea, constipation, hematemesis, melena, hematochezia --Genitourinary: denies: urgency, dysuria --Neurological: weakness, other (dizzy ) --Psychiatric: denies: anxiety, depression, auditory hallucinations, visual hallucinations, homicidal thoughts, suicidal thoughts --Hematological/Lymphatic: denies: easy bleeding, easy bruising, swollen glands Medications and Allergies Allergies Allergy/AdvReac Type Severity Reaction Status Date / Time acetaminophen [From Tylenol] Allergy Rash Verified 12/28/20 10:08 aspirin Allergy Unknown Verified 12/28/20 10:08 furosemide [From Lasix] Allergy Rash Verified 12/28/20 10:08 Penicillins Allergy Rash Verified 12/28/20 10:08 Home Medications Medication Instructions Recorded Confirmed Last Taken Type Potassium Chloride [K-Dur] 20 meq PO BID #30 tab 04/01/21 10/13/21 10/12/21 Rx Tamsulosin [Flomax] 0.4 mg PO DAILY #30 capsule 04/01/21 10/13/21 10/12/21 Rx hydroCHLOROthiazide [HCTZ] 25 mg PO QDAY #30 cap 04/01/21 10/13/21 10/12/21 Rx QUEtiapine [SEROquel] 100 mg PO QHS #30 tablet 08/24/21 10/13/21 10/12/21 Rx Sertraline [Zoloft] 25 mg PO QDAY #30 tablet 08/24/21 10/13/21 10/12/21 Rx busPIRone [Buspar] 7.5 mg PO BID #45 tablet 10/10/0410/13/21 10/12/21 Rx Exam - Constitutional Vitals: Temp Pulse Resp BP Pulse Ox 98.3 F 90 18 174/111 98 10/13/21 09:43 10/13/21 14:40 10/13/21 09:43 10/13/21 14:40 10/13/21 09:43 General appearance: Present: no acute distress, well-nourished - EENT Eyes: Present: PERRL ENT: hearing intact, clear oral mucosa - Neck Neck: Present: supple, normal ROM - Respiratory Respiratory effort: normal Respiratory: bilateral: CTA - Cardiovascular Heart rate: 78 Rhythm: regular Heart Sounds: Present: S1 & S2. Absent: rub, click - Extremities Extremities: pulses symmetrical, No edema Peripheral Pulses: within normal limits - Abdominal General gastrointestinal: Present: soft, non-tender, non-distended, normal bowel sounds Male genitourinary: Present: normal - Integumentary Integumentary: Present: clear, warm, dry - Musculoskeletal Musculoskeletal: gait normal, strength equal bilaterally - Psychiatric Psychiatric: appropriate mood/affect, intact judgment & insight - Neurologic Neurologic: CNII-XII intact, moves all extremities HEART Score - HEART Score History: Moderately suspicious EKG: Non-specific Risk factors: 1-2 risk factors Troponin: Troponin T < 0.010 ng/mL (0.00-0.029) 10/13/21 13:33 Troponin: < normal limit - Critical Actions Critical Actions: 4-6 pts:12-16.6% risk of adverse cardiac event. Should be admitted Results - Labs CBC & Chem 7: 10/14/21 05:21 10/14/21 05:21 Labs: Laboratory Last Values WBC 3.4 K/mm3 (4.5-11.0) L 10/13/21 10:37 RBC 4.27 M/mm3 (3.65-5.03) 10/13/21 10:37 Hgb 14.1 gm/dl (11.8-15.2) 10/13/21 10:37 Hct 43.0 % (35.5-45.6) 10/13/21 10:37 MCV 101 fl (84-94) H 10/13/21 10:37 MCH 33 pg (28-32) H 10/13/21 10:37 MCHC 33 % (32-34) 10/13/21 10:37 RDW 16.5 % (13.2-15.2) H 10/13/21 10:37 Plt Count 191 K/mm3 (140-440) 10/13/21 10:37 Lymph % (Auto) 30.2 % (13.4-35.0) 10/13/21 10:37 [place] % (Auto) 14.1 % (0.0-7.3) H 10/13/21 10:37 Eos % (Auto) 3.6 % (0.0-4.3) 10/13/21 10:37 Baso % (Auto) 0.6 % (0.0-1.8) 10/13/21 10:37 Lymph # (Auto) 1.0 K/mm3 (1.2-5.4) L 10/13/21 10:37 [place] # (Auto) 0.5 K/mm3 (0.0-0.8) 10/13/21 10:37 Eos # (Auto) 0.1 K/mm3 (0.0-0.4) 10/13/21 10:37 Baso # (Auto) 0.0 K/mm3 (0.0-0.1) 10/13/21 10:37 Seg Neutrophils % 51.5 % (40.0-70.0) 10/13/21 10:37 Seg Neutrophils # 1.7 K/mm3 (1.8-7.7) L 10/13/21 10:37 Sodium 142 mmol/L (137-145) 10/13/21 10:37 Potassium 3.8 mmol/L (3.6-5.0) 10/13/21 10:37 Chloride 104.4 mmol/L (98-107) 10/13/21 10:37 Carbon Dioxide 23 mmol/L (22-30) 10/13/21 10:37 Anion Gap 18 mmol/L 10/13/21 10:37 BUN 11 mg/dL (9-20) 10/13/21 10:37 Creatinine 0.9 mg/dL (0.8-1.3) 10/13/21 10:37 Estimated GFR > 60 ml/min 10/13/21 10:37 BUN/Creatinine Ratio 12 % 10/13/21 10:37 Glucose 99 mg/dL (75-100) 10/13/21 10:37 Calcium 8.3 mg/dL (8.4-10.2) L 10/13/21 10:37 Total Bilirubin 0.40 mg/dL (0.1-1.2) 10/13/21 10:37 AST 60 units/L (5-40) H 10/13/21 10:37 ALT 74 units/L (7-56) H 10/13/21 10:37 Alkaline Phosphatase 82 units/L (35-129) 10/13/21 10:37 Troponin T < 0.010 ng/mL (0.00-0.029) 10/13/21 13:33 NT-Pro-B Natriuret Pep 8.60 pg/mL (0-900) 10/13/21 10:37 Total Protein 7.1 g/dL (6.3-8.2) 10/13/21 10:37 Albumin 3.9 g/dL (3.9-5) 10/13/21 10:37 Albumin/Globulin Ratio 1.2 % 10/13/21 10:37 Urine Opiates Screen Negative 10/13/21 08:30 Urine Methadone Screen Negative 10/13/21 08:30 Ur Barbiturates Screen Negative 10/13/21 08:30 Ur Phencyclidine Scrn Negative 10/13/21 08:30 Ur Amphetamines Screen Negative 10/13/21 08:30 U Benzodiazepines Scrn Negative 10/13/21 08:30 Urine Cocaine Screen Negative 10/13/21 08:30 U Marijuana (THC) Screen Positive 10/13/21 08:30 Drugs of Abuse Note Disclamer 10/13/21 08:30 Plasma/Serum Alcohol < 0.01 % (0-0.07) 10/13/21 10:37 Short CBC 10/13/21 10/14/21 Range/Units 10:37 05:21 WBC 3.4 L 3.4 L (4.5-11.0) K/mm3 Hgb 14.1 12.9 (11.8-15.2) gm/dl Hct 43.0 38.9 (35.5-45.6) % Plt Count 191 163 (140-440) K/mm3 BMP 10/13/21 10/14/21 10:37 05:21 Sodium 142 142 Potassium 3.8 4.0 Chloride 104.4 106.0 Carbon Dioxide 23 26 BUN 11 10 Creatinine 0.9 0.9 Glucose 99 95 Calcium 8.3 L 8.4 Cardiac Enzymes 10/13/21 10/13/21 10/13/21 Range/Units 10:37 13:33 16:30 Troponin T < 0.010 < 0.010 < 0.010 (0.00-0.029) ng/mL 10/13/21 10/14/21 Range/Units 23:12 05:21 Troponin T < 0.010 < 0.010 (0.00-0.029) ng/mL Liver Function 10/13/21 10/14/21 Range/Units 10:37 05:21 Total Bilirubin 0.40 0.40 (0.1-1.2) mg/dL AST 60 H 43 H (5-40) units/L ALT 74 H 57 H (7-56) units/L Alkaline Phosphatase 82 79 (35-129) units/L Albumin 3.9 3.7 L (3.9-5) g/dL - Imaging and Cardiology EKG: report reviewed (Sinus rhythm no acute ST-T wave changes) Assessment and Plan Advance Directives: Yes (Full code) VTE prophylaxis?: Chemical Plan of care discussed with patient/family: Yes - Patient Problems (1) Acute coronary syndrome Current Visit: Yes Status: Acute Plan to address problem: Serial troponins and Lexiscan in the morning Chest wall contusion in the differential diagnosis (2) Chest wall pain Current Visit: Yes Status: Acute Plan to address problem: Chest wall contusion injury in the differential diagnosis Localized tenderness present in the left mammary area No rib fractures (3) Syncope Current Visit: Yes Status: Acute Plan to address problem: Syncope work-up Carotid duplex scan and echocardiogram (4) BPH (benign prostatic hyperplasia) Current Visit: No Status: Chronic Qualifiers: Lower urinary tract symptom presence: symptoms present Plan to address problem: Continue tamsulosin (5) Transaminitis Current Visit: Yes Status: Acute Plan to address problem: Acute hepatitis profile requested Possibly secondary to EtOH dependence (6) Tetrahydrocannabinol (THC) dependence Current Visit: Yes Status: Acute Plan to address problem: Counseled (7) Nicotine dependence Current Visit: Yes Status: Chronic Qualifiers: Nicotine product type: cigarettes Plan to address problem: Patient counseled Started on NicoDerm patch (8) DVT prophylaxis Current Visit: Yes Status: Acute Plan to address problem: On anticoagulation GI prophylaxis (9) Advance directive discussed with patient Current Visit: Yes Status: Acute Plan to address problem: Disease education, collected, care plan discussed, diagnosis discussed, prognosis discussed, patient is full code, patient acknowledged understanding and agree with care plan. +30 minutes
[2021-10-13] MEDS ORDERED: ONDANSETRON 4 MG/2 ML INJ IV PRN (15:47)
[2021-10-13] MEDS ORDERED: ACETAMINOPHEN 325 MG TAB PO PRN (15:47)
[2021-10-13] MEDS ORDERED: METOCLOPRAMIDE 10 MG/2 ML INJ IV PRN (15:50)
[2021-10-13] MEDS ORDERED: PROMETHAZINE 25 MG RECT SUPP PR PRN (15:50)
[2021-10-13] MEDS ORDERED: SODIUM CHLORIDE 0.9% 1000 ML 1,000 ML IV SCH (16:00)
[2021-10-13] MEDS: busPIRone 5 MG TAB PO SCH ×2 (16:45→22:07)
[2021-10-13] MEDS: HEPARIN 5,000 UNIT/1 ML VIAL SUB-Q SCH ×2 (16:46→22:14)
[2021-10-13] MEDS: hydroCHLOROthiazide 12.5 MG CAP PO SCH (16:46)
[2021-10-13] MEDS: FAMOTIDINE 20 MG/2 ML INJ IV SCH ×2 (16:47→22:06)
[2021-10-13] MEDS: TAMSULOSIN 0.4 MG CAP PO SCH (17:00)
[2021-10-13] MEDS: SERTRALINE 25 MG TAB PO SCH (17:00)
[2021-10-13] MEDS: POTASSIUM CHLORIDE ER 20 MEQ TAB PO SCH (17:00)
[2021-10-13] MEDS: HYDROmorphone 1 MG/1 ML INJ IV PRN ×2 (20:11→23:32)
[2021-10-13] MEDS ORDERED: QUEtiapine 100 MG TAB PO SCH (22:00)
[2021-10-14] MEDS: HYDROmorphone 1 MG/1 ML INJ IV PRN (04:52)
[2021-10-14 06:05] LABS: Basophils % (Auto) 0.6 % (0.0-1.8); Eosinophils # (Auto) 0.2 K/mm3 (0.0-0.4); Eosinophils % (Auto) 5.5 % (0.0-4.3); Hematocrit 38.9 % (35.5-45.6); Hemoglobin 12.9 gm/dl (11.8-15.2); Lymphocytes # (Auto) 1.4 K/mm3 (1.2-5.4); Lymphocytes % (Auto) 40.3 % (13.4-35.0); Mean Corpuscular HGB Conc 33 % (32-34); Mean Corpuscular Volume 101 fl (84-94); Monocytes # (Auto) 0.4 K/mm3 (0.0-0.8); Monocytes % (Auto) 11.7 % (0.0-7.3); Platelet Count 163 K/mm3 (140-440); Red Blood Count 3.87 M/mm3 (3.65-5.03); Red Cell Distribution Width 16.4 % (13.2-15.2)
[2021-10-14 06:16] LABS: Alanine Aminotransferase 57 units/L (7-56); Albumin 3.7 g/dL (3.9-5); BUN/Creatinine Ratio 11; Blood Urea Nitrogen 10 mg/dL (9-20); Calcium 8.4 mg/dL (8.4-10.2); Hemolysis Index 8
[2021-10-14] MEDS: oxyCODONE /ACETAMINOPHEN 5-325MG TAB PO PRN ×2 (07:41→14:15)
[2021-10-14] MEDS ORDERED: REGADENOSON 0.4 MG/5 ML INJ IV ONE (08:17)
--- NOTE | 2021-10-14 11:10 | Nuclear Medicine Report ---
APPROVED REPORT Exam: Nuclear Stress Test Indication: Chest pain Patient Location: [address] [place] [address] Room #: 482 Ht: 6 ft 2 in Wt: 273 lbs BSA: 2.48 m2 HR: 68 bpmBP: 183/117 mmHgBMI: 35.04 Rhythm: NSR Medical History Medical History: COPD Stress Test Details Stress Test: Pharmacologic stress testing performed using 0.4 mg of regadenoson per 5 mL given IV over 10 seconds. HR Resting HR: 68 bpm Max HR Achieved: 104 bpm Max Heart Rate (APMHR): 162 bpm Target HR (85% APMHR): 137 bpm % of APMHR: 64 Recovery HR: 87 bpm BP Resting BP: 183/117 mmHg Max BP: 183/117 mmHg Recovery BP: 158/110 mmHg ECG Resting ECG: Sinus Rhythm,early repolarizationchanges noted. Stress ECG: Sinus Rhythm ST Change: None Arrhythmia: None Recovery ECG: Sinus Rhythm Recovery ST Change: None Recovery Arrhythmia: None Clinical Reason for Termination: Completed protocol Stress Symptoms: None Stress ECG Conclusion Patient remained in S.R,no ST changes to suggest ischemia. NM EXAM: Myocardial Perfusion REST/STRESS Resting Data Rest SPECT myocardial perfusion imaging was performed in supine position 45 minutes following the intravenous injection of 10 mCi of Tc-99m Myoview. Time of rest injection: 0800 Date: Pharmacologic Stress Pharmacologic stress test was performed by injecting Regadenoson 0.4 mg IV push followed by the intravenous injection of 28 mCi of Tc-99m Myoview. Time of stress injection: 1000 Date: Gated Stress SPECT was performed 30 minutes after stress injection. The images were gated to evaluate regional wall motion and calculate left ventricular ejection fraction. Study Data Post stress, the left ventricular ejection was 49%.. TID = 0.89. LVEF 49% post vasodilation. Perfusion Nuclear Conclusion ECG Findings: negative for ischemia Clinical Findings: negative for ischemia Nuclear Findings: negative for ischemia Exercise Capacity: not assessed Left Ventricular Function: normal Risk Study: low Normal study. No scintigraphic evidence for myocardial ischemia or scar. Post stress, the left ventricular ejection was 49%.No wall motion abnormalities noted. Conclusion Patient remained in S.R,no ST changes to suggest ischemia.
[2021-10-14] MEDS: POTASSIUM CHLORIDE ER 20 MEQ TAB PO SCH (11:29)
[2021-10-14] MEDS: SERTRALINE 25 MG TAB PO SCH (11:29)
[2021-10-14] MEDS: busPIRone 5 MG TAB PO SCH (11:29)
[2021-10-14] MEDS: TAMSULOSIN 0.4 MG CAP PO SCH (11:29)
[2021-10-14] MEDS: hydroCHLOROthiazide 12.5 MG CAP PO SCH (11:30)
[2021-10-14] MEDS: NICOTINE 14 MG/24 HR PATCH TD SCH ×2 (11:30→11:33)
[2021-10-14] MEDS: HEPARIN 5,000 UNIT/1 ML VIAL SUB-Q SCH (11:30)
[2021-10-14] MEDS: FAMOTIDINE 20 MG/2 ML INJ IV SCH (11:31)
[2021-10-14] MEDS ORDERED: hydrALAZINE 20 MG/1 ML INJ IV ONE (11:47)
--- NOTE | 2021-10-14 13:07 | Vascular Lab Report ---
DUPLEX DOPPLER ULTRASOUND CAROTID, BILATERAL INDICATION / CLINICAL INFORMATION: Syncope. COMPARISON: None available. FINDINGS: RIGHT CAROTID: No significant atherosclerotic plaque. - PLAQUE ESTIMATE (%): < 50% - CCA velocity: 69 cm/sec. - ICA peak systolic velocity: 66 cm/sec. - ICA/CCA PSV Ratio: Less than 2. Right Vertebral Artery: Antegrade flow. LEFT CAROTID: Mild calcified/noncalcified atherosclerotic plaque. - PLAQUE ESTIMATE (%): < 50% - CCA velocity: 66 cm/sec. - ICA peak systolic velocity: 76 cm/sec. - ICA/CCA PSV Ratio: Less than 2. Left Vertebral Artery: Antegrade flow. IMPRESSION: 1. Right Internal Carotid Artery: Normal. No stenosis. 2. Left Internal Carotid Artery: Less than 50% diameter stenosis. Velocity criteria are extrapolated from diameter data as defined by the Society of Radiologists [place] [facility] Consensus Conference, Radiology 2003; 229;340-346. NO STENOSIS (NORMAL) - Plaque = none; ICA PSV < 125 cm/sec; ICA/CCA PSV Ratio < 2.0 <50% STENOSIS - Plaque < 50%; ICA PSV < 125 cm/sec; ICA/CCA PSV Ratio < 2.0 50-69% STENOSIS - Plaque > 50%; ICA PSV = 125-230 cm/sec; ICA/CCA PSV Ratio = 2.0-4.0 >70% BUT <100% STENOSIS - Plaque > 50%; ICA PSV > 230 cm/sec; ICA/CCA PSV Ratio > 4.0 NEAR OCCLUSION - Plaque = visible lumen; ICA PSV = high/low/none; ICA/CCA PSV Ratio = variable TOTAL OCCLUSION - Plaque = no lumen; ICA PSV = none; ICA/CCA PSV Ratio = N/A Scribed by: Glenis Ernandez RDNV, RVT Scribed: 10/14/2021 12:01 PM I have reviewed the images, agree with this report, and edited this report as needed. Signer Name: Anibal Brantley MD Signed: 10/14/2021 1:02 PM Workstation Name: [id number]
[2021-10-14 13:08] VITALS: BP 150/99
[2021-10-14] MEDS ORDERED: LOSARTAN 50 MG TAB PO SCH (15:00)
--- NOTE | 2021-10-14 15:35 | Discharge Summary ---
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 Chest pain is intermittent but severe. Retrosternal. Nonradiating. No diaphoresis or shortness of breath. Patient also had a witnessed seizure 4 days ago. But did not seek any medical attention. He states that his was a witness for the syncopal episode. Apparently his thinks that he had an injured and contusion of the left chest when he fell. Chest pain is nearly persistent. Pain is about 8 on a scale of 1-10. Patient very anxious. No nausea vomiting. No fever or chills. No cough. Patient smokes about half a pack a day. Alcohol on a regular basis. Could not quantify. Vaccination status was not asked during history taking. Assessment and Plan Advance Directives: Yes (Full code) VTE prophylaxis?: Chemical Plan of care discussed with patient/family: Yes - Patient Problems (1) Acute coronary syndrome Current Visit: Yes Status: Acute Plan to address problem: Lexiscan is negative Chest wall tenderness present Chest wall contusion injury (2) Chest wall pain Current Visit: Yes Status: Acute Plan to address problem: Chest wall tenderness present Chest wall contusion injury (3) Syncope Current Visit: Yes Status: Acute Plan to address problem: Syncope work-up as outpatient with continuous Holter monitor Referred to cardiology Carotid duplex scan and echocardiogram--- nonspecific (4) BPH (benign prostatic hyperplasia) Current Visit: No Status: Chronic Qualifiers: Lower urinary tract symptom presence: symptoms present Plan to address problem: Continue tamsulosin (5) Transaminitis Current Visit: Yes Status: Acute Plan to address problem: Acute hepatitis profile requested Possibly secondary to EtOH dependence (6) Tetrahydrocannabinol (THC) dependence Current Visit: Yes Status: Acute Plan to address problem: Counseled (7) Nicotine dependence Current Visit: Yes Status: Chronic Qualifiers: Nicotine product type: cigarettes Plan to address problem: Patient counseled Started on NicoDerm patch (8) hypertension : Losartan increased to 100 mg once a day (9) Advance directive discussed with patient Current Visit: Yes Status: Acute Plan to address problem: Disease education, collected, care plan discussed, diagnosis discussed, prognosis discussed, patient is full code, patient acknowledged understanding and agree with care plan. +30 minutes Disposition: 01 HOME / SELF CARE / HOMELESS Final Discharge Diagnosis (Prints w/discharge instructions): Acute coronary syndrome. HTN. Chest wall contusion injury. Recurrent syncope. BPH THC dependence EtOH dependence - Discharge Diagnoses (1) Acute coronary syndrome Status: Acute (2) Chest wall pain Status: Acute (3) Syncope Status: Acute (4) BPH (benign prostatic hyperplasia) Status: Chronic Qualifiers: Lower urinary tract symptom presence: symptoms present (5) Transaminitis Status: Acute (6) Tetrahydrocannabinol (THC) dependence Status: Acute (7) Nicotine dependence Status: Chronic Qualifiers: Nicotine product type: cigarettes (8) DVT prophylaxis Status: Acute (9) Advance directive discussed with patient Status: Acute Core Measure Documentation - Palliative Care Palliative Care/ Comfort Measures: Not Applicable - Core Measures Any of the following diagnoses?: none Exam - Constitutional Vitals: Temp Pulse Resp BP Pulse Ox 98.0 F 109 H 20 150/99 95 10/14/21 11:31 10/14/21 12:43 10/14/21 12:43 10/14/21 12:43 10/14/21 12:43 General appearance: Present: no acute distress, well-nourished - EENT Eyes: Present: PERRL ENT: hearing intact, clear oral mucosa - Neck Neck: Present: supple, normal ROM - Respiratory Respiratory effort: normal Respiratory: bilateral: CTA Details: Left anterior chest wall tenderness present - Cardiovascular Heart rate: 78 Rhythm: regular Heart Sounds: Present: S1 & S2. Absent: rub, click - Extremities Extremities: no ischemia, pulses symmetrical, No edema Peripheral Pulses: within normal limits - Abdominal General gastrointestinal: Present: soft, non-tender, non-distended, normal bowel sounds Male genitourinary: Present: normal - Integumentary Integumentary: Present: clear, warm, dry - Musculoskeletal Musculoskeletal: gait normal, strength equal bilaterally - Psychiatric Psychiatric: appropriate mood/affect, intact judgment & insight - Neurologic Neurologic: CNII-XII intact, moves all extremities - Allied Health Allied health notes reviewed: nursing, case management Plan Activity: no restrictions Diet: low fat, low cholesterol, low salt Follow up with: PRIMARY CARE, [Primary Care Provider] - 3-5 Days MARCELO QUINN MD [Staff Physician] - 7 Days
== END 2021-10-14 16:31 | disposition home or self-care (01) ==
LOC: ED 07:40 → 4A 13:52
PROVIDERS: ADMIT Internal Medicine; ATTEND Internal Medicine
DX: I24.9 Acute ischemic heart disease, unspecified (principal); R07.89 Other chest pain; R55 Syncope and collapse; N40.0 Benign prostatic hyperplasia without lower urinary tract symptoms; I11.0 Hypertensive heart disease with heart failure; I50.9 Heart failure, unspecified; M10.9 Gout, unspecified; J45.909 Unspecified asthma, uncomplicated; F12.20 Cannabis dependence, uncomplicated; F17.210 Nicotine dependence, cigarettes, uncomplicated; R74.01 Elevation of levels of liver transaminase levels; F20.9 Schizophrenia, unspecified; R56.9 Unspecified convulsions; Z79.899 Other long term (current) drug therapy; Z98.890 Other specified postprocedural states
CPT/HCPCS: 36415; 71046; 78452; 80053; 80307; 83880; 84484; 85025; 93005; 93017; 93880; 96361; 96372; 96374; 96375; 96376; 99285; A9502; G0378; J0360; J1170; J1644; J2270; J2405; J2785; J3490; J7030; 80320; Q0162; G0480

== ENCOUNTER 2022-02-11 22:13 | Emergency (ER) | payer MEDICAID ==
--- NOTE | 2022-02-12 00:05 | Emergency Department Report ---
ED General Adult HPI - General Chief complaint: Dizziness Stated complaint: BILATERAL LEG EDEMA/BLOOD IN STOOL Time Seen by Provider: 02/11/22 23:19 Source: EMS Mode of arrival: Stretcher Limitations: No Limitations - History of Present Illness Initial comments: 3 to 4 days of pain involving her lower extremities as well as the hands. Patient states that he has a history of gout and congestive heart failure denies any nausea, vomiting, diaphoresis, or palpitations. Patient states that previously he has been taking prednisone for his exacerbations of gout Severity scale (0 -10): 0 - Related Data Home Medications Medication Instructions Recorded Confirmed Last Taken Naproxen 500 mg PO BID 10/14/21 10/14/21 1 Week Ago ~10/07/21 Previous Rx's Medication Instructions Recorded Last Taken Type Potassium Chloride [K-Dur] 20 meq PO BID #30 tab 04/01/21 10/12/21 Rx Sertraline [Zoloft] 25 mg PO QDAY #30 tablet 08/24/21 10/12/21 Rx busPIRone [Buspar] 7.5 mg PO BID #45 tablet 08/24/21 10/12/21 Rx Losartan [Cozaar] 100 mg PO QDAY #30 tablet 10/14/21 Unknown Rx Meloxicam [Mobic] 15 mg PO QDAY #15 tablet 10/14/21 Unknown Rx Nicotine [Habitrol] 14 mg TD QDAY patch 10/14/21 Unknown Rx Pregabalin [Lyrica] 75 mg PO BID #30 capsule 10/14/21 Unknown Rx QUEtiapine [SEROquel] 100 mg PO QHS tablet 10/14/21 Unknown Rx Sertraline [Zoloft] 25 mg PO QDAY tablet 10/14/21 Unknown Rx Tamsulosin [Flomax] 0.4 mg PO DAILY capsule 10/14/21 Unknown Rx clonazePAM [Klonopin] 1 mg PO Q8H #24 tablet 10/14/21 Unknown Rx hydroCHLOROthiazide [HCTZ] 25 mg PO QDAY #30 capsule 10/14/21 Unknown Rx Naproxen 500 mg PO BID #30 tab 02/12/22 Unknown Rx predniSONE [Deltasone] 50 mg PO QDAY #5 tab 02/12/22 Unknown Rx Allergies Allergy/AdvReac Type Severity Reaction Status Date / Time furosemide [From Lasix] Allergy Rash Verified 10/14/21 09:56 Penicillins Allergy Rash Verified 10/14/21 09:56 ED Review of Systems ROS: Stated complaint: BILATERAL LEG EDEMA/BLOOD IN STOOL Other details as noted in HPI ED Past Medical Hx - Past Medical History Previous Medical History?: Yes Hx Hypertension: Yes Hx Congestive Heart Failure: Yes Hx Diabetes: No Hx Renal Disease: No Hx Arthritis: No Hx Seizures: Yes Hx Psychiatric Treatment: Yes (Schizophrenia) Hx Asthma: Yes Hx COPD: No Additional medical history: BPH, GOUT - Surgical History Past Surgical History?: Yes Additional Surgical History: Right forearm tendon repair, right lower extremity tendon repair - Social History Smoking Status: Current Some Day Smoker Substance Use Type: Alcohol - Medications Home Medications: Home Medications Medication Instructions Recorded Confirmed Last Taken Type Potassium Chloride [K-Dur] 20 meq PO BID #30 tab 04/01/21 10/13/21 10/12/21 Rx Sertraline [Zoloft] 25 mg PO QDAY #30 tablet 08/24/21 10/13/21 10/12/21 Rx busPIRone [Buspar] 7.5 mg PO BID #45 tablet 08/24/21 10/13/21 10/12/21 Rx Losartan [Cozaar] 100 mg PO QDAY #30 tablet 10/14/21 Unknown Rx Meloxicam [Mobic] 15 mg PO QDAY #15 tablet 10/14/21 Unknown Rx Naproxen 500 mg PO BID 10/14/21 10/14/21 1 Week Ago History ~10/07/21 Nicotine [Habitrol] 14 mg TD QDAY patch 10/14/21 Unknown Rx Pregabalin [Lyrica] 75 mg PO BID #30 capsule 10/14/21 Unknown Rx QUEtiapine [SEROquel] 100 mg PO QHS tablet 10/14/21 Unknown Rx Sertraline [Zoloft] 25 mg PO QDAY tablet 10/14/21 Unknown Rx Tamsulosin [Flomax] 0.4 mg PO DAILY capsule 10/14/21 Unknown Rx clonazePAM [Klonopin] 1 mg PO Q8H #24 tablet 10/14/21 Unknown Rx hydroCHLOROthiazide [HCTZ] 25 mg PO QDAY #30 capsule 10/14/21 Unknown Rx Naproxen 500 mg PO BID #30 tab 02/12/22 Unknown Rx predniSONE [Deltasone] 50 mg PO QDAY #5 tab 02/12/22 Unknown Rx ED Physical Exam - General Limitations: No Limitations ED Course Vital Signs 02/11/22 02/11/22 02/11/22 22:35 23:14 23:15 Temperature 98.8 F Pulse Rate 104 H Respiratory 18 Rate Blood Pressure 95/63 Blood Pressure 108/62 [Right] O2 Sat by Pulse 96 93 95 Oximetry 02/11/22 02/11/22 02/11/22 23:20 23:31 23:45 Temperature 98.1 F Pulse Rate 103 H Respiratory 19 Rate Blood Pressure 106/76 89/45 Blood Pressure 95/63 [Right] O2 Sat by Pulse 96 96 93 Oximetry 02/12/22 02/12/22 02/12/22 00:01 00:15 00:31 Temperature Pulse Rate Respiratory Rate Blood Pressure 85/50 104/65 91/62 Blood Pressure [Right] O2 Sat by Pulse 91 97 97 Oximetry 02/12/22 02/12/22 02/12/22 00:45 01:01 01:15 Temperature Pulse Rate Respiratory Rate Blood Pressure 89/62 89/63 89/63 Blood Pressure [Right] O2 Sat by Pulse 96 95 92 Oximetry 02/12/22 02/12/22 02/12/22 01:31 01:45 02:01 Temperature Pulse Rate Respiratory Rate Blood Pressure 89/63 89/63 89/63 Blood Pressure [Right] O2 Sat by Pulse 92 86 94 Oximetry 02/12/22 02/12/22 02/12/22 02:39 02:40 02:41 Temperature 97.9 F 98.0 F Pulse Rate 88 Respiratory 19 19 Rate Blood Pressure 149/91 Blood Pressure [Right] O2 Sat by Pulse 98 98 Oximetry Critical care attestation.: If time is entered above; I have spent that time in minutes in the direct care of this critically ill patient, excluding procedure time. ED Disposition Clinical Impression: Gout attack Disposition: 01 HOME / SELF CARE / HOMELESS Is pt being admited?: No Condition: Stable Additional Instructions: Take the medications as prescribed and follow-up with your primary physician next available appointment. You may return to the emergency department if any problems Prescriptions: predniSONE [Deltasone] 50 mg PO QDAY #5 tab Naproxen 500 mg PO BID #30 tab
[2022-02-12] MEDS: KETOROLAC 30 MG/1 ML INJ IM ONE (00:15)
[2022-02-12] MEDS: predniSONE 50 MG TAB PO ONE (02:05)
[2022-02-12 02:59] LABS: Bilirubin,Urine NEG (Negative); Blood,Urine SM (Negative); Color,Urine Yellow (Yellow); Mucus,Urine FEW /HPF; Protein,Urine <15 mg/dL mg/dL (Negative); RBC,Urine < 1.0 /HPF (0.0-6.0); Urobilinogen,Urine < 2.0 mg/dL (<2.0)
[2022-02-12 03:07] LABS: Amphetamine Screen,Urine PRESUMPTIVE NEGATIVE; Benzodiazepines Screen,Urine PRESUMPTIVE NEGATIVE; Cannabinoid Screen,Urine PRESUMPTIVE POSITIVE; Cocaine Screen,Urine PRESUMPTIVE NEGATIVE; Methadone Screen,Urine PRESUMPTIVE NEGATIVE; Opiate Screen,Urine PRESUMPTIVE NEGATIVE
[2022-02-12 04:36] VITALS: BP 130/72
== END 2022-02-12 04:41 | disposition home or self-care (01) ==
LOC: ED 22:13
DX: M10.9 Gout, unspecified (principal); I11.0 Hypertensive heart disease with heart failure; I50.9 Heart failure, unspecified; F20.9 Schizophrenia, unspecified; J45.909 Unspecified asthma, uncomplicated; F17.200 Nicotine dependence, unspecified, uncomplicated; Z72.89 Other problems related to lifestyle; Z88.0 Allergy status to penicillin; Z88.8 Allergy status to other drugs, medicaments and biological substances; Z79.899 Other long term (current) drug therapy
CPT/HCPCS: 80307; 81001; 96372; 99284; J1885; J7512